=== PATIENT | male | born 1940 | race Asian ===

== ENCOUNTER 2016-12-05 06:34 | Emergency (ER) | payer OTHER ==
[~2016-12-05] VITALS: Ht 160 cm; Wt 71.0 kg
[~2016-12-05 06:34] MED LIST: ACET-1600 PO; ASPI-515 PO; ATOR40TA PO; ATOR80TA75 PO; GABA100C8 PO; GLYB5TAB3 PO; LEVO500T33 PO; LOSA50TA6 PO; TELM1TAB2 PO
[2016-12-05] MEDS ORDERED: SODIUM CHLORIDE 0.9% 1,000 ML IV ONE (06:55)
[2016-12-05] MEDS ORDERED: DIPH,PERTUSS(ACELL),TET VAC/PF 0.5 ML IM-VACC ONE ×2 (07:00→07:22)
[2016-12-05] MEDS ORDERED: AMPICILLIN/SULBACTAM 3 GM in SODIUM CHLORIDE 0.9% 100 ML IVPB ONE (07:00)
[2016-12-05] MEDS ORDERED: MULT-717 PO (07:09)
[2016-12-05] MEDS ORDERED: GLIM4TAB2 PO (07:10)
[2016-12-05 07:25] LABS: HEMOGLOBIN 14.5 g/dL (13.7-18.0)
[2016-12-05 07:30] LABS: BLOOD UREA NITROGEN 32 mg/dL (7-18)
[2016-12-05 08:49] VITALS: BP 151/84
== END 2016-12-05 08:53 | disposition home or self-care (01) ==
LOC: ED 08:47
DX: L03.031 Cellulitis of right toe (principal); L60.0 Ingrowing nail; E11.40 Type 2 diabetes mellitus with diabetic neuropathy, unspecified; I10 Essential (primary) hypertension; E78.00 Pure hypercholesterolemia, unspecified; Z88.8 Allergy status to other drugs, medicaments and biological substances
CPT/HCPCS: 36415; 73630; 80048; 82040; 83605; 84550; 85025; 87040; 90471; 90715; 96365; 99285; J0295; J7030

== ENCOUNTER 2018-06-27 09:14 | Inpatient (IN) | payer OTHER, MEDICARE ==
[~2018-06-27] VITALS: Ht 160 cm; Wt 73.6 kg
[~2018-06-27 09:14] MED LIST changes: +ATOR-2 PO; -ATOR80TA75 PO; +GABA-826 PO; -GABA100C8 PO; +GLIM4TAB2 PO; -LEVO500T33 PO; +LEVO500T47 PO; -LOSA50TA6 PO; +LOSA50TA7 PO; +MULT-717 PO
[2018-06-27] MEDS ORDERED: SODIUM CHLORIDE FLUSH 10ML SYR IVF ONE (10:00)
[2018-06-27 10:21] LABS: BASOPHILS # (AUTO) 0.01 x10^3/uL (0-0.1); BASOPHILS % (AUTO) 0 % (0-1); EOSINOPHILS # (AUTO) 0.09 x10^3/uL (0-0.4); EOSINOPHILS % (AUTO) 1 % (1-7); LYMPHOCYTES % (AUTO) 6 % (22-44); MD NO; MEAN CORPUSCULAR HEMOGLOBIN 31.7 pg (27.5-34.5); MEAN CORPUSCULAR HGB CONC 33.6 g/dL (33.2-36.2); MEAN CORPUSCULAR VOLUME 94.4 fL (81-97); MEAN PLATELET VOLUME 7.1 fL (7.4-10.4); MONOCYTES # (AUTO) 0.42 x10^3/uL (0.2-0.8); MONOCYTES % (AUTO) 5 % (2-9); NEUTROPHILS % (AUTO) 88 % (42-75); PLATELET COUNT 259 x10^3/uL (130-400); RED BLOOD COUNT 4.48 x10^6/uL (4.38-5.82); RED CELL DISTRIBUTION WIDTH 13.1 % (9.4-14.8)
[2018-06-27 10:27] LABS: ALANINE AMINOTRANSFERASE 761 U/L (12-78); ALBUMIN 3.5 g/dL (3.4-5.0); ANION GAP 14 mmol/L (5-15); CALCIUM 8.9 mg/dL (8.5-10.1); CHLORIDE 85 mmol/L (98-107)
[2018-06-27 10:32] LABS: ALKALINE PHOSPHATASE 231 U/L (45-117); BILIRUBIN,TOTAL 5.1 mg/dL (0.2-1.0); CREATININE 1.75 mg/dL (0.7-1.3); TROPONIN I 0.072 ng/mL (0.000-0.045)
[2018-06-27] MEDS ORDERED: SODIUM CHLORIDE 0.9% 1,000 ML IV ONE (10:40)
[2018-06-27] MEDS ORDERED: ASPIRIN 81 MG TABLET CHEW ONE (10:50)
[2018-06-27 10:58] LABS: CULTURE INDICATED? YES; MICROSCOPIC INDICATED
[2018-06-27] MEDS ORDERED: ASPIRIN 81 MG TABLET CHEW PO ONE (11:00)
[2018-06-27 11:32] LABS: CREATINE KINASE, TOTAL 22134 U/L (39-308)
[2018-06-27] MEDS ORDERED: NS + 20MEQ KCL 1,000 ML IV SCH (11:32)
[2018-06-27] MEDS ORDERED: GLUCAGON 1 MG IM PRN (12:00)
[2018-06-27] MEDS ORDERED: ONDANSETRON 2MG/ML, 2ML IVPush PRN (12:00)
[2018-06-27] MEDS ORDERED: DEXTROSE 4 GM TAB.CHEW PO PRN (12:00)
[2018-06-27] MEDS ORDERED: DEXTROSE 50%, 50ML SYRINGE IVPush PRN (12:00)
[2018-06-27] MEDS ORDERED: hydrALAzine 20 MG/ML, 1ML IVPush PRN (12:00)
[2018-06-27] MEDS ORDERED: LABETALOL 5MG/ML, 20ML IVPush PRN (12:00)
[2018-06-27] MEDS ORDERED: OXYcodone IR 5MG TABLET PO PRN (12:00)
[2018-06-27 12:22] LABS: CHOLESTEROL, TOTAL 129 mg/dL (140-239); TRIGLYCERIDES 116 mg/dL (50-200); VLDL CHOLESTEROL 23 mg/dL (0-25)
[2018-06-27 12:25] LABS: CHOL/HDL RATIO 4.8; HDL CHOL % 21 % (26-37); HDL CHOLESTEROL (DIRECT) 27 mg/dL (40-60); LDL CHOLESTEROL,CALCULATED 79 mg/dL (54-169); LDL/HDL RATIO 2.9 (0.5-3.0)
[2018-06-27 12:33] LABS: ACETAMINOPHEN < 2 mcg/mL (10-30)
[2018-06-27] MEDS: SODIUM CHLORIDE 0.9% 1,000 ML IV SCH ×2 (12:35→19:22)
[2018-06-27 12:53] VITALS: BP 111/68
[2018-06-27 13:44] LABS: ANION GAP 14 mmol/L (5-15); CALCIUM 8.7 mg/dL (8.5-10.1); CHLORIDE 89 mmol/L (98-107); CREATININE 1.62 mg/dL (0.7-1.3)
[2018-06-27 14:18] LABS: INTERNATIONAL NORMALIZED RATIO 1.03 (0.93-1.1); PROTHROMBIN TIME 10.6 Seconds (9.6-11.5)
[2018-06-27] MEDS: INSULIN LISPRO 100 UNITS/ML, PEN SQ-INSULIN SCH ×2 (16:00→21:41)
[2018-06-27] MEDS: HEPARIN 5,000 UNITS/ML, 1ML SQ SCH (17:40)
[2018-06-27 19:22] LABS: OSMOLALITY,URINE 416 mOsm/kg (500-850)
[2018-06-27 19:41] LABS: ANION GAP 10 mmol/L (5-15); CALCIUM 8.7 mg/dL (8.5-10.1); CHLORIDE 92 mmol/L (98-107); CREATININE 1.65 mg/dL (0.7-1.3)
[2018-06-27 20:43] VITALS: BP 100/62
[2018-06-27] MEDS: SODIUM CHLORIDE FLUSH 10ML SYR IVF SCH (21:41)
[2018-06-27 22:33] LABS: TROPONIN I 0.054 ng/mL (0.000-0.045)
[2018-06-28 01:28] VITALS: BP 102/66
[2018-06-28] MEDS: HEPARIN 5,000 UNITS/ML, 1ML SQ SCH (02:05)
[2018-06-28] MEDS: SODIUM CHLORIDE 0.9% 1,000 ML IV SCH (02:05)
[2018-06-28 02:30] LABS: ANION GAP 15 mmol/L (5-15); CHLORIDE 94 mmol/L (98-107); CREATININE 1.58 mg/dL (0.7-1.3)
[2018-06-28] MEDS: morphine SULFATE 10 MG/ML, 1ML IVPush PRN ×2 (04:32→04:58)
[2018-06-28 04:45] VITALS: BP 113/72
[2018-06-28 05:52] LABS: BASOPHILS # (AUTO) 0.01 x10^3/uL (0-0.1); BASOPHILS % (AUTO) 0 % (0-1); EOSINOPHILS # (AUTO) 0.01 x10^3/uL (0-0.4); EOSINOPHILS % (AUTO) 0 % (1-7); LYMPHOCYTES # (AUTO) 1.01 x10^3/uL (1-3.4); LYMPHOCYTES % (AUTO) 31 % (22-44); MD NO; MEAN CORPUSCULAR HEMOGLOBIN 31.4 pg (27.5-34.5); MEAN CORPUSCULAR HGB CONC 33.4 g/dL (33.2-36.2); MEAN PLATELET VOLUME 7.3 fL (7.4-10.4); MONOCYTES % (AUTO) 6 % (2-9); NEUTROPHILS # (AUTO) 2.08 x10^3/uL (1.8-6.8); NEUTROPHILS % (AUTO) 63 % (42-75); PLATELET COUNT 209 x10^3/uL (130-400); RED BLOOD COUNT 4.31 x10^6/uL (4.38-5.82); RED CELL DISTRIBUTION WIDTH 13.6 % (9.4-14.8)
[2018-06-28] MEDS ORDERED: SUCCINYLCHOLINE 20 MG/ML, 10ML ONE (05:52)
[2018-06-28] MEDS ORDERED: FENTANYL PF 250 MCG/5ML ONE (05:52)
[2018-06-28] MEDS ORDERED: ROCURONIUM 10MG/ML,5ML ONE (05:52)
[2018-06-28 06:01] LABS: ANION GAP 18 mmol/L (5-15); CALCIUM 8.6 mg/dL (8.5-10.1); CHLORIDE 94 mmol/L (98-107)
[2018-06-28] MEDS ORDERED: CALCIUM CHLORIDE 10%, 10ML SYR ONE (06:12)
[2018-06-28] MEDS ORDERED: SODIUM BICARB 8.4%, 50ML SYRINGE ONE ×2 (06:12)
[2018-06-28] MEDS ORDERED: PHENYLEPHRINE 10 MG/ML ONE (06:12)
[2018-06-28] MEDS ORDERED: PROPOFOL 10 MG/ML, 20ML ONE (06:12)
[2018-06-28] MEDS ORDERED: CEFOTETAN 2 GM ONE (06:12)
[2018-06-28] MEDS ORDERED: KETOROLAC 30 MG/1 ML ONE (06:12)
[2018-06-28] MEDS ORDERED: VASOPRESSIN 20 UNIT/ML, 1ML ONE (06:12)
[2018-06-28 06:28] LABS: ALANINE AMINOTRANSFERASE 500 U/L (12-78); ALKALINE PHOSPHATASE 194 U/L (45-117); CREATINE KINASE, TOTAL 9918 U/L (39-308); CREATININE 1.72 mg/dL (0.7-1.3); TOTAL PROTEIN 8.2 g/dL (6.4-8.2)
[2018-06-28 07:22] LABS: HEMOGLOBIN BY BLOOD GAS ANALYZ 12.1 g/dL (14.0-18.0)
[2018-06-28] MEDS ORDERED: PANTOPRAZOLE 40 MG IV IVPush ONE (07:30)
[2018-06-28] MEDS: ASPIRIN 81 MG TABLET EC PO SCH (09:00)
[2018-06-28] MEDS ORDERED: HYDROmorphone 1 MG/ML, 1ML IV PRN (09:30)
[2018-06-28] MEDS: LABETALOL 5MG/ML, 20ML IVPush SCH ×2 (09:30→16:46)
[2018-06-28] MEDS ORDERED: DO NOT STOP ANTIBIOTICS AFTER 24HRS MC SCH (09:30)
[2018-06-28] MEDS ORDERED: HYDROmorphone 2 MG/ML, 1ML ONE (09:30)
[2018-06-28] MEDS ORDERED: ONDANSETRON 2MG/ML, 2ML IV PRN (09:30)
[2018-06-28] MEDS ORDERED: PROPOFOL 100 ML IV ONE (09:36)
[2018-06-28] MEDS ORDERED: NOREPINEPHRINE 4 MG in SODIUM CHLORIDE 0.9% 246 ML IV PRN (10:30)
[2018-06-28] MEDS: POTASSIUM CHLORIDE 20 MEQ in SODIUM CHLORIDE 0.9% 1,000 ML IV SCH ×3 (10:30→22:42)
[2018-06-28] MEDS: INSULIN LISPRO 100 UNITS/ML, PEN SQ-INSULIN SCH ×4 (10:30→20:44)
[2018-06-28] MEDS: CEFOTETAN PMX 2GM/50ML 50 ML IVPB SCH ×2 (10:31→22:42)
[2018-06-28] MEDS: PANTOPRAZOLE 40 MG IV IVPush SCH ×2 (10:37→22:42)
[2018-06-28] MEDS: SODIUM CHLORIDE FLUSH 10ML SYR IVF SCH ×2 (10:37→20:42)
[2018-06-28] MEDS ORDERED: PROPOFOL 100 ML IV PRN (11:33)
[2018-06-28] MEDS ORDERED: PHARMACY MAY ADJ FOR RENAL FX MC SCH (12:00)
[2018-06-28] MEDS ORDERED: LIDOCAINE-MPF 1%, 2ML ENDO PRN (12:00)
[2018-06-28] MEDS: SUCRALFATE 1 GM/10 ML UDC PO SCH ×3 (12:09→23:15)
[2018-06-28] MEDS: NOREPINEPHRINE 8 MG in SODIUM CHLORIDE 0.9% 242 ML IV PRN ×3 (13:24→22:43)
[2018-06-28 13:25] LABS: MD YES; MEAN CORPUSCULAR HEMOGLOBIN 31.8 pg (27.5-34.5); MEAN CORPUSCULAR HGB CONC 34.2 g/dL (33.2-36.2); MEAN CORPUSCULAR VOLUME 93.2 fL (81-97); MEAN PLATELET VOLUME 7.2 fL (7.4-10.4); PLATELET COUNT 258 x10^3/uL (130-400); RED BLOOD COUNT 3.43 x10^6/uL (4.38-5.82); RED CELL DISTRIBUTION WIDTH 13.1 % (9.4-14.8)
[2018-06-28 13:30] LABS: INTERNATIONAL NORMALIZED RATIO 0.97 (0.93-1.1)
[2018-06-28 13:34] LABS: ANION GAP 15 mmol/L (5-15); CALCIUM 7.6 mg/dL (8.5-10.1); CHLORIDE 101 mmol/L (98-107); CREATININE 2.53 mg/dL (0.7-1.3)
[2018-06-28 13:48] LABS: CREATINE KINASE, TOTAL 3981 U/L (39-308)
[2018-06-28 14:01] LABS: BAND#(MANUAL) 0.89 x10^3/uL; BANDS%(MANUAL) 24 % (0-7); LYMPH#(MANUAL) 0.67 x10^3/uL (1-3.4); LYMPHS% (MANUAL) 18 % (22-44); METAMYELOCYTES# (MANUAL) 0.11 x10^3/uL (0-0); METAMYELOCYTES% (MANUAL) 3 % (0-1); MONOS#(MANUAL) 0.19 x10^3/uL (0.3-2.7); MONOS% (MANUAL) 5 % (2-9); SEG#(MANUAL) 1.85 x10^3/uL (1.8-6.8); SEGS% (MANUAL) 50 % (42-75)
[2018-06-28 14:02] LABS: <PLATELET ESTIMATE> ADEQUATE; <PLT MORPHOLOGY> NORMAL PLT MORPH; <RBC MORPHOLOGY> NORMAL; SMUDGE CELLS 1+; TOXIC GRAN 1+
[2018-06-28] MEDS: VASOPRESSIN 100 UNIT in SODIUM CHLORIDE 0.9% 495 ML IV PRN (14:16)
[2018-06-28] MEDS: PROPOFOL 100 ML IV PRN ×2 (16:28→22:43)
[2018-06-28 23:46] LABS: ANION GAP 16 mmol/L (5-15); CALCIUM 7.4 mg/dL (8.5-10.1); CHLORIDE 105 mmol/L (98-107); CREATININE 2.45 mg/dL (0.7-1.3)
[2018-06-28 23:55] LABS: MEAN CORPUSCULAR HEMOGLOBIN 32.3 pg (27.5-34.5); MEAN CORPUSCULAR HGB CONC 34.1 g/dL (33.2-36.2); MEAN CORPUSCULAR VOLUME 94.5 fL (81-97); MEAN PLATELET VOLUME 7.8 fL (7.4-10.4); PLATELET COUNT 258 x10^3/uL (130-400); RED BLOOD COUNT 3.16 x10^6/uL (4.38-5.82); RED CELL DISTRIBUTION WIDTH 13.5 % (9.4-14.8)
[2018-06-29] MEDS: LABETALOL 5MG/ML, 20ML IVPush SCH ×3 (00:12→17:30)
[2018-06-29 00:22] LABS: BASOPHILS # (AUTO) 0.01 x10^3/uL (0-0.1); BASOPHILS % (AUTO) 0 % (0-1); EOSINOPHILS # (AUTO) 0.01 x10^3/uL (0-0.4); EOSINOPHILS % (AUTO) 0 % (1-7); LYMPHOCYTES # (AUTO) 0.63 x10^3/uL (1-3.4); LYMPHOCYTES % (AUTO) 8 % (22-44); MD SCAN; MONOCYTES # (AUTO) 0.44 x10^3/uL (0.2-0.8); MONOCYTES % (AUTO) 6 % (2-9); NEUTROPHILS # (AUTO) 6.55 x10^3/uL (1.8-6.8); NEUTROPHILS % (AUTO) 86 % (42-75)
[2018-06-29] MEDS: NOREPINEPHRINE 8 MG in SODIUM CHLORIDE 0.9% 242 ML IV PRN ×4 (05:10→19:57)
[2018-06-29] MEDS: SUCRALFATE 1 GM/10 ML UDC PO SCH ×4 (05:13→23:38)
[2018-06-29 05:17] LABS: BASOPHILS % (AUTO) 0 % (0-1); EOSINOPHILS # (AUTO) 0.03 x10^3/uL (0-0.4); EOSINOPHILS % (AUTO) 0 % (1-7); LYMPHOCYTES # (AUTO) 0.74 x10^3/uL (1-3.4); LYMPHOCYTES % (AUTO) 9 % (22-44); MD NO; MEAN CORPUSCULAR HEMOGLOBIN 32.6 pg (27.5-34.5); MEAN CORPUSCULAR HGB CONC 34.2 g/dL (33.2-36.2); MEAN CORPUSCULAR VOLUME 95.4 fL (81-97); MEAN PLATELET VOLUME 7.5 fL (7.4-10.4); MONOCYTES # (AUTO) 0.37 x10^3/uL (0.2-0.8); MONOCYTES % (AUTO) 5 % (2-9); NEUTROPHILS # (AUTO) 6.95 x10^3/uL (1.8-6.8); NEUTROPHILS % (AUTO) 86 % (42-75); PLATELET COUNT 251 x10^3/uL (130-400); RED BLOOD COUNT 2.96 x10^6/uL (4.38-5.82); RED CELL DISTRIBUTION WIDTH 13.5 % (9.4-14.8)
[2018-06-29 05:33] LABS: CHLORIDE 108 mmol/L (98-107)
[2018-06-29 05:42] LABS: ALANINE AMINOTRANSFERASE 214 U/L (12-78); ALBUMIN 1.6 g/dL (3.4-5.0); ALKALINE PHOSPHATASE 109 U/L (45-117); ANION GAP 15 mmol/L (5-15); CALCIUM 7.3 mg/dL (8.5-10.1); CREATININE 2.59 mg/dL (0.7-1.3); TOTAL PROTEIN 5.7 g/dL (6.4-8.2)
[2018-06-29] MEDS ORDERED: ENOXAPARIN 40 MG/0.4 ML SQ SCH (06:00)
[2018-06-29] MEDS: INSULIN LISPRO 100 UNITS/ML, PEN SQ-INSULIN SCH ×4 (06:47→17:47)
[2018-06-29] MEDS: PROPOFOL 100 ML IV PRN ×2 (06:49→16:36)
[2018-06-29] MEDS ORDERED: SODIUM BICARBONATE 8.4% 150 MEQ in DEXTROSE 5% 1,000 ML IV SCH (08:00)
[2018-06-29] MEDS: ASPIRIN 81 MG TABLET EC PO SCH (11:34)
[2018-06-29] MEDS: PANTOPRAZOLE 40 MG IV IVPush SCH ×2 (11:34→20:12)
[2018-06-29] MEDS: PIPERACILLIN/TAZO/PMX 3.375GM 50 ML IV SCH ×3 (11:35→20:12)
[2018-06-29] MEDS: MICAFUNGIN 100 MG in SODIUM CHLORIDE 0.9% 100 ML IV SCH (11:35)
[2018-06-29] MEDS: SODIUM CHLORIDE FLUSH 10ML SYR IVF SCH ×2 (11:37→20:12)
[2018-06-29 14:15] LABS: BASOPHILS % (AUTO) 0 % (0-1); EOSINOPHILS # (AUTO) 0.08 x10^3/uL (0-0.4); EOSINOPHILS % (AUTO) 1 % (1-7); LYMPHOCYTES # (AUTO) 0.82 x10^3/uL (1-3.4); LYMPHOCYTES % (AUTO) 10 % (22-44); MD NO; MEAN CORPUSCULAR HEMOGLOBIN 32.9 pg (27.5-34.5); MEAN CORPUSCULAR HGB CONC 34.4 g/dL (33.2-36.2); MEAN CORPUSCULAR VOLUME 95.4 fL (81-97); MEAN PLATELET VOLUME 7.1 fL (7.4-10.4); MONOCYTES # (AUTO) 0.37 x10^3/uL (0.2-0.8); MONOCYTES % (AUTO) 5 % (2-9); NEUTROPHILS # (AUTO) 7.09 x10^3/uL (1.8-6.8); NEUTROPHILS % (AUTO) 85 % (42-75); PLATELET COUNT 253 x10^3/uL (130-400); RED BLOOD COUNT 2.81 x10^6/uL (4.38-5.82); RED CELL DISTRIBUTION WIDTH 13.7 % (9.4-14.8)
[2018-06-29 14:23] LABS: ANION GAP 14 mmol/L (5-15); CALCIUM 7.4 mg/dL (8.5-10.1); CHLORIDE 108 mmol/L (98-107); CREATININE 2.45 mg/dL (0.7-1.3)
[2018-06-29 14:38] LABS: CREATINE KINASE, TOTAL 1348 U/L (39-308)
[2018-06-29] MEDS ORDERED: FUROSEMIDE 100 MG/10 ML IV ONE (15:30)
[2018-06-29] MEDS ORDERED: FUROSEMIDE 20 MG/2 ML ONE (15:52)
[2018-06-29] MEDS ORDERED: FUROSEMIDE 40 MG/4 ML ONE (15:52)
[2018-06-29 18:23] LABS: CREATININE,URINE RANDOM 45.3 mg/dL
[2018-06-29] MEDS: AMIODARONE 200 MG TABLET PO SCH (20:12)
[2018-06-29 22:24] LABS: ANION GAP 12 mmol/L (5-15); CALCIUM 7.4 mg/dL (8.5-10.1); CHLORIDE 103 mmol/L (98-107); CREATININE 2.37 mg/dL (0.7-1.3)
[2018-06-29] MEDS ORDERED: MAGNESIUM SULFATE PMX 2GM/50ML 50 ML IV ONE (23:00)
[2018-06-30] MEDS: PROPOFOL 100 ML IV PRN ×4 (00:08→23:29)
[2018-06-30] MEDS: LABETALOL 5MG/ML, 20ML IVPush SCH ×3 (01:30→16:04)
[2018-06-30] MEDS: NOREPINEPHRINE 8 MG in SODIUM CHLORIDE 0.9% 242 ML IV PRN ×3 (01:52→16:47)
[2018-06-30] MEDS: PIPERACILLIN/TAZO/PMX 3.375GM 50 ML IV SCH ×4 (01:52→20:15)
[2018-06-30 04:26] LABS: BASOPHILS % (AUTO) 0 % (0-1); EOSINOPHILS # (AUTO) 0.12 x10^3/uL (0-0.4); EOSINOPHILS % (AUTO) 2 % (1-7); LYMPHOCYTES # (AUTO) 0.59 x10^3/uL (1-3.4); LYMPHOCYTES % (AUTO) 7 % (22-44); MD NO; MEAN CORPUSCULAR HEMOGLOBIN 32.6 pg (27.5-34.5); MEAN CORPUSCULAR HGB CONC 34.1 g/dL (33.2-36.2); MEAN CORPUSCULAR VOLUME 95.7 fL (81-97); MONOCYTES # (AUTO) 0.46 x10^3/uL (0.2-0.8); MONOCYTES % (AUTO) 6 % (2-9); NEUTROPHILS % (AUTO) 86 % (42-75); PLATELET COUNT 261 x10^3/uL (130-400); RED BLOOD COUNT 2.51 x10^6/uL (4.38-5.82); RED CELL DISTRIBUTION WIDTH 13.9 % (9.4-14.8)
[2018-06-30 04:45] LABS: ANION GAP 12 mmol/L (5-15); CALCIUM 7.8 mg/dL (8.5-10.1); CHLORIDE 102 mmol/L (98-107); CREATININE 2.21 mg/dL (0.7-1.3)
[2018-06-30] MEDS: SUCRALFATE 1 GM/10 ML UDC PO SCH ×4 (04:52→23:21)
[2018-06-30] MEDS ORDERED: POTASSIUM CHLORIDE 10 MEQ in SODIUM CHLORIDE 0.9% 1,000 ML IV SCH (07:00)
[2018-06-30] MEDS ORDERED: SODIUM BICARBONATE 8.4% 150 MEQ in DEXTROSE 5% 1,000 ML IV SCH ×3 (08:00)
[2018-06-30] MEDS: ASPIRIN 81 MG TABLET EC PO SCH (08:33)
[2018-06-30] MEDS: AMIODARONE 200 MG TABLET PO SCH ×2 (08:33→20:28)
[2018-06-30] MEDS: SODIUM CHLORIDE FLUSH 10ML SYR IVF SCH ×2 (08:34→20:27)
[2018-06-30] MEDS: ENOXAPARIN 30 MG/0.3 ML SQ SCH (08:35)
[2018-06-30] MEDS: MICAFUNGIN 100 MG in SODIUM CHLORIDE 0.9% 100 ML IV SCH (08:45)
[2018-06-30] MEDS: FENTANYL PF 100 MCG/2ML IVPush PRN ×3 (08:45→23:53)
[2018-06-30] MEDS: INSULIN LISPRO 100 UNITS/ML, PEN SQ-INSULIN SCH ×3 (09:17→20:58)
[2018-06-30] MEDS: PANTOPRAZOLE 40 MG IV IVPush SCH ×2 (09:17→22:23)
[2018-06-30 10:50] LABS: BASOPHILS % (AUTO) 0 % (0-1); EOSINOPHILS # (AUTO) 0.25 x10^3/uL (0-0.4); EOSINOPHILS % (AUTO) 3 % (1-7); LYMPHOCYTES # (AUTO) 0.65 x10^3/uL (1-3.4); LYMPHOCYTES % (AUTO) 8 % (22-44); MD NO; MEAN CORPUSCULAR HEMOGLOBIN 32.8 pg (27.5-34.5); MEAN CORPUSCULAR HGB CONC 34.9 g/dL (33.2-36.2); MEAN CORPUSCULAR VOLUME 93.9 fL (81-97); MEAN PLATELET VOLUME 7.1 fL (7.4-10.4); MONOCYTES # (AUTO) 0.08 x10^3/uL (0.2-0.8); MONOCYTES % (AUTO) 1 % (2-9); NEUTROPHILS # (AUTO) 6.92 x10^3/uL (1.8-6.8); NEUTROPHILS % (AUTO) 88 % (42-75); PLATELET COUNT 243 x10^3/uL (130-400); RED CELL DISTRIBUTION WIDTH 13.3 % (9.4-14.8)
[2018-06-30 11:02] LABS: ANION GAP 10 mmol/L (5-15); CALCIUM 7.9 mg/dL (8.5-10.1); CHLORIDE 99 mmol/L (98-107)
[2018-06-30 11:03] LABS: CREATININE 2.07 mg/dL (0.7-1.3)
[2018-06-30] MEDS: NS + 20MEQ KCL 1,000 ML IV SCH (13:04)
[2018-06-30 16:34] LABS: ANION GAP 12 mmol/L (5-15); CALCIUM 7.6 mg/dL (8.5-10.1); CHLORIDE 101 mmol/L (98-107); CREATININE 1.99 mg/dL (0.7-1.3)
[2018-06-30 16:36] LABS: MEAN CORPUSCULAR HEMOGLOBIN 32.5 pg (27.5-34.5); MEAN CORPUSCULAR HGB CONC 34.5 g/dL (33.2-36.2); MEAN CORPUSCULAR VOLUME 94.1 fL (81-97); MEAN PLATELET VOLUME 6.6 fL (7.4-10.4); PLATELET COUNT 240 x10^3/uL (130-400); RED BLOOD COUNT 2.39 x10^6/uL (4.38-5.82); RED CELL DISTRIBUTION WIDTH 13.9 % (9.4-14.8)
[2018-06-30 16:58] LABS: BASOPHILS # (AUTO) 0.01 x10^3/uL (0-0.1); BASOPHILS % (AUTO) 0 % (0-1); EOSINOPHILS # (AUTO) 0.29 x10^3/uL (0-0.4); EOSINOPHILS % (AUTO) 4 % (1-7); LYMPHOCYTES % (AUTO) 12 % (22-44); MD SCAN; MONOCYTES # (AUTO) 0.49 x10^3/uL (0.2-0.8); MONOCYTES % (AUTO) 6 % (2-9); NEUTROPHILS # (AUTO) 6.14 x10^3/uL (1.8-6.8); NEUTROPHILS % (AUTO) 79 % (42-75)
[2018-06-30] MEDS ORDERED: POTASSIUM CHLORIDE 20 MEQ in SODIUM CHLORIDE 0.9% 250 ML IV ONE (22:00)
[2018-07-01] MEDS: LABETALOL 5MG/ML, 20ML IVPush SCH ×3 (01:30→17:30)
[2018-07-01] MEDS: PIPERACILLIN/TAZO/PMX 3.375GM 50 ML IV SCH ×4 (01:52→21:33)
[2018-07-01] MEDS: INSULIN LISPRO 100 UNITS/ML, PEN SQ-INSULIN SCH ×4 (03:25→21:35)
[2018-07-01 04:49] LABS: ANION GAP 12 mmol/L (5-15); CALCIUM 7.3 mg/dL (8.5-10.1); CHLORIDE 103 mmol/L (98-107); CREATININE 1.76 mg/dL (0.7-1.3); MEAN CORPUSCULAR HEMOGLOBIN 31.9 pg (27.5-34.5); MEAN CORPUSCULAR HGB CONC 33.9 g/dL (33.2-36.2); MEAN CORPUSCULAR VOLUME 94.3 fL (81-97); MEAN PLATELET VOLUME 7.1 fL (7.4-10.4); PLATELET COUNT 231 x10^3/uL (130-400); RED CELL DISTRIBUTION WIDTH 13.4 % (9.4-14.8); TRIGLYCERIDES 305 mg/dL (50-200)
[2018-07-01 05:15] LABS: BASOPHILS % (AUTO) 0 % (0-1); EOSINOPHILS # (AUTO) 0.22 x10^3/uL (0-0.4); EOSINOPHILS % (AUTO) 3 % (1-7); LYMPHOCYTES # (AUTO) 0.76 x10^3/uL (1-3.4); LYMPHOCYTES % (AUTO) 11 % (22-44); MD SCAN; MONOCYTES # (AUTO) 0.38 x10^3/uL (0.2-0.8); MONOCYTES % (AUTO) 6 % (2-9); NEUTROPHILS # (AUTO) 5.32 x10^3/uL (1.8-6.8); NEUTROPHILS % (AUTO) 80 % (42-75)
[2018-07-01] MEDS: SUCRALFATE 1 GM/10 ML UDC PO SCH ×4 (05:25→23:55)
[2018-07-01] MEDS: NS + 20MEQ KCL 1,000 ML IV SCH (06:11)
[2018-07-01] MEDS: FENTANYL PF 100 MCG/2ML IVPush PRN ×2 (06:12→08:19)
[2018-07-01] MEDS: ENOXAPARIN 30 MG/0.3 ML SQ SCH (08:16)
[2018-07-01] MEDS: AMIODARONE 200 MG TABLET PO SCH ×2 (08:16→21:34)
[2018-07-01] MEDS: SODIUM CHLORIDE FLUSH 10ML SYR IVF SCH ×2 (08:17→21:33)
[2018-07-01] MEDS: ASPIRIN 81 MG TABLET EC PO SCH (08:17)
[2018-07-01] MEDS ORDERED: POTASSIUM CHLORIDE 40 MEQ in SODIUM CHLORIDE 0.9% 100 ML IV ONE (09:00)
[2018-07-01] MEDS: MICAFUNGIN 100 MG in SODIUM CHLORIDE 0.9% 100 ML IV SCH (09:19)
[2018-07-01] MEDS: PANTOPRAZOLE 40 MG IV IVPush SCH ×2 (09:25→21:35)
[2018-07-01] MEDS: NS + 40MEQ KCL 1,000 ML IV SCH (10:40)
[2018-07-01] MEDS: PROPOFOL 100 ML IV PRN (14:04)
[2018-07-01] MEDS: NOREPINEPHRINE 8 MG in SODIUM CHLORIDE 0.9% 242 ML IV PRN (21:37)
[2018-07-01 22:57] LABS: ANION GAP 11 mmol/L (5-15); CALCIUM 7.4 mg/dL (8.5-10.1); CHLORIDE 108 mmol/L (98-107); CREATININE 1.71 mg/dL (0.7-1.3)
[2018-07-02] MEDS: LABETALOL 5MG/ML, 20ML IVPush SCH ×3 (02:49→15:04)
[2018-07-02] MEDS: PIPERACILLIN/TAZO/PMX 3.375GM 50 ML IV SCH ×4 (02:49→19:47)
[2018-07-02] MEDS: INSULIN LISPRO 100 UNITS/ML, PEN SQ-INSULIN SCH ×4 (04:20→20:58)
[2018-07-02] MEDS: NS + 40MEQ KCL 1,000 ML IV SCH (05:14)
[2018-07-02] MEDS: PROPOFOL 100 ML IV PRN ×2 (05:16→17:17)
[2018-07-02] MEDS: SUCRALFATE 1 GM/10 ML UDC PO SCH ×4 (05:16→22:39)
[2018-07-02 06:19] LABS: MEAN CORPUSCULAR HEMOGLOBIN 32.6 pg (27.5-34.5); MEAN CORPUSCULAR HGB CONC 34.6 g/dL (33.2-36.2); MEAN CORPUSCULAR VOLUME 94.1 fL (81-97); MEAN PLATELET VOLUME 7.5 fL (7.4-10.4); PLATELET COUNT 245 x10^3/uL (130-400); RED BLOOD COUNT 2.13 x10^6/uL (4.38-5.82); RED CELL DISTRIBUTION WIDTH 14.3 % (9.4-14.8)
[2018-07-02 06:38] LABS: ALANINE AMINOTRANSFERASE 94 U/L (12-78); ALBUMIN 1.7 g/dL (3.4-5.0); ANION GAP 10 mmol/L (5-15); CALCIUM 7.6 mg/dL (8.5-10.1); CHLORIDE 108 mmol/L (98-107); CREATININE 1.61 mg/dL (0.7-1.3)
[2018-07-02 06:40] LABS: ALKALINE PHOSPHATASE 163 U/L (45-117); BILIRUBIN,TOTAL 1.6 mg/dL (0.2-1.0); TOTAL PROTEIN 6.4 g/dL (6.4-8.2)
[2018-07-02 06:43] LABS: BASOPHILS # (AUTO) 0.01 x10^3/uL (0-0.1); BASOPHILS % (AUTO) 0 % (0-1); EOSINOPHILS # (AUTO) 0.24 x10^3/uL (0-0.4); EOSINOPHILS % (AUTO) 3 % (1-7); LYMPHOCYTES # (AUTO) 1.03 x10^3/uL (1-3.4); LYMPHOCYTES % (AUTO) 15 % (22-44); MD SCAN; MONOCYTES # (AUTO) 0.48 x10^3/uL (0.2-0.8); MONOCYTES % (AUTO) 7 % (2-9); NEUTROPHILS # (AUTO) 5.34 x10^3/uL (1.8-6.8); NEUTROPHILS % (AUTO) 75 % (42-75)
[2018-07-02] MEDS: MICAFUNGIN 100 MG in SODIUM CHLORIDE 0.9% 100 ML IV SCH (09:47)
[2018-07-02] MEDS: ENOXAPARIN 40 MG/0.4 ML SQ SCH (09:48)
[2018-07-02] MEDS: SODIUM CHLORIDE FLUSH 10ML SYR IVF SCH ×2 (09:48→20:46)
[2018-07-02] MEDS: AMIODARONE 200 MG TABLET PO SCH ×2 (09:48→20:46)
[2018-07-02] MEDS: PANTOPRAZOLE 40 MG IV IVPush SCH ×2 (09:49→22:39)
[2018-07-02] MEDS: ASPIRIN 81 MG TABLET EC PO SCH (09:49)
[2018-07-02 10:15] VITALS: BP 101/36
[2018-07-02 10:30] VITALS: BP 98/41
[2018-07-02 10:45] VITALS: BP 104/44
[2018-07-02 11:59] VITALS: BP 114/51
[2018-07-02 12:15] VITALS: BP 114/55
[2018-07-02] MEDS: VASOPRESSIN 100 UNIT in SODIUM CHLORIDE 0.9% 495 ML IV PRN (12:27)
[2018-07-02] MEDS: NOREPINEPHRINE 8 MG in SODIUM CHLORIDE 0.9% 242 ML IV PRN (12:28)
[2018-07-02 12:30] VITALS: BP 111/39
[2018-07-02 16:06] LABS: BASOPHILS # (AUTO) 0.01 x10^3/uL (0-0.1); BASOPHILS % (AUTO) 0 % (0-1); EOSINOPHILS # (AUTO) 0.23 x10^3/uL (0-0.4); EOSINOPHILS % (AUTO) 4 % (1-7); LYMPHOCYTES # (AUTO) 0.89 x10^3/uL (1-3.4); LYMPHOCYTES % (AUTO) 15 % (22-44); MD NO; MEAN CORPUSCULAR HEMOGLOBIN 30.7 pg (27.5-34.5); MEAN CORPUSCULAR HGB CONC 33.5 g/dL (33.2-36.2); MEAN CORPUSCULAR VOLUME 91.5 fL (81-97); MEAN PLATELET VOLUME 7.4 fL (7.4-10.4); MONOCYTES # (AUTO) 0.38 x10^3/uL (0.2-0.8); MONOCYTES % (AUTO) 6 % (2-9); NEUTROPHILS # (AUTO) 4.59 x10^3/uL (1.8-6.8); NEUTROPHILS % (AUTO) 75 % (42-75); PLATELET COUNT 225 x10^3/uL (130-400); RED BLOOD COUNT 2.98 x10^6/uL (4.38-5.82); RED CELL DISTRIBUTION WIDTH 15.1 % (9.4-14.8)
[2018-07-03] MEDS: LABETALOL 5MG/ML, 20ML IVPush SCH ×3 (01:30→18:16)
[2018-07-03] MEDS: PIPERACILLIN/TAZO/PMX 3.375GM 50 ML IV SCH ×4 (01:56→20:29)
[2018-07-03] MEDS: INSULIN LISPRO 100 UNITS/ML, PEN SQ-INSULIN SCH ×4 (03:39→20:41)
[2018-07-03 04:17] LABS: BASOPHILS # (AUTO) 0.01 x10^3/uL (0-0.1); BASOPHILS % (AUTO) 0 % (0-1); EOSINOPHILS # (AUTO) 0.34 x10^3/uL (0-0.4); EOSINOPHILS % (AUTO) 6 % (1-7); LYMPHOCYTES # (AUTO) 0.92 x10^3/uL (1-3.4); LYMPHOCYTES % (AUTO) 15 % (22-44); MD NO; MEAN CORPUSCULAR HEMOGLOBIN 31.8 pg (27.5-34.5); MEAN CORPUSCULAR HGB CONC 34.5 g/dL (33.2-36.2); MEAN CORPUSCULAR VOLUME 92.4 fL (81-97); MEAN PLATELET VOLUME 7.2 fL (7.4-10.4); MONOCYTES # (AUTO) 0.27 x10^3/uL (0.2-0.8); MONOCYTES % (AUTO) 5 % (2-9); NEUTROPHILS # (AUTO) 4.48 x10^3/uL (1.8-6.8); NEUTROPHILS % (AUTO) 74 % (42-75); PLATELET COUNT 227 x10^3/uL (130-400); RED BLOOD COUNT 2.85 x10^6/uL (4.38-5.82); RED CELL DISTRIBUTION WIDTH 15.1 % (9.4-14.8)
[2018-07-03 04:27] LABS: ANION GAP 10 mmol/L (5-15); CALCIUM 7.4 mg/dL (8.5-10.1); CHLORIDE 110 mmol/L (98-107); CREATININE 1.72 mg/dL (0.7-1.3)
[2018-07-03] MEDS: SUCRALFATE 1 GM/10 ML UDC PO SCH ×4 (06:10→22:07)
[2018-07-03] MEDS: ENOXAPARIN 40 MG/0.4 ML SQ SCH (08:00)
[2018-07-03] MEDS: MICAFUNGIN 100 MG in SODIUM CHLORIDE 0.9% 100 ML IV SCH (08:46)
[2018-07-03] MEDS: SODIUM CHLORIDE FLUSH 10ML SYR IVF SCH ×2 (09:08→20:29)
[2018-07-03] MEDS: ASPIRIN 81 MG TABLET CHEW PO SCH (09:08)
[2018-07-03] MEDS: AMIODARONE 200 MG TABLET PO SCH ×2 (09:09→20:29)
[2018-07-03] MEDS ORDERED: ENOXAPARIN 30 MG/0.3 ML SQ SCH (10:00)
[2018-07-03] MEDS: PANTOPRAZOLE 40 MG IV IVPush SCH ×2 (10:22→22:07)
[2018-07-03 19:05] LABS: CLOSTRIDIUM DIFFICILE ANTIGEN NEGATIVE; CLOSTRIDIUM DIFFICILE TOXIN NEGATIVE (Negative)
[2018-07-03] MEDS ORDERED: LACTATED RINGERS 1,000 ML IV SCH ×2 (21:30)
[2018-07-03] MEDS ORDERED: METOCLOPRAMIDE 5 MG/ML, 2ML IVPush PRN (22:00)
[2018-07-04] MEDS: LABETALOL 5MG/ML, 20ML IVPush SCH ×3 (01:14→17:56)
[2018-07-04] MEDS: PIPERACILLIN/TAZO/PMX 3.375GM 50 ML IV SCH ×4 (02:19→21:11)
[2018-07-04] MEDS: INSULIN LISPRO 100 UNITS/ML, PEN SQ-INSULIN SCH ×4 (03:00→21:00)
[2018-07-04] MEDS ORDERED: hydrALAzine 20 MG/ML, 1ML IV ONE (03:30)
[2018-07-04] MEDS ORDERED: ALBUTEROL/IPRATROPIUM 2.5MG/0.5MG, 3 ML ONE (03:33)
[2018-07-04 04:08] LABS: BASOPHILS # (AUTO) 0.05 x10^3/uL (0-0.1); BASOPHILS % (AUTO) 1 % (0-1); EOSINOPHILS # (AUTO) 0.43 x10^3/uL (0-0.4); EOSINOPHILS % (AUTO) 4 % (1-7); LYMPHOCYTES # (AUTO) 1.22 x10^3/uL (1-3.4); LYMPHOCYTES % (AUTO) 12 % (22-44); MD NO; MEAN CORPUSCULAR HEMOGLOBIN 32.1 pg (27.5-34.5); MEAN CORPUSCULAR HGB CONC 34.9 g/dL (33.2-36.2); MEAN CORPUSCULAR VOLUME 91.9 fL (81-97); MEAN PLATELET VOLUME 7.3 fL (7.4-10.4); MONOCYTES # (AUTO) 0.44 x10^3/uL (0.2-0.8); MONOCYTES % (AUTO) 4 % (2-9); NEUTROPHILS # (AUTO) 8.02 x10^3/uL (1.8-6.8); NEUTROPHILS % (AUTO) 79 % (42-75); PLATELET COUNT 303 x10^3/uL (130-400); RED BLOOD COUNT 3.58 x10^6/uL (4.38-5.82); RED CELL DISTRIBUTION WIDTH 14.9 % (9.4-14.8)
[2018-07-04 04:18] LABS: ALANINE AMINOTRANSFERASE 77 U/L (12-78); ALBUMIN 1.7 g/dL (3.4-5.0); ANION GAP 11 mmol/L (5-15); CALCIUM 7.9 mg/dL (8.5-10.1); CHLORIDE 112 mmol/L (98-107); CREATININE 1.43 mg/dL (0.7-1.3)
[2018-07-04 04:20] LABS: ALKALINE PHOSPHATASE 209 U/L (45-117); BILIRUBIN,TOTAL 1.4 mg/dL (0.2-1.0); TOTAL PROTEIN 7.1 g/dL (6.4-8.2)
[2018-07-04] MEDS ORDERED: FUROSEMIDE 40 MG/4 ML ONE (04:27)
[2018-07-04] MEDS ORDERED: FUROSEMIDE 40 MG/4 ML IV ONE (04:30)
[2018-07-04] MEDS: SUCRALFATE 1 GM/10 ML UDC PO SCH ×4 (06:46→21:11)
[2018-07-04] MEDS: MICAFUNGIN 100 MG in SODIUM CHLORIDE 0.9% 100 ML IV SCH (07:54)
[2018-07-04] MEDS: PANTOPRAZOLE 40 MG IV IVPush SCH ×2 (08:50→21:10)
[2018-07-04] MEDS: ENOXAPARIN 40 MG/0.4 ML SQ SCH (08:50)
[2018-07-04] MEDS: ASPIRIN 81 MG TABLET CHEW PO SCH (08:50)
[2018-07-04] MEDS: AMIODARONE 200 MG TABLET PO SCH ×2 (08:51→21:00)
[2018-07-04] MEDS: SODIUM CHLORIDE FLUSH 10ML SYR IVF SCH ×2 (08:51→21:11)
[2018-07-04] MEDS ORDERED: LACTATED RINGERS 1,000 ML IV SCH (09:00)
[2018-07-04] MEDS ORDERED: ENOXAPARIN 40 MG/0.4 ML SQ SCH (09:00)
[2018-07-04 14:05] VITALS: BP 149/67
[2018-07-04] MEDS: NS + 20MEQ KCL 1,000 ML IV SCH ×2 (14:38→22:38)
[2018-07-04 17:55] VITALS: BP 162/70
[2018-07-04 19:09] VITALS: BP 127/67
[2018-07-05 01:43] VITALS: BP 157/65
[2018-07-05] MEDS: LABETALOL 5MG/ML, 20ML IVPush SCH ×3 (01:46→17:44)
[2018-07-05 02:24] VITALS: BP 149/66
[2018-07-05] MEDS: PIPERACILLIN/TAZO/PMX 3.375GM 50 ML IV SCH ×4 (02:59→21:15)
[2018-07-05] MEDS: INSULIN LISPRO 100 UNITS/ML, PEN SQ-INSULIN SCH ×4 (03:00→21:00)
[2018-07-05] MEDS: SUCRALFATE 1 GM/10 ML UDC PO SCH ×4 (05:22→23:45)
[2018-07-05] MEDS: NS + 20MEQ KCL 1,000 ML IV SCH ×2 (05:34→15:57)
[2018-07-05] MEDS: FUROSEMIDE 20 MG/2 ML IV SCH (05:34)
[2018-07-05 06:09] LABS: BASOPHILS # (AUTO) 0.02 x10^3/uL (0-0.1); BASOPHILS % (AUTO) 0 % (0-1); EOSINOPHILS # (AUTO) 0.36 x10^3/uL (0-0.4); EOSINOPHILS % (AUTO) 6 % (1-7); LYMPHOCYTES # (AUTO) 0.73 x10^3/uL (1-3.4); LYMPHOCYTES % (AUTO) 12 % (22-44); MD NO; MEAN CORPUSCULAR HEMOGLOBIN 31.2 pg (27.5-34.5); MEAN CORPUSCULAR VOLUME 91.9 fL (81-97); MEAN PLATELET VOLUME 7.3 fL (7.4-10.4); MONOCYTES # (AUTO) 0.44 x10^3/uL (0.2-0.8); MONOCYTES % (AUTO) 7 % (2-9); NEUTROPHILS # (AUTO) 4.82 x10^3/uL (1.8-6.8); NEUTROPHILS % (AUTO) 76 % (42-75); PLATELET COUNT 309 x10^3/uL (130-400); RED BLOOD COUNT 3.31 x10^6/uL (4.38-5.82); RED CELL DISTRIBUTION WIDTH 15.3 % (9.4-14.8)
[2018-07-05 07:03] VITALS: BP 163/74
[2018-07-05 07:19] LABS: ALANINE AMINOTRANSFERASE 68 U/L (12-78); ALBUMIN 1.7 g/dL (3.4-5.0); ANION GAP 13 mmol/L (5-15); CALCIUM 7.8 mg/dL (8.5-10.1); CHLORIDE 116 mmol/L (98-107); CREATININE 1.46 mg/dL (0.7-1.3)
[2018-07-05 07:22] LABS: ALKALINE PHOSPHATASE 157 U/L (45-117); BILIRUBIN,TOTAL 1.2 mg/dL (0.2-1.0); TOTAL PROTEIN 6.7 g/dL (6.4-8.2)
[2018-07-05] MEDS ORDERED: FUROSEMIDE 40 MG/4 ML IV ONE (09:30)
[2018-07-05] MEDS: MICAFUNGIN 100 MG in SODIUM CHLORIDE 0.9% 100 ML IV SCH (09:49)
[2018-07-05] MEDS: SODIUM CHLORIDE FLUSH 10ML SYR IVF SCH ×2 (09:49→21:15)
[2018-07-05] MEDS: PANTOPRAZOLE 40 MG IV IVPush SCH ×2 (09:50→21:15)
[2018-07-05] MEDS: ASPIRIN 81 MG TABLET CHEW PO SCH (09:50)
[2018-07-05] MEDS: AMIODARONE 200 MG TABLET PO SCH ×2 (09:51→21:00)
[2018-07-05] MEDS: ENOXAPARIN 40 MG/0.4 ML SQ SCH (09:51)
[2018-07-05 12:20] VITALS: BP 158/76
[2018-07-05 17:44] VITALS: BP 131/74
[2018-07-05 18:50] VITALS: BP 137/72
[2018-07-06 01:15] VITALS: BP 131/58
[2018-07-06] MEDS: LABETALOL 5MG/ML, 20ML IVPush SCH ×3 (02:27→17:20)
[2018-07-06] MEDS: PIPERACILLIN/TAZO/PMX 3.375GM 50 ML IV SCH ×4 (02:27→21:36)
[2018-07-06] MEDS: INSULIN LISPRO 100 UNITS/ML, PEN SQ-INSULIN SCH ×4 (02:36→21:59)
[2018-07-06] MEDS: SUCRALFATE 1 GM/10 ML UDC PO SCH ×4 (05:18→23:43)
[2018-07-06] MEDS: FUROSEMIDE 20 MG/2 ML IV SCH (05:19)
[2018-07-06] MEDS: NS + 20MEQ KCL 1,000 ML IV SCH ×2 (05:19→17:19)
[2018-07-06 06:48] LABS: ANION GAP 9 mmol/L (5-15); CALCIUM 8.7 mg/dL (8.5-10.1); CHLORIDE 112 mmol/L (98-107); CREATININE 1.53 mg/dL (0.7-1.3)
[2018-07-06 06:50] VITALS: BP 146/65
[2018-07-06] MEDS: MICAFUNGIN 100 MG in SODIUM CHLORIDE 0.9% 100 ML IV SCH (07:58)
[2018-07-06] MEDS ORDERED: POTASSIUM CHLORIDE 20 MEQ in SODIUM CHLORIDE 0.9% 250 ML IV ONE (08:30)
[2018-07-06] MEDS: ASPIRIN 81 MG TABLET CHEW PO SCH (09:25)
[2018-07-06] MEDS: PANTOPRAZOLE 40 MG IV IVPush SCH ×2 (09:25→21:37)
[2018-07-06] MEDS: AMIODARONE 200 MG TABLET PO SCH ×2 (09:25→21:41)
[2018-07-06] MEDS: SODIUM CHLORIDE FLUSH 10ML SYR IVF SCH ×2 (09:25→21:37)
[2018-07-06] MEDS: ENOXAPARIN 40 MG/0.4 ML SQ SCH (09:29)
[2018-07-06 12:45] VITALS: BP 133/65
[2018-07-06] MEDS: POTASSIUM CHLORIDE 20 MEQ PACKET PO SCH (17:19)
[2018-07-06 19:11] VITALS: BP 131/65
[2018-07-06] MEDS: INSULIN GLARGINE 100 UNITS/ML, PEN SQ-INSULIN SCH (21:58)
[2018-07-07 02:03] VITALS: BP 142/68
[2018-07-07] MEDS: INSULIN LISPRO 100 UNITS/ML, PEN SQ-INSULIN SCH ×5 (03:00→21:49)
[2018-07-07] MEDS: PIPERACILLIN/TAZO/PMX 3.375GM 50 ML IV SCH (03:11)
[2018-07-07 04:55] LABS: ANION GAP 10 mmol/L (5-15); CALCIUM 7.9 mg/dL (8.5-10.1); CHLORIDE 113 mmol/L (98-107); CREATININE 1.45 mg/dL (0.7-1.3)
[2018-07-07] MEDS: FUROSEMIDE 20 MG/2 ML IV SCH (05:11)
[2018-07-07] MEDS: LABETALOL 100 MG TABLET PO SCH ×2 (05:11→18:04)
[2018-07-07] MEDS: SUCRALFATE 1 GM/10 ML UDC PO SCH ×3 (05:11→18:04)
[2018-07-07] MEDS ORDERED: MAGNESIUM SULFATE PMX 2GM/50ML 50 ML IV ONE (06:00)
[2018-07-07 06:55] VITALS: BP 149/70
[2018-07-07] MEDS ORDERED: POTASSIUM CHLORIDE 20 MEQ PACKET PO SCH (08:00)
[2018-07-07] MEDS: ASPIRIN 81 MG TABLET CHEW PO SCH (08:34)
[2018-07-07] MEDS: AMIODARONE 200 MG TABLET PO SCH ×2 (08:34→21:51)
[2018-07-07] MEDS: PANTOPRAZOLE 40 MG IV IVPush SCH ×2 (08:34→21:51)
[2018-07-07] MEDS: POTASSIUM CHLORIDE 20 MEQ PACKET PO SCH ×2 (08:35→18:04)
[2018-07-07] MEDS: SODIUM CHLORIDE FLUSH 10ML SYR IVF SCH ×2 (08:35→21:53)
[2018-07-07] MEDS: ENOXAPARIN 40 MG/0.4 ML SQ SCH (11:11)
[2018-07-07 13:17] VITALS: BP 127/70
[2018-07-07] MEDS ORDERED: INSULIN LISPRO 100 UNITS/ML, PEN SQ-INSULIN SCH (16:00)
[2018-07-07 18:47] VITALS: BP 102/59
[2018-07-07] MEDS: INSULIN GLARGINE 100 UNITS/ML, PEN SQ-INSULIN SCH (21:50)
[2018-07-08] MEDS: SUCRALFATE 1 GM/10 ML UDC PO SCH ×5 (00:01→23:50)
[2018-07-08 00:06] VITALS: BP 157/75
[2018-07-08] MEDS: FUROSEMIDE 20 MG/2 ML IV SCH (05:18)
[2018-07-08] MEDS: LABETALOL 100 MG TABLET PO SCH (05:19)
[2018-07-08 07:15] VITALS: BP 117/66
[2018-07-08 08:41] LABS: ANION GAP 9 mmol/L (5-15); CALCIUM 9.4 mg/dL (8.5-10.1); CHLORIDE 107 mmol/L (98-107); CREATININE 1.45 mg/dL (0.7-1.3)
[2018-07-08] MEDS: PANTOPRAZOLE 40 MG IV IVPush SCH ×2 (09:00→21:31)
[2018-07-08] MEDS: AMIODARONE 200 MG TABLET PO SCH ×2 (09:09→21:32)
[2018-07-08] MEDS: INSULIN LISPRO 100 UNITS/ML, PEN SQ-INSULIN SCH ×4 (09:10→21:32)
[2018-07-08] MEDS: POTASSIUM CHLORIDE 20 MEQ PACKET PO SCH ×2 (09:10→17:38)
[2018-07-08] MEDS: ENOXAPARIN 40 MG/0.4 ML SQ SCH (09:10)
[2018-07-08] MEDS: ASPIRIN 81 MG TABLET CHEW PO SCH (09:10)
[2018-07-08] MEDS: SODIUM CHLORIDE FLUSH 10ML SYR IVF SCH ×2 (09:10→21:33)
[2018-07-08 13:26] VITALS: BP 125/70
[2018-07-08] MEDS: FUROSEMIDE 20 MG TABLET PO SCH (17:38)
[2018-07-08] MEDS: CARVEDILOL 3.125 MG TABLET PO SCH (17:38)
[2018-07-08 17:39] VITALS: BP 147/75
[2018-07-08 20:26] VITALS: BP 120/69
[2018-07-08] MEDS: APIXABAN 5 MG TABLET PO SCH (21:32)
[2018-07-08] MEDS: INSULIN GLARGINE 100 UNITS/ML, PEN SQ-INSULIN SCH (21:33)
[2018-07-09 02:00] VITALS: BP 131/68
[2018-07-09 06:11] VITALS: BP 107/62
[2018-07-09] MEDS: CARVEDILOL 3.125 MG TABLET PO SCH ×2 (06:14→16:53)
[2018-07-09] MEDS: SUCRALFATE 1 GM/10 ML UDC PO SCH ×4 (06:14→23:00)
[2018-07-09 06:58] LABS: ANION GAP 9 mmol/L (5-15); CALCIUM 8.5 mg/dL (8.5-10.1); CHLORIDE 107 mmol/L (98-107); CREATININE 1.68 mg/dL (0.7-1.3)
[2018-07-09] MEDS: INSULIN LISPRO 100 UNITS/ML, PEN SQ-INSULIN SCH ×4 (07:00→21:38)
[2018-07-09] MEDS: SODIUM CHLORIDE FLUSH 10ML SYR IVF SCH ×2 (09:00→21:00)
[2018-07-09] MEDS: ASPIRIN 81 MG TABLET CHEW PO SCH (09:37)
[2018-07-09] MEDS: AMIODARONE 200 MG TABLET PO SCH ×2 (09:37→21:37)
[2018-07-09] MEDS: LOSARTAN 50MG TABLET PO SCH (09:38)
[2018-07-09] MEDS: POTASSIUM CHLORIDE 20 MEQ PACKET PO SCH ×2 (09:38→16:54)
[2018-07-09] MEDS: APIXABAN 5 MG TABLET PO SCH ×2 (09:38→21:37)
[2018-07-09 14:00] VITALS: BP 134/64
[2018-07-09] MEDS: FUROSEMIDE 20 MG TABLET PO SCH (16:54)
[2018-07-09 18:56] VITALS: BP 103/60
[2018-07-09 21:35] VITALS: BP 127/61
[2018-07-09] MEDS: FAMOTIDINE 20 MG TABLET PO SCH (21:37)
[2018-07-09] MEDS: INSULIN GLARGINE 100 UNITS/ML, PEN SQ-INSULIN SCH (21:39)
[2018-07-10 01:08] VITALS: BP 120/58
[2018-07-10 05:57] VITALS: BP 131/68
[2018-07-10] MEDS: SUCRALFATE 1 GM/10 ML UDC PO SCH ×3 (06:00→16:53)
[2018-07-10] MEDS: CARVEDILOL 3.125 MG TABLET PO SCH ×2 (06:00→16:53)
[2018-07-10 06:36] LABS: ANION GAP 11 mmol/L (5-15); CHLORIDE 106 mmol/L (98-107); CREATININE 1.61 mg/dL (0.7-1.3)
[2018-07-10] MEDS: INSULIN LISPRO 100 UNITS/ML, PEN SQ-INSULIN SCH ×4 (07:00→21:00)
[2018-07-10 07:20] VITALS: BP 120/67
[2018-07-10] MEDS: LOSARTAN 50MG TABLET PO SCH (08:33)
[2018-07-10] MEDS: ASPIRIN 81 MG TABLET CHEW PO SCH (08:33)
[2018-07-10] MEDS: POTASSIUM CHLORIDE 20 MEQ PACKET PO SCH ×2 (08:33→16:53)
[2018-07-10] MEDS: APIXABAN 5 MG TABLET PO SCH ×2 (08:33→21:05)
[2018-07-10] MEDS: AMIODARONE 200 MG TABLET PO SCH ×2 (08:33→21:05)
[2018-07-10] MEDS: SODIUM CHLORIDE FLUSH 10ML SYR IVF SCH ×2 (09:00→21:05)
[2018-07-10 14:00] VITALS: BP 100/63
[2018-07-10] MEDS: FUROSEMIDE 20 MG TABLET PO SCH (16:53)
[2018-07-10 21:03] VITALS: BP 102/63
[2018-07-10] MEDS: INSULIN GLARGINE 100 UNITS/ML, PEN SQ-INSULIN SCH (21:04)
[2018-07-10] MEDS: FAMOTIDINE 20 MG TABLET PO SCH (21:05)
[2018-07-11] MEDS: SUCRALFATE 1 GM/10 ML UDC PO SCH ×4 (00:32→17:38)
[2018-07-11 02:17] VITALS: BP 118/66
[2018-07-11 05:51] VITALS: BP 109/61
[2018-07-11] MEDS: CARVEDILOL 3.125 MG TABLET PO SCH ×2 (05:52→17:38)
[2018-07-11] MEDS: INSULIN LISPRO 100 UNITS/ML, PEN SQ-INSULIN SCH ×4 (07:00→21:40)
[2018-07-11 07:10] VITALS: BP 107/61
[2018-07-11] MEDS: SODIUM CHLORIDE FLUSH 10ML SYR IVF SCH ×2 (08:58→21:34)
[2018-07-11] MEDS: LOSARTAN 50MG TABLET PO SCH (08:58)
[2018-07-11] MEDS: AMIODARONE 200 MG TABLET PO SCH ×2 (08:58→21:32)
[2018-07-11] MEDS: APIXABAN 5 MG TABLET PO SCH ×2 (08:58→21:32)
[2018-07-11] MEDS: POTASSIUM CHLORIDE 20 MEQ PACKET PO SCH ×2 (08:58→17:37)
[2018-07-11] MEDS: ASPIRIN 81 MG TABLET CHEW PO SCH (08:58)
[2018-07-11] MEDS: FUROSEMIDE 20 MG TABLET PO SCH (17:37)
[2018-07-11 19:20] VITALS: BP 122/64
[2018-07-11] MEDS: FAMOTIDINE 20 MG TABLET PO SCH (21:32)
[2018-07-11] MEDS: INSULIN GLARGINE 100 UNITS/ML, PEN SQ-INSULIN SCH (21:41)
[2018-07-12] MEDS: SUCRALFATE 1 GM/10 ML UDC PO SCH ×5 (00:07→23:32)
[2018-07-12 01:47] VITALS: BP 112/65
[2018-07-12] MEDS: CARVEDILOL 3.125 MG TABLET PO SCH ×2 (05:39→17:18)
[2018-07-12 07:18] VITALS: BP 132/76
[2018-07-12] MEDS: INSULIN LISPRO 100 UNITS/ML, PEN SQ-INSULIN SCH ×4 (08:39→20:20)
[2018-07-12] MEDS: ASPIRIN 81 MG TABLET CHEW PO SCH (09:15)
[2018-07-12] MEDS: AMIODARONE 200 MG TABLET PO SCH ×2 (09:15→21:05)
[2018-07-12] MEDS: LOSARTAN 50MG TABLET PO SCH (09:16)
[2018-07-12] MEDS: POTASSIUM CHLORIDE 20 MEQ PACKET PO SCH ×2 (09:16→17:18)
[2018-07-12] MEDS: SODIUM CHLORIDE FLUSH 10ML SYR IVF SCH ×2 (09:16→21:06)
[2018-07-12] MEDS: APIXABAN 5 MG TABLET PO SCH ×2 (09:16→21:05)
[2018-07-12 12:32] VITALS: BP 118/68
[2018-07-12] MEDS: FUROSEMIDE 20 MG TABLET PO SCH (17:18)
[2018-07-12 21:04] VITALS: BP 105/61
[2018-07-12] MEDS: FAMOTIDINE 20 MG TABLET PO SCH (21:05)
[2018-07-12] MEDS: INSULIN GLARGINE 100 UNITS/ML, PEN SQ-INSULIN SCH (21:06)
[2018-07-13 01:41] VITALS: BP 101/57
[2018-07-13 05:43] VITALS: BP 116/65
[2018-07-13] MEDS: SUCRALFATE 1 GM/10 ML UDC PO SCH ×3 (05:44→17:27)
[2018-07-13] MEDS: CARVEDILOL 3.125 MG TABLET PO SCH ×2 (05:45→17:28)
[2018-07-13 07:34] VITALS: BP 117/67
[2018-07-13] MEDS: LOSARTAN 50MG TABLET PO SCH (08:09)
[2018-07-13] MEDS: POTASSIUM CHLORIDE 20 MEQ PACKET PO SCH ×2 (08:09→17:28)
[2018-07-13] MEDS: AMIODARONE 200 MG TABLET PO SCH ×2 (08:09→21:15)
[2018-07-13] MEDS: APIXABAN 5 MG TABLET PO SCH ×2 (08:09→21:15)
[2018-07-13] MEDS: ASPIRIN 81 MG TABLET CHEW PO SCH (08:09)
[2018-07-13] MEDS: SODIUM CHLORIDE FLUSH 10ML SYR IVF SCH ×2 (08:10→21:14)
[2018-07-13] MEDS: INSULIN LISPRO 100 UNITS/ML, PEN SQ-INSULIN SCH ×4 (08:10→21:00)
[2018-07-13 13:36] VITALS: BP 126/69
[2018-07-13] MEDS: FUROSEMIDE 20 MG TABLET PO SCH (17:27)
[2018-07-13 19:24] VITALS: BP 122/64
[2018-07-13] MEDS: INSULIN GLARGINE 100 UNITS/ML, PEN SQ-INSULIN SCH (21:15)
[2018-07-13] MEDS: FAMOTIDINE 20 MG TABLET PO SCH (21:15)
[2018-07-14] MEDS: SUCRALFATE 1 GM/10 ML UDC PO SCH ×4 (00:56→16:50)
[2018-07-14 01:19] VITALS: BP 130/71
[2018-07-14] MEDS: CARVEDILOL 3.125 MG TABLET PO SCH ×2 (06:30→16:50)
[2018-07-14 06:31] VITALS: BP 126/60
[2018-07-14] MEDS: INSULIN LISPRO 100 UNITS/ML, PEN SQ-INSULIN SCH ×4 (07:00→21:59)
[2018-07-14] MEDS: LOSARTAN 50MG TABLET PO SCH (08:48)
[2018-07-14] MEDS: POTASSIUM CHLORIDE 20 MEQ PACKET PO SCH ×2 (08:48→16:49)
[2018-07-14] MEDS: ASPIRIN 81 MG TABLET CHEW PO SCH (08:48)
[2018-07-14] MEDS: AMIODARONE 200 MG TABLET PO SCH ×2 (08:48→21:59)
[2018-07-14] MEDS: MULTIVITAMINS WITH IRON TABLET PO SCH (08:48)
[2018-07-14] MEDS: APIXABAN 5 MG TABLET PO SCH ×2 (08:49→22:00)
[2018-07-14] MEDS: SODIUM CHLORIDE FLUSH 10ML SYR IVF SCH ×2 (08:49→22:01)
[2018-07-14] MEDS: FUROSEMIDE 20 MG TABLET PO SCH (16:50)
[2018-07-14 16:51] VITALS: BP 136/72
[2018-07-14 20:00] VITALS: BP 101/57
[2018-07-14] MEDS: INSULIN GLARGINE 100 UNITS/ML, PEN SQ-INSULIN SCH (21:58)
[2018-07-14] MEDS: FAMOTIDINE 20 MG TABLET PO SCH (22:00)
[2018-07-15] MEDS: SUCRALFATE 1 GM/10 ML UDC PO SCH ×3 (00:20→12:01)
[2018-07-15 02:00] VITALS: BP 112/62
[2018-07-15] MEDS: CARVEDILOL 3.125 MG TABLET PO SCH (05:59)
[2018-07-15 07:55] VITALS: BP 103/59
[2018-07-15] MEDS: APIXABAN 5 MG TABLET PO SCH (09:31)
[2018-07-15] MEDS: AMIODARONE 200 MG TABLET PO SCH (09:31)
[2018-07-15] MEDS: POTASSIUM CHLORIDE 20 MEQ PACKET PO SCH (09:31)
[2018-07-15] MEDS: ASPIRIN 81 MG TABLET CHEW PO SCH (09:31)
[2018-07-15] MEDS: INSULIN LISPRO 100 UNITS/ML, PEN SQ-INSULIN SCH ×3 (09:32→16:00)
[2018-07-15] MEDS: MULTIVITAMINS WITH IRON TABLET PO SCH (09:32)
[2018-07-15] MEDS: LOSARTAN 50MG TABLET PO SCH (09:32)
[2018-07-15] MEDS: SODIUM CHLORIDE FLUSH 10ML SYR IVF SCH (09:33)
[2018-07-15] MEDS ORDERED: FAMO20TA7 PO (11:40)
[2018-07-15] MEDS ORDERED: SUCR1ORA5 PO (11:40)
[2018-07-15] MEDS ORDERED: INSU100I13 SQ-INSULIN (11:40)
[2018-07-15] MEDS ORDERED: FURO20TA3 PO (11:40)
[2018-07-15] MEDS ORDERED: POTA20PA25 PO (11:40)
[2018-07-15] MEDS ORDERED: AMIO200T42 PO (11:40)
[2018-07-15] MEDS ORDERED: APIX5TAB PO (11:40)
[2018-07-15] MEDS ORDERED: CARV3.1212 PO (11:40)
[2018-07-15 12:29] VITALS: BP 139/73
== END 2018-07-15 17:25 | DRG 853 ==
LOC: ED 11:40 → EDIP 11:41 → 5SO 12:18 → CCU 06-28 08:28 → 4WST 07-04 13:57 → 3NE 07-14 09:27
PROVIDERS: ADMIT Family Medicine; ATTEND Family Medicine
PROC: 0T9B70Z Drainage of Bladder with Drainage Device, Via Natural or Artificial Opening (ICD-10-PCS; 2018-06-27)
PROC: 04L30ZZ Occlusion of Hepatic Artery, Open Approach (ICD-10-PCS; 2018-06-28)
PROC: 0W9G0ZZ Drainage of Peritoneal Cavity, Open Approach (ICD-10-PCS; 2018-06-28)
PROC: 5A1955Z Respiratory Ventilation, Greater than 96 Consecutive Hours (ICD-10-PCS; 2018-06-28)
PROC: 0BH17EZ Insertion of Endotracheal Airway into Trachea, Via Natural or Artificial Opening (ICD-10-PCS; 2018-06-28)
PROC: 02HV33Z Insertion of Infusion Device into Superior Vena Cava, Percutaneous Approach (ICD-10-PCS; 2018-06-28)
PROC: 0DQ90ZZ Repair Duodenum, Open Approach (ICD-10-PCS; principal; 2018-06-28 05:15)
PROC: 30233N1 Transfusion of Nonautologous Red Blood Cells into Peripheral Vein, Percutaneous Approach (ICD-10-PCS; 2018-07-02)
DX: A41.9 Sepsis, unspecified organism (principal); J96.00 Acute respiratory failure, unspecified whether with hypoxia or hypercapnia; K26.5 Chronic or unspecified duodenal ulcer with perforation; K72.00 Acute and subacute hepatic failure without coma; R65.21 Severe sepsis with septic shock; E43 Unspecified severe protein-calorie malnutrition; K25.5 Chronic or unspecified gastric ulcer with perforation; K85.90 Acute pancreatitis without necrosis or infection, unspecified; N17.0 Acute kidney failure with tubular necrosis; M62.82 Rhabdomyolysis; I50.20 Unspecified systolic (congestive) heart failure; D62 Acute posthemorrhagic anemia; E87.1 Hypo-osmolality and hyponatremia; R18.8 Other ascites; E11.9 Type 2 diabetes mellitus without complications; E78.00 Pure hypercholesterolemia, unspecified; E83.42 Hypomagnesemia; E83.51 Hypocalcemia; E87.6 Hypokalemia; I11.0 Hypertensive heart disease with heart failure; I35.8 Other nonrheumatic aortic valve disorders; I48.0 Paroxysmal atrial fibrillation; K21.9 Gastro-esophageal reflux disease without esophagitis; K66.8 Other specified disorders of peritoneum; S40.012A Contusion of left shoulder, initial encounter; W18.30XA Fall on same level, unspecified, initial encounter; Z51.5 Encounter for palliative care; Z79.01 Long term (current) use of anticoagulants; Z79.4 Long term (current) use of insulin; Z79.82 Long term (current) use of aspirin; Z82.49 Family history of ischemic heart disease and other diseases of the circulatory system; Z87.11 Personal history of peptic ulcer disease; Z87.891 Personal history of nicotine dependence; M19.90 Unspecified osteoarthritis, unspecified site; Y92.009 Unspecified place in unspecified non-institutional (private) residence as the place of occurrence of the external cause; Z68.28 Body mass index [BMI] 28.0-28.9, adult
CPT/HCPCS: 36415; 36600; 73060; 73070; 74018; 87338; 99291; S0074; 70450; 70551; 71045; 74176; 76700; 80048; 80053; 80061; 80074; 80307; 81001; 82533; 82550; 82570; 82803; 82962; 83605; 83690; 83735; 83880; 83930; 83935; 84156; 84478; 84484; 85014; 85018; 85025; 85610; 86850; 86900; 86923; 87040; 87070; 87081; 87086; 87205; 87324; 93005; 93306; 94002; 94003; 94150; 94640; C1729; G0378; J1170; J1644; J1650; J1885; J1940; J2248; J2543; J2704; J3010; J3480; J3490; J7070; C9113; J0330; J0360; J1815; J2270; J2370; J3475; J7030; J7040; J7050; J7120; P9016

== ENCOUNTER 2018-07-20 06:22 | Inpatient (IN) | payer OTHER, MEDICARE ==
[~2018-07-20] VITALS: Ht 160 cm; Wt 74.0 kg
[~2018-07-20 06:22] MED LIST changes: +AMIO200T42 PO; +APIX5TAB PO; +CARV3.1212 PO; +FAMO20TA7 PO; +FURO20TA3 PO; +INSU100I13 SQ-INSULIN; +POTA20PA25 PO; +SUCR1ORA5 PO
[2018-07-20] MEDS ORDERED: SODIUM CHLORIDE FLUSH 10ML SYR IVF ONE (07:00)
[2018-07-20 07:09] LABS: BASOPHILS # (AUTO) 0.02 x10^3/uL (0-0.1); BASOPHILS % (AUTO) 0 % (0-1); EOSINOPHILS # (AUTO) 0.08 x10^3/uL (0-0.4); EOSINOPHILS % (AUTO) 1 % (1-7); LYMPHOCYTES # (AUTO) 0.83 x10^3/uL (1-3.4); LYMPHOCYTES % (AUTO) 9 % (22-44); MD NO; MEAN CORPUSCULAR HEMOGLOBIN 30.6 pg (27.5-34.5); MEAN CORPUSCULAR VOLUME 92.7 fL (81-97); MEAN PLATELET VOLUME 7.8 fL (7.4-10.4); MONOCYTES # (AUTO) 0.54 x10^3/uL (0.2-0.8); MONOCYTES % (AUTO) 6 % (2-9); NEUTROPHILS # (AUTO) 7.47 x10^3/uL (1.8-6.8); NEUTROPHILS % (AUTO) 84 % (42-75); PLATELET COUNT 350 x10^3/uL (130-400); RED BLOOD COUNT 3.86 x10^6/uL (4.38-5.82); RED CELL DISTRIBUTION WIDTH 14.3 % (9.4-14.8)
[2018-07-20 07:18] LABS: ALANINE AMINOTRANSFERASE 54 U/L (12-78); ALBUMIN 2.6 g/dL (3.4-5.0); ANION GAP 9 mmol/L (5-15); CALCIUM 8.6 mg/dL (8.5-10.1); CHLORIDE 97 mmol/L (98-107)
[2018-07-20 07:23] LABS: ALKALINE PHOSPHATASE 116 U/L (45-117); BILIRUBIN,TOTAL 0.5 mg/dL (0.2-1.0); CREATININE 7.21 mg/dL (0.7-1.3); INTERNATIONAL NORMALIZED RATIO 1.05 (0.93-1.1); PROTHROMBIN TIME 11.1 Seconds (9.6-11.5); TOTAL PROTEIN 8.8 g/dL (6.4-8.2); TROPONIN I < 0.015 ng/mL (0.000-0.045)
[2018-07-20 07:46] LABS: CREATINE KINASE, TOTAL 2171 U/L (39-308)
[2018-07-20] MEDS ORDERED: SODIUM CHLORIDE 0.9% 1,000 ML IV ONE ×2 (08:00→08:06)
[2018-07-20] MEDS ORDERED: SODIUM CHLORIDE 0.9% 1,000ML IVBOLUS ONE (08:00)
[2018-07-20] MEDS ORDERED: LEVO500T8 PO (08:17)
[2018-07-20] MEDS ORDERED: ASPI-496 PO (08:19)
[2018-07-20] MEDS ORDERED: SODIUM CHLORIDE FLUSH 10ML SYR IVF PRN (08:30)
[2018-07-20 09:30] VITALS: BP 102/44
[2018-07-20] MEDS ORDERED: ENALAPRILAT 1.25 MG/ML, 2ML IVPush PRN (10:00)
[2018-07-20] MEDS ORDERED: ONDANSETRON ODT 4 MG PO PRN (10:00)
[2018-07-20] MEDS ORDERED: hydrALAzine 20 MG/ML, 1ML IVPush PRN (10:00)
[2018-07-20] MEDS: INSULIN LISPRO 100 UNITS/ML, PEN SQ-INSULIN SCH ×4 (11:00→20:17)
[2018-07-20] MEDS ORDERED: DEXTROSE 50%, 50ML SYRINGE ONE (12:09)
[2018-07-20] MEDS ORDERED: DEXTROSE 50%, 50ML SYRINGE IVPush ONE ×2 (12:30→17:00)
[2018-07-20 12:31] LABS: HEMOGLOBIN A1C 7.3 % (4.2-6.3)
[2018-07-20 12:57] VITALS: BP 115/63
[2018-07-20] MEDS ORDERED: SODIUM CHLORIDE 0.9% 1,000 ML IV SCH (14:00)
[2018-07-20 15:05] LABS: CALCIUM 8.2 mg/dL (8.5-10.1)
[2018-07-20] MEDS: D5%-0.9% NACL 1,000 ML IV SCH ×2 (16:43→23:57)
[2018-07-20] MEDS ORDERED: DEXTROSE 4 GM TAB.CHEW PO PRN (17:00)
[2018-07-20] MEDS ORDERED: DEXTROSE 50%, 50ML SYRINGE IVPush PRN (17:00)
[2018-07-20] MEDS ORDERED: GLUCAGON 1 MG IM PRN (17:00)
[2018-07-20] MEDS: SODIUM CHLORIDE FLUSH 10ML SYR IVF SCH (20:16)
[2018-07-20] MEDS: ATORVASTATIN 80 MG TABLET PO SCH (20:16)
[2018-07-20] MEDS: GABAPENTIN 100 MG CAPSULE PO SCH (20:16)
[2018-07-20] MEDS: APIXABAN 5 MG TABLET PO SCH (20:16)
[2018-07-20] MEDS: FAMOTIDINE 20 MG TABLET PO SCH (20:16)
[2018-07-20 20:28] VITALS: BP 111/63
[2018-07-21 00:05] VITALS: BP 124/63
[2018-07-21 06:06] LABS: BASOPHILS # (AUTO) 0.03 x10^3/uL (0-0.1); BASOPHILS % (AUTO) 1 % (0-1); EOSINOPHILS # (AUTO) 0.31 x10^3/uL (0-0.4); EOSINOPHILS % (AUTO) 5 % (1-7); LYMPHOCYTES # (AUTO) 0.96 x10^3/uL (1-3.4); LYMPHOCYTES % (AUTO) 16 % (22-44); MD NO; MEAN CORPUSCULAR HEMOGLOBIN 31.5 pg (27.5-34.5); MEAN CORPUSCULAR VOLUME 92.6 fL (81-97); MONOCYTES # (AUTO) 0.48 x10^3/uL (0.2-0.8); MONOCYTES % (AUTO) 8 % (2-9); NEUTROPHILS # (AUTO) 4.22 x10^3/uL (1.8-6.8); NEUTROPHILS % (AUTO) 70 % (42-75); PLATELET COUNT 294 x10^3/uL (130-400); RED BLOOD COUNT 3.26 x10^6/uL (4.38-5.82); RED CELL DISTRIBUTION WIDTH 14.7 % (9.4-14.8)
[2018-07-21 06:16] LABS: CHLORIDE 108 mmol/L (98-107)
[2018-07-21] MEDS: D5%-0.9% NACL 1,000 ML IV SCH ×3 (06:27→20:35)
[2018-07-21 06:39] LABS: ALANINE AMINOTRANSFERASE 43 U/L (12-78); ALKALINE PHOSPHATASE 91 U/L (45-117); ANION GAP 10 mmol/L (5-15); BILIRUBIN,TOTAL 0.4 mg/dL (0.2-1.0); CREATINE KINASE, TOTAL 2015 U/L (39-308); TOTAL PROTEIN 7.3 g/dL (6.4-8.2)
[2018-07-21 06:44] VITALS: BP 126/67
[2018-07-21] MEDS: INSULIN LISPRO 100 UNITS/ML, PEN SQ-INSULIN SCH ×4 (07:00→20:37)
[2018-07-21] MEDS: POTASSIUM CHLORIDE 20 MEQ TAB.ER.PRT PO SCH ×2 (07:36→16:37)
[2018-07-21] MEDS: APIXABAN 5 MG TABLET PO SCH ×2 (07:36→20:29)
[2018-07-21] MEDS: GABAPENTIN 100 MG CAPSULE PO SCH ×3 (07:36→20:29)
[2018-07-21] MEDS: SODIUM CHLORIDE FLUSH 10ML SYR IVF SCH ×2 (07:37→20:30)
[2018-07-21 08:44] LABS: MICROSCOPIC AUTO
[2018-07-21] MEDS ORDERED: ASPIRIN 81 MG TABLET EC PO SCH (09:00)
[2018-07-21] MEDS ORDERED: LEVOFLOXACIN 500 MG TABLET PO SCH (09:00)
[2018-07-21] MEDS: ASPIRIN 81 MG TABLET CHEW PO SCH (09:08)
[2018-07-21] MEDS ORDERED: ERGOCALCIFEROL 50,000 UNIT CAPSULE PO SCH (13:00)
[2018-07-21] MEDS ORDERED: CALCITRIOL 0.25 MCG CAPSULE PO SCH (13:00)
[2018-07-21 13:37] VITALS: BP 129/73
[2018-07-21] MEDS: IRON SUCROSE COMPLEX 100MG/5ML IV SCH (14:02)
[2018-07-21] MEDS ORDERED: CALCITRIOL 1 MCG/ML SOL PO SCH (14:24)
[2018-07-21] MEDS ORDERED: ERGOCALCIFEROL 8,000UNIT/ML PO SCH (14:30)
[2018-07-21 19:22] VITALS: BP 123/60
[2018-07-21] MEDS: ATORVASTATIN 80 MG TABLET PO SCH (20:29)
[2018-07-21] MEDS: FAMOTIDINE 20 MG TABLET PO SCH (20:29)
[2018-07-22] MEDS: D5%-0.9% NACL 1,000 ML IV SCH ×3 (00:53→14:00)
[2018-07-22 01:35] VITALS: BP 146/63
[2018-07-22 06:15] LABS: BASOPHILS # (AUTO) 0.02 x10^3/uL (0-0.1); BASOPHILS % (AUTO) 0 % (0-1); EOSINOPHILS # (AUTO) 0.46 x10^3/uL (0-0.4); EOSINOPHILS % (AUTO) 8 % (1-7); LYMPHOCYTES % (AUTO) 13 % (22-44); MD NO; MEAN CORPUSCULAR HEMOGLOBIN 30.6 pg (27.5-34.5); MEAN CORPUSCULAR HGB CONC 33.3 g/dL (33.2-36.2); MEAN CORPUSCULAR VOLUME 91.9 fL (81-97); MEAN PLATELET VOLUME 7.7 fL (7.4-10.4); MONOCYTES # (AUTO) 0.68 x10^3/uL (0.2-0.8); MONOCYTES % (AUTO) 11 % (2-9); NEUTROPHILS # (AUTO) 4.16 x10^3/uL (1.8-6.8); NEUTROPHILS % (AUTO) 68 % (42-75); PLATELET COUNT 275 x10^3/uL (130-400); RED BLOOD COUNT 3.31 x10^6/uL (4.38-5.82)
[2018-07-22 06:31] LABS: ALANINE AMINOTRANSFERASE 37 U/L (12-78); ALBUMIN 1.8 g/dL (3.4-5.0); ANION GAP 8 mmol/L (5-15); CALCIUM 7.7 mg/dL (8.5-10.1); CHLORIDE 116 mmol/L (98-107)
[2018-07-22 06:54] VITALS: BP 140/68
[2018-07-22] MEDS: INSULIN LISPRO 100 UNITS/ML, PEN SQ-INSULIN SCH ×4 (07:00→20:02)
[2018-07-22 07:02] LABS: ALKALINE PHOSPHATASE 98 U/L (45-117); BILIRUBIN,TOTAL 0.3 mg/dL (0.2-1.0); CREATINE KINASE, TOTAL 858 U/L (39-308); CREATININE 3.65 mg/dL (0.7-1.3); TOTAL PROTEIN 6.6 g/dL (6.4-8.2)
[2018-07-22] MEDS: CARVEDILOL 3.125 MG TABLET PO SCH ×2 (08:13→17:33)
[2018-07-22] MEDS: POTASSIUM CHLORIDE 20 MEQ TAB.ER.PRT PO SCH ×2 (08:13→16:58)
[2018-07-22] MEDS: GABAPENTIN 100 MG CAPSULE PO SCH ×3 (08:13→20:01)
[2018-07-22] MEDS: ASPIRIN 81 MG TABLET CHEW PO SCH (08:13)
[2018-07-22] MEDS: APIXABAN 5 MG TABLET PO SCH ×2 (08:13→20:01)
[2018-07-22] MEDS: SODIUM CHLORIDE FLUSH 10ML SYR IVF SCH ×2 (08:14→20:01)
[2018-07-22] MEDS: SODIUM BICARBONATE 650 MG TABLET PO SCH ×2 (11:10→20:01)
[2018-07-22 13:27] VITALS: BP 138/73
[2018-07-22] MEDS: IRON SUCROSE COMPLEX 100MG/5ML IV SCH (13:44)
[2018-07-22 18:31] VITALS: BP 128/66
[2018-07-22] MEDS: ATORVASTATIN 80 MG TABLET PO SCH (20:01)
[2018-07-22] MEDS: FAMOTIDINE 20 MG TABLET PO SCH (20:01)
[2018-07-22 23:35] LABS: CLOSTRIDIUM DIFFICILE ANTIGEN POSITIVE; CLOSTRIDIUM DIFFICILE TOXIN POSITIVE (Negative)
[2018-07-23] MEDS ORDERED: metroNIDAZOLE 500 MG TABLET PO SCH
[2018-07-23] MEDS: D5%-0.9% NACL 1,000 ML IV SCH ×2 (00:25→09:43)
[2018-07-23 00:47] VITALS: BP 119/57
[2018-07-23 05:12] VITALS: BP 120/64
[2018-07-23] MEDS: CARVEDILOL 3.125 MG TABLET PO SCH ×2 (05:14→20:22)
[2018-07-23] MEDS ORDERED: VANCOMYCIN PER PHARMACY MC PRN (08:00)
[2018-07-23 08:10] VITALS: BP 126/65
[2018-07-23 08:27] LABS: BASOPHILS # (AUTO) 0.03 x10^3/uL (0-0.1); BASOPHILS % (AUTO) 0 % (0-1); EOSINOPHILS # (AUTO) 0.36 x10^3/uL (0-0.4); EOSINOPHILS % (AUTO) 5 % (1-7); LYMPHOCYTES # (AUTO) 0.97 x10^3/uL (1-3.4); LYMPHOCYTES % (AUTO) 14 % (22-44); MD NO; MEAN CORPUSCULAR HEMOGLOBIN 30.6 pg (27.5-34.5); MEAN CORPUSCULAR HGB CONC 33.1 g/dL (33.2-36.2); MEAN CORPUSCULAR VOLUME 92.5 fL (81-97); MEAN PLATELET VOLUME 7.6 fL (7.4-10.4); MONOCYTES # (AUTO) 0.71 x10^3/uL (0.2-0.8); MONOCYTES % (AUTO) 10 % (2-9); NEUTROPHILS % (AUTO) 71 % (42-75); PLATELET COUNT 233 x10^3/uL (130-400); RED BLOOD COUNT 3.18 x10^6/uL (4.38-5.82)
[2018-07-23 08:39] LABS: ALANINE AMINOTRANSFERASE 26 U/L (12-78); ALBUMIN 1.5 g/dL (3.4-5.0); ANION GAP 8 mmol/L (5-15); CALCIUM 7.3 mg/dL (8.5-10.1); CHLORIDE 117 mmol/L (98-107); CREATININE 2.54 mg/dL (0.7-1.3)
[2018-07-23 08:41] LABS: ALKALINE PHOSPHATASE 87 U/L (45-117); BILIRUBIN,TOTAL 0.3 mg/dL (0.2-1.0); TOTAL PROTEIN 5.7 g/dL (6.4-8.2)
[2018-07-23] MEDS ORDERED: LEVOFLOXACIN 500 MG TABLET PO SCH (09:00)
[2018-07-23] MEDS: INSULIN LISPRO 100 UNITS/ML, PEN SQ-INSULIN SCH ×4 (09:41→20:22)
[2018-07-23] MEDS: SODIUM BICARBONATE 650 MG TABLET PO SCH (09:41)
[2018-07-23] MEDS: TAMSULOSIN 0.4 MG CAP.ER.24H PO SCH (09:42)
[2018-07-23] MEDS: APIXABAN 5 MG TABLET PO SCH ×2 (09:42→20:22)
[2018-07-23] MEDS: GABAPENTIN 100 MG CAPSULE PO SCH ×3 (09:42→20:22)
[2018-07-23] MEDS: POTASSIUM CHLORIDE 20 MEQ TAB.ER.PRT PO SCH ×2 (09:42→16:58)
[2018-07-23] MEDS: ASPIRIN 81 MG TABLET CHEW PO SCH (09:42)
[2018-07-23] MEDS: CALCITRIOL 0.25 MCG CAPSULE PO SCH (09:43)
[2018-07-23] MEDS: SODIUM CHLORIDE FLUSH 10ML SYR IVF SCH ×2 (09:43→20:22)
[2018-07-23] MEDS: VANCOMYCIN 50 MG/ML ORAL SUSP PO SCH ×3 (10:26→22:26)
[2018-07-23 12:15] VITALS: BP 114/68
[2018-07-23] MEDS: IRON SUCROSE COMPLEX 100MG/5ML IV SCH (16:35)
[2018-07-23] MEDS: SODIUM BICARB 8.4%,50ML SYR. 75 MEQ in SODIUM CHLORIDE 0.45% 1,000 ML IV SCH (16:59)
[2018-07-23 20:06] VITALS: BP 127/73
[2018-07-23] MEDS: FAMOTIDINE 20 MG TABLET PO SCH (20:22)
[2018-07-23] MEDS: ATORVASTATIN 80 MG TABLET PO SCH (20:22)
[2018-07-24 01:26] VITALS: BP 100/69
[2018-07-24] MEDS: VANCOMYCIN 50 MG/ML ORAL SUSP PO SCH ×4 (04:59→23:02)
[2018-07-24] MEDS: SODIUM BICARB 8.4%,50ML SYR. 75 MEQ in SODIUM CHLORIDE 0.45% 1,000 ML IV SCH ×2 (04:59→16:15)
[2018-07-24] MEDS: CARVEDILOL 3.125 MG TABLET PO SCH ×2 (04:59→17:05)
[2018-07-24 05:29] LABS: ALBUMIN 1.6 g/dL (3.4-5.0); ANION GAP 9 mmol/L (5-15); CALCIUM 7.6 mg/dL (8.5-10.1); CHLORIDE 113 mmol/L (98-107)
[2018-07-24 05:32] LABS: ALANINE AMINOTRANSFERASE 27 U/L (12-78); ALKALINE PHOSPHATASE 89 U/L (45-117); BILIRUBIN,TOTAL 0.4 mg/dL (0.2-1.0); TOTAL PROTEIN 5.9 g/dL (6.4-8.2)
[2018-07-24 05:35] LABS: BASOPHILS # (AUTO) 0.04 x10^3/uL (0-0.1); BASOPHILS % (AUTO) 1 % (0-1); EOSINOPHILS # (AUTO) 0.64 x10^3/uL (0-0.4); EOSINOPHILS % (AUTO) 8 % (1-7); LYMPHOCYTES % (AUTO) 11 % (22-44); MD NO; MEAN CORPUSCULAR HEMOGLOBIN 30.3 pg (27.5-34.5); MEAN CORPUSCULAR HGB CONC 33.3 g/dL (33.2-36.2); MEAN PLATELET VOLUME 7.5 fL (7.4-10.4); MONOCYTES # (AUTO) 0.73 x10^3/uL (0.2-0.8); MONOCYTES % (AUTO) 9 % (2-9); NEUTROPHILS # (AUTO) 6.14 x10^3/uL (1.8-6.8); NEUTROPHILS % (AUTO) 73 % (42-75); PLATELET COUNT 209 x10^3/uL (130-400); RED BLOOD COUNT 3.13 x10^6/uL (4.38-5.82)
[2018-07-24 07:10] VITALS: BP 101/64
[2018-07-24] MEDS: APIXABAN 5 MG TABLET PO SCH ×2 (10:04→20:56)
[2018-07-24] MEDS: POTASSIUM CHLORIDE 20 MEQ TAB.ER.PRT PO SCH ×2 (10:05→17:05)
[2018-07-24] MEDS: ASPIRIN 81 MG TABLET CHEW PO SCH (10:05)
[2018-07-24] MEDS: CALCITRIOL 0.25 MCG CAPSULE PO SCH (10:05)
[2018-07-24] MEDS: TAMSULOSIN 0.4 MG CAP.ER.24H PO SCH (10:05)
[2018-07-24] MEDS: GABAPENTIN 100 MG CAPSULE PO SCH ×3 (10:05→20:55)
[2018-07-24] MEDS: SODIUM CHLORIDE FLUSH 10ML SYR IVF SCH ×2 (10:06→20:56)
[2018-07-24] MEDS: INSULIN LISPRO 100 UNITS/ML, PEN SQ-INSULIN SCH ×4 (10:09→20:57)
[2018-07-24 12:06] VITALS: BP 121/70
[2018-07-24] MEDS ORDERED: MAGNESIUM SULFATE PMX 2 GM/50 ML IV ONE (12:30)
[2018-07-24] MEDS: IRON SUCROSE COMPLEX 100MG/5ML IV SCH (14:19)
[2018-07-24 19:11] VITALS: BP 107/54
[2018-07-24] MEDS: FAMOTIDINE 20 MG TABLET PO SCH (20:55)
[2018-07-24] MEDS: ATORVASTATIN 80 MG TABLET PO SCH (20:55)
[2018-07-25 01:08] VITALS: BP 113/62
[2018-07-25] MEDS: SODIUM BICARB 8.4%,50ML SYR. 75 MEQ in SODIUM CHLORIDE 0.45% 1,000 ML IV SCH (03:10)
[2018-07-25] MEDS: VANCOMYCIN 50 MG/ML ORAL SUSP PO SCH ×4 (04:33→22:16)
[2018-07-25 05:19] LABS: BASOPHILS # (AUTO) 0.03 x10^3/uL (0-0.1); BASOPHILS % (AUTO) 0 % (0-1); EOSINOPHILS # (AUTO) 0.91 x10^3/uL (0-0.4); EOSINOPHILS % (AUTO) 10 % (1-7); LYMPHOCYTES # (AUTO) 1.14 x10^3/uL (1-3.4); LYMPHOCYTES % (AUTO) 13 % (22-44); MD NO; MEAN CORPUSCULAR HEMOGLOBIN 31.2 pg (27.5-34.5); MEAN CORPUSCULAR VOLUME 91.6 fL (81-97); MEAN PLATELET VOLUME 7.4 fL (7.4-10.4); MONOCYTES # (AUTO) 0.74 x10^3/uL (0.2-0.8); MONOCYTES % (AUTO) 8 % (2-9); NEUTROPHILS # (AUTO) 5.97 x10^3/uL (1.8-6.8); NEUTROPHILS % (AUTO) 68 % (42-75); PLATELET COUNT 221 x10^3/uL (130-400); RED CELL DISTRIBUTION WIDTH 14.5 % (9.4-14.8)
[2018-07-25 05:26] LABS: ALBUMIN 1.9 g/dL (3.4-5.0); CALCIUM 8.1 mg/dL (8.5-10.1); CHLORIDE 107 mmol/L (98-107)
[2018-07-25 05:32] LABS: ALANINE AMINOTRANSFERASE 29 U/L (12-78); ALKALINE PHOSPHATASE 107 U/L (45-117); ANION GAP 4 mmol/L (5-15); BILIRUBIN,TOTAL 0.6 mg/dL (0.2-1.0); CREATININE 1.75 mg/dL (0.7-1.3); TOTAL PROTEIN 6.3 g/dL (6.4-8.2)
[2018-07-25 05:53] VITALS: BP 166/70
[2018-07-25] MEDS: CARVEDILOL 3.125 MG TABLET PO SCH ×2 (05:54→17:44)
[2018-07-25 06:57] VITALS: BP 144/71
[2018-07-25] MEDS: POTASSIUM CHLORIDE 20 MEQ TAB.ER.PRT PO SCH ×2 (08:37→17:44)
[2018-07-25] MEDS: SODIUM CHLORIDE FLUSH 10ML SYR IVF SCH ×2 (08:37→22:17)
[2018-07-25] MEDS: APIXABAN 5 MG TABLET PO SCH ×2 (08:37→22:16)
[2018-07-25] MEDS: TAMSULOSIN 0.4 MG CAP.ER.24H PO SCH (08:37)
[2018-07-25] MEDS: GABAPENTIN 100 MG CAPSULE PO SCH ×3 (08:37→22:16)
[2018-07-25] MEDS: CALCITRIOL 0.25 MCG CAPSULE PO SCH (08:37)
[2018-07-25] MEDS: ASPIRIN 81 MG TABLET CHEW PO SCH (08:37)
[2018-07-25] MEDS: INSULIN LISPRO 100 UNITS/ML, PEN SQ-INSULIN SCH ×4 (08:38→22:17)
[2018-07-25 12:23] VITALS: BP 146/71
[2018-07-25] MEDS: IRON SUCROSE COMPLEX 100MG/5ML IV SCH (13:40)
[2018-07-25 20:25] VITALS: BP 131/72
[2018-07-25] MEDS: FAMOTIDINE 20 MG TABLET PO SCH (22:16)
[2018-07-25] MEDS: ATORVASTATIN 80 MG TABLET PO SCH (22:16)
[2018-07-26 01:04] VITALS: BP 122/70
[2018-07-26] MEDS: VANCOMYCIN 50 MG/ML ORAL SUSP PO SCH ×4 (04:57→21:47)
[2018-07-26] MEDS: CARVEDILOL 3.125 MG TABLET PO SCH ×2 (05:00→16:42)
[2018-07-26 05:25] LABS: BASOPHILS # (AUTO) 0.02 x10^3/uL (0-0.1); BASOPHILS % (AUTO) 0 % (0-1); EOSINOPHILS % (AUTO) 11 % (1-7); LYMPHOCYTES # (AUTO) 1.16 x10^3/uL (1-3.4); LYMPHOCYTES % (AUTO) 18 % (22-44); MD NO; MEAN CORPUSCULAR HEMOGLOBIN 31.3 pg (27.5-34.5); MEAN CORPUSCULAR HGB CONC 34.4 g/dL (33.2-36.2); MEAN CORPUSCULAR VOLUME 90.9 fL (81-97); MEAN PLATELET VOLUME 7.8 fL (7.4-10.4); MONOCYTES # (AUTO) 0.77 x10^3/uL (0.2-0.8); MONOCYTES % (AUTO) 12 % (2-9); NEUTROPHILS # (AUTO) 3.92 x10^3/uL (1.8-6.8); NEUTROPHILS % (AUTO) 60 % (42-75); PLATELET COUNT 179 x10^3/uL (130-400); RED BLOOD COUNT 3.04 x10^6/uL (4.38-5.82); RED CELL DISTRIBUTION WIDTH 14.6 % (9.4-14.8)
[2018-07-26 05:28] LABS: CHLORIDE 106 mmol/L (98-107)
[2018-07-26 05:38] LABS: ALANINE AMINOTRANSFERASE 26 U/L (12-78); ALBUMIN 1.8 g/dL (3.4-5.0); ALKALINE PHOSPHATASE 95 U/L (45-117); ANION GAP 7 mmol/L (5-15); BILIRUBIN,TOTAL 0.6 mg/dL (0.2-1.0); CALCIUM 7.2 mg/dL (8.5-10.1); CREATININE 1.56 mg/dL (0.7-1.3); TOTAL PROTEIN 5.9 g/dL (6.4-8.2)
[2018-07-26 06:43] VITALS: BP 149/74
[2018-07-26] MEDS: INSULIN LISPRO 100 UNITS/ML, PEN SQ-INSULIN SCH ×4 (07:00→21:35)
[2018-07-26] MEDS: SODIUM CHLORIDE FLUSH 10ML SYR IVF SCH ×2 (08:22→21:36)
[2018-07-26] MEDS: GABAPENTIN 100 MG CAPSULE PO SCH ×3 (08:22→21:35)
[2018-07-26] MEDS: CALCITRIOL 0.25 MCG CAPSULE PO SCH (08:22)
[2018-07-26] MEDS: TAMSULOSIN 0.4 MG CAP.ER.24H PO SCH (08:22)
[2018-07-26] MEDS: POTASSIUM CHLORIDE 20 MEQ TAB.ER.PRT PO SCH ×2 (08:22→16:42)
[2018-07-26] MEDS: ASPIRIN 81 MG TABLET CHEW PO SCH (08:22)
[2018-07-26] MEDS: APIXABAN 5 MG TABLET PO SCH ×2 (08:22→21:35)
[2018-07-26 12:23] VITALS: BP 148/77
[2018-07-26] MEDS ORDERED: MAGNESIUM SULFATE PMX 4GM/100M 100 ML IV ONE (12:30)
[2018-07-26 19:34] VITALS: BP 118/63
[2018-07-26] MEDS: ATORVASTATIN 80 MG TABLET PO SCH (21:35)
[2018-07-26] MEDS: FAMOTIDINE 20 MG TABLET PO SCH (21:35)
[2018-07-27 02:04] VITALS: BP 122/72
[2018-07-27] MEDS: VANCOMYCIN 50 MG/ML ORAL SUSP PO SCH ×4 (03:54→22:55)
[2018-07-27] MEDS: CARVEDILOL 3.125 MG TABLET PO SCH ×2 (05:47→16:59)
[2018-07-27 06:16] LABS: BASOPHILS # (AUTO) 0.04 x10^3/uL (0-0.1); BASOPHILS % (AUTO) 1 % (0-1); EOSINOPHILS # (AUTO) 0.62 x10^3/uL (0-0.4); EOSINOPHILS % (AUTO) 9 % (1-7); LYMPHOCYTES # (AUTO) 1.07 x10^3/uL (1-3.4); LYMPHOCYTES % (AUTO) 15 % (22-44); MD NO; MEAN CORPUSCULAR HEMOGLOBIN 31.4 pg (27.5-34.5); MEAN CORPUSCULAR HGB CONC 34.1 g/dL (33.2-36.2); MEAN CORPUSCULAR VOLUME 91.9 fL (81-97); MEAN PLATELET VOLUME 7.4 fL (7.4-10.4); MONOCYTES # (AUTO) 0.78 x10^3/uL (0.2-0.8); MONOCYTES % (AUTO) 11 % (2-9); NEUTROPHILS % (AUTO) 65 % (42-75); PLATELET COUNT 202 x10^3/uL (130-400); RED BLOOD COUNT 2.96 x10^6/uL (4.38-5.82); RED CELL DISTRIBUTION WIDTH 14.4 % (9.4-14.8)
[2018-07-27 06:27] LABS: ALBUMIN 1.8 g/dL (3.4-5.0); ANION GAP 10 mmol/L (5-15); CALCIUM 7.8 mg/dL (8.5-10.1); CHLORIDE 102 mmol/L (98-107)
[2018-07-27 06:31] LABS: ALANINE AMINOTRANSFERASE 27 U/L (12-78); ALKALINE PHOSPHATASE 104 U/L (45-117); BILIRUBIN,TOTAL 0.5 mg/dL (0.2-1.0); CREATININE 1.49 mg/dL (0.7-1.3); TOTAL PROTEIN 6.2 g/dL (6.4-8.2)
[2018-07-27 06:50] VITALS: BP 139/74
[2018-07-27] MEDS: INSULIN LISPRO 100 UNITS/ML, PEN SQ-INSULIN SCH ×4 (07:00→20:22)
[2018-07-27] MEDS: POTASSIUM CHLORIDE 20 MEQ TAB.ER.PRT PO SCH ×2 (08:00→16:59)
[2018-07-27] MEDS: CALCITRIOL 0.25 MCG CAPSULE PO SCH (09:00)
[2018-07-27] MEDS: APIXABAN 5 MG TABLET PO SCH ×2 (09:00→20:21)
[2018-07-27] MEDS: TAMSULOSIN 0.4 MG CAP.ER.24H PO SCH (09:00)
[2018-07-27] MEDS: ASPIRIN 81 MG TABLET CHEW PO SCH (09:00)
[2018-07-27] MEDS: SODIUM CHLORIDE FLUSH 10ML SYR IVF SCH ×2 (09:00→20:22)
[2018-07-27] MEDS: GABAPENTIN 100 MG CAPSULE PO SCH ×3 (09:00→20:21)
[2018-07-27 09:56] LABS: OCCULT BLOOD POSITIVE (NEGATIVE)
[2018-07-27 12:38] VITALS: BP 147/72
[2018-07-27] MEDS: ATORVASTATIN 80 MG TABLET PO SCH (20:21)
[2018-07-27] MEDS: FAMOTIDINE 20 MG TABLET PO SCH (20:21)
[2018-07-27 20:35] VITALS: BP 121/67
[2018-07-28 00:12] VITALS: BP 130/73
[2018-07-28 05:59] LABS: BASOPHILS # (AUTO) 0.04 x10^3/uL (0-0.1); BASOPHILS % (AUTO) 1 % (0-1); EOSINOPHILS # (AUTO) 0.72 x10^3/uL (0-0.4); EOSINOPHILS % (AUTO) 11 % (1-7); LYMPHOCYTES # (AUTO) 1.26 x10^3/uL (1-3.4); LYMPHOCYTES % (AUTO) 19 % (22-44); MD NO; MEAN CORPUSCULAR HEMOGLOBIN 30.2 pg (27.5-34.5); MEAN CORPUSCULAR HGB CONC 32.8 g/dL (33.2-36.2); MEAN CORPUSCULAR VOLUME 92.1 fL (81-97); MEAN PLATELET VOLUME 7.1 fL (7.4-10.4); MONOCYTES # (AUTO) 0.71 x10^3/uL (0.2-0.8); MONOCYTES % (AUTO) 10 % (2-9); NEUTROPHILS # (AUTO) 4.09 x10^3/uL (1.8-6.8); NEUTROPHILS % (AUTO) 60 % (42-75); PLATELET COUNT 211 x10^3/uL (130-400); RED BLOOD COUNT 2.95 x10^6/uL (4.38-5.82); RED CELL DISTRIBUTION WIDTH 14.8 % (9.4-14.8)
[2018-07-28] MEDS: VANCOMYCIN 50 MG/ML ORAL SUSP PO SCH ×4 (06:03→21:59)
[2018-07-28] MEDS: CARVEDILOL 3.125 MG TABLET PO SCH ×2 (06:05→18:39)
[2018-07-28 06:18] LABS: ALBUMIN 1.9 g/dL (3.4-5.0); ANION GAP 9 mmol/L (5-15); CALCIUM 7.9 mg/dL (8.5-10.1); CHLORIDE 103 mmol/L (98-107)
[2018-07-28 06:19] LABS: CREATININE 1.47 mg/dL (0.7-1.3)
[2018-07-28 07:16] VITALS: BP 138/64
[2018-07-28] MEDS: INSULIN LISPRO 100 UNITS/ML, PEN SQ-INSULIN SCH ×4 (07:27→21:59)
[2018-07-28] MEDS: SODIUM CHLORIDE FLUSH 10ML SYR IVF SCH ×2 (09:00→21:59)
[2018-07-28] MEDS: GABAPENTIN 100 MG CAPSULE PO SCH ×3 (09:17→21:59)
[2018-07-28] MEDS: CALCITRIOL 0.25 MCG CAPSULE PO SCH (09:18)
[2018-07-28] MEDS: POTASSIUM CHLORIDE 20 MEQ TAB.ER.PRT PO SCH ×2 (09:18→18:39)
[2018-07-28] MEDS: TAMSULOSIN 0.4 MG CAP.ER.24H PO SCH (09:18)
[2018-07-28] MEDS: ERGOCALCIFEROL 50,000 UNIT CAPSULE PO SCH (09:18)
[2018-07-28] MEDS: PANTOPROZOLE 40MG TABLET PO SCH (09:25)
[2018-07-28 14:50] VITALS: BP 119/60
[2018-07-28 18:55] VITALS: BP 149/67
[2018-07-28] MEDS: ATORVASTATIN 80 MG TABLET PO SCH (21:59)
[2018-07-29 02:00] VITALS: BP 111/61
[2018-07-29] MEDS: CARVEDILOL 3.125 MG TABLET PO SCH ×2 (05:27→17:10)
[2018-07-29] MEDS: VANCOMYCIN 50 MG/ML ORAL SUSP PO SCH ×3 (05:27→17:09)
[2018-07-29 05:50] LABS: BASOPHILS # (AUTO) 0.07 x10^3/uL (0-0.1); BASOPHILS % (AUTO) 1 % (0-1); EOSINOPHILS # (AUTO) 0.81 x10^3/uL (0-0.4); EOSINOPHILS % (AUTO) 12 % (1-7); LYMPHOCYTES # (AUTO) 1.15 x10^3/uL (1-3.4); LYMPHOCYTES % (AUTO) 17 % (22-44); MD NO; MEAN CORPUSCULAR HEMOGLOBIN 31.1 pg (27.5-34.5); MEAN CORPUSCULAR VOLUME 91.5 fL (81-97); MEAN PLATELET VOLUME 7.2 fL (7.4-10.4); MONOCYTES # (AUTO) 0.54 x10^3/uL (0.2-0.8); MONOCYTES % (AUTO) 8 % (2-9); NEUTROPHILS # (AUTO) 4.41 x10^3/uL (1.8-6.8); NEUTROPHILS % (AUTO) 63 % (42-75); PLATELET COUNT 230 x10^3/uL (130-400); RED BLOOD COUNT 2.99 x10^6/uL (4.38-5.82)
[2018-07-29 06:01] LABS: ALBUMIN 2.1 g/dL (3.4-5.0); ANION GAP 8 mmol/L (5-15); CALCIUM 7.8 mg/dL (8.5-10.1); CHLORIDE 104 mmol/L (98-107)
[2018-07-29 06:06] LABS: ALANINE AMINOTRANSFERASE 37 U/L (12-78); ALKALINE PHOSPHATASE 88 U/L (45-117); BILIRUBIN,TOTAL 0.5 mg/dL (0.2-1.0); CREATININE 1.53 mg/dL (0.7-1.3); TOTAL PROTEIN 6.4 g/dL (6.4-8.2)
[2018-07-29] MEDS: INSULIN LISPRO 100 UNITS/ML, PEN SQ-INSULIN SCH ×4 (07:00→21:39)
[2018-07-29] MEDS: PANTOPROZOLE 40MG TABLET PO SCH ×2 (07:30→17:09)
[2018-07-29 07:38] VITALS: BP 113/62
[2018-07-29] MEDS: SODIUM CHLORIDE FLUSH 10ML SYR IVF SCH ×2 (09:00→21:39)
[2018-07-29] MEDS ORDERED: MIDAZOLAM 1 MG/ML, 5ML ONE (09:05)
[2018-07-29] MEDS ORDERED: FENTANYL PF 100 MCG/2ML ONE (09:05)
[2018-07-29] MEDS ORDERED: D5%-0.45% NACL 1,000 ML IV SCH (10:19)
[2018-07-29] MEDS: TAMSULOSIN 0.4 MG CAP.ER.24H PO SCH (11:56)
[2018-07-29] MEDS: SUCRALFATE 1 GM TABLET PO SCH ×3 (11:57→21:39)
[2018-07-29] MEDS: GABAPENTIN 100 MG CAPSULE PO SCH ×3 (11:57→21:39)
[2018-07-29] MEDS: CALCITRIOL 0.25 MCG CAPSULE PO SCH (11:57)
[2018-07-29 12:36] VITALS: BP 132/71
[2018-07-29 20:00] VITALS: BP 119/60
[2018-07-29] MEDS: ATORVASTATIN 80 MG TABLET PO SCH (21:39)
[2018-07-30] MEDS: VANCOMYCIN 50 MG/ML ORAL SUSP PO SCH ×4 (00:15→18:12)
[2018-07-30 01:04] VITALS: BP 104/59
[2018-07-30 06:07] LABS: BASOPHILS # (AUTO) 0.03 x10^3/uL (0-0.1); BASOPHILS % (AUTO) 0 % (0-1); EOSINOPHILS # (AUTO) 0.87 x10^3/uL (0-0.4); EOSINOPHILS % (AUTO) 12 % (1-7); LYMPHOCYTES # (AUTO) 1.16 x10^3/uL (1-3.4); LYMPHOCYTES % (AUTO) 16 % (22-44); MD NO; MEAN CORPUSCULAR HEMOGLOBIN 30.4 pg (27.5-34.5); MEAN CORPUSCULAR HGB CONC 32.9 g/dL (33.2-36.2); MEAN CORPUSCULAR VOLUME 92.4 fL (81-97); MEAN PLATELET VOLUME 7.2 fL (7.4-10.4); MONOCYTES # (AUTO) 0.54 x10^3/uL (0.2-0.8); MONOCYTES % (AUTO) 7 % (2-9); NEUTROPHILS # (AUTO) 4.77 x10^3/uL (1.8-6.8); NEUTROPHILS % (AUTO) 65 % (42-75); PLATELET COUNT 245 x10^3/uL (130-400); RED BLOOD COUNT 2.56 x10^6/uL (4.38-5.82); RED CELL DISTRIBUTION WIDTH 15.3 % (9.4-14.8)
[2018-07-30] MEDS: CARVEDILOL 3.125 MG TABLET PO SCH ×2 (06:12→18:12)
[2018-07-30 06:19] LABS: ANION GAP 7 mmol/L (5-15); CALCIUM 7.8 mg/dL (8.5-10.1); CHLORIDE 104 mmol/L (98-107); CREATININE 1.64 mg/dL (0.7-1.3)
[2018-07-30] MEDS: INSULIN LISPRO 100 UNITS/ML, PEN SQ-INSULIN SCH ×4 (08:39→21:18)
[2018-07-30] MEDS: GABAPENTIN 100 MG CAPSULE PO SCH ×3 (08:39→21:18)
[2018-07-30] MEDS: CALCITRIOL 0.25 MCG CAPSULE PO SCH (08:39)
[2018-07-30] MEDS: SUCRALFATE 1 GM TABLET PO SCH ×4 (08:39→21:18)
[2018-07-30] MEDS: TAMSULOSIN 0.4 MG CAP.ER.24H PO SCH (08:39)
[2018-07-30] MEDS: SODIUM CHLORIDE FLUSH 10ML SYR IVF SCH ×2 (08:40→21:18)
[2018-07-30] MEDS: PANTOPROZOLE 40MG TABLET PO SCH ×2 (08:40→18:12)
[2018-07-30 08:59] VITALS: BP 119/63
[2018-07-30 14:36] VITALS: BP 142/66
[2018-07-30 19:08] VITALS: BP 107/55
[2018-07-30] MEDS: ATORVASTATIN 80 MG TABLET PO SCH (21:18)
[2018-07-31] MEDS: VANCOMYCIN 50 MG/ML ORAL SUSP PO SCH ×4 (00:15→18:28)
[2018-07-31 00:17] VITALS: BP 151/61
[2018-07-31 05:02] LABS: BASOPHILS # (AUTO) 0.04 x10^3/uL (0-0.1); BASOPHILS % (AUTO) 1 % (0-1); EOSINOPHILS % (AUTO) 13 % (1-7); LYMPHOCYTES # (AUTO) 1.21 x10^3/uL (1-3.4); LYMPHOCYTES % (AUTO) 17 % (22-44); MD NO; MEAN CORPUSCULAR HEMOGLOBIN 31.2 pg (27.5-34.5); MEAN CORPUSCULAR HGB CONC 33.7 g/dL (33.2-36.2); MEAN CORPUSCULAR VOLUME 92.4 fL (81-97); MEAN PLATELET VOLUME 7.1 fL (7.4-10.4); MONOCYTES # (AUTO) 0.48 x10^3/uL (0.2-0.8); MONOCYTES % (AUTO) 7 % (2-9); NEUTROPHILS # (AUTO) 4.33 x10^3/uL (1.8-6.8); NEUTROPHILS % (AUTO) 62 % (42-75); PLATELET COUNT 250 x10^3/uL (130-400); RED BLOOD COUNT 2.81 x10^6/uL (4.38-5.82); RED CELL DISTRIBUTION WIDTH 15.2 % (9.4-14.8)
[2018-07-31 05:11] LABS: ALBUMIN 2.2 g/dL (3.4-5.0); ANION GAP 6 mmol/L (5-15); CALCIUM 7.7 mg/dL (8.5-10.1); CHLORIDE 104 mmol/L (98-107); CREATININE 1.51 mg/dL (0.7-1.3)
[2018-07-31] MEDS: CARVEDILOL 3.125 MG TABLET PO SCH ×2 (05:30→18:28)
[2018-07-31 07:00] VITALS: BP 110/68
[2018-07-31] MEDS: INSULIN LISPRO 100 UNITS/ML, PEN SQ-INSULIN SCH ×4 (09:50→21:10)
[2018-07-31] MEDS: PANTOPROZOLE 40MG TABLET PO SCH ×2 (09:50→16:33)
[2018-07-31] MEDS: TAMSULOSIN 0.4 MG CAP.ER.24H PO SCH (09:51)
[2018-07-31] MEDS: GABAPENTIN 100 MG CAPSULE PO SCH ×3 (09:51→21:10)
[2018-07-31] MEDS: SUCRALFATE 1 GM TABLET PO SCH ×4 (09:51→21:09)
[2018-07-31] MEDS: CALCITRIOL 0.25 MCG CAPSULE PO SCH (09:51)
[2018-07-31] MEDS: SODIUM CHLORIDE FLUSH 10ML SYR IVF SCH ×2 (09:52→21:10)
[2018-07-31 12:27] VITALS: BP 128/72
[2018-07-31 19:55] VITALS: BP 101/59
[2018-07-31] MEDS: ATORVASTATIN 80 MG TABLET PO SCH (21:10)
[2018-08-01] MEDS: VANCOMYCIN 50 MG/ML ORAL SUSP PO SCH ×4 (00:12→18:12)
[2018-08-01 03:01] VITALS: BP 107/57
[2018-08-01 05:47] LABS: BASOPHILS # (AUTO) 0.03 x10^3/uL (0-0.1); BASOPHILS % (AUTO) 1 % (0-1); EOSINOPHILS % (AUTO) 14 % (1-7); LYMPHOCYTES # (AUTO) 1.05 x10^3/uL (1-3.4); LYMPHOCYTES % (AUTO) 18 % (22-44); MD NO; MEAN CORPUSCULAR HEMOGLOBIN 30.2 pg (27.5-34.5); MEAN CORPUSCULAR HGB CONC 32.7 g/dL (33.2-36.2); MEAN CORPUSCULAR VOLUME 92.5 fL (81-97); MEAN PLATELET VOLUME 7.3 fL (7.4-10.4); MONOCYTES % (AUTO) 7 % (2-9); NEUTROPHILS % (AUTO) 61 % (42-75); PLATELET COUNT 262 x10^3/uL (130-400); RED CELL DISTRIBUTION WIDTH 15.9 % (9.4-14.8)
[2018-08-01 05:50] LABS: CHLORIDE 103 mmol/L (98-107)
[2018-08-01 05:55] LABS: ANION GAP 9 mmol/L (5-15); CALCIUM 7.8 mg/dL (8.5-10.1); CREATININE 1.38 mg/dL (0.7-1.3)
[2018-08-01] MEDS: CARVEDILOL 3.125 MG TABLET PO SCH ×2 (06:16→18:11)
[2018-08-01] MEDS: INSULIN LISPRO 100 UNITS/ML, PEN SQ-INSULIN SCH ×4 (07:00→20:29)
[2018-08-01] MEDS ORDERED: MAGNESIUM SULFATE PMX 2GM/50ML 50 ML IV ONE (07:30)
[2018-08-01 07:46] VITALS: BP 118/70
[2018-08-01] MEDS: TAMSULOSIN 0.4 MG CAP.ER.24H PO SCH (08:31)
[2018-08-01] MEDS: GABAPENTIN 100 MG CAPSULE PO SCH ×3 (08:31→20:28)
[2018-08-01] MEDS: SUCRALFATE 1 GM TABLET PO SCH ×4 (08:31→20:28)
[2018-08-01] MEDS: CALCITRIOL 0.25 MCG CAPSULE PO SCH (08:32)
[2018-08-01] MEDS: SODIUM CHLORIDE FLUSH 10ML SYR IVF SCH ×2 (08:32→20:29)
[2018-08-01] MEDS ORDERED: MAGNESIUM OXIDE 400 MG TABLET PO SCH (09:00)
[2018-08-01] MEDS: PANTOPROZOLE 40MG TABLET PO SCH ×2 (09:19→16:55)
[2018-08-01 14:00] VITALS: BP 119/63
[2018-08-01 20:02] VITALS: BP 116/51
[2018-08-01] MEDS: ATORVASTATIN 80 MG TABLET PO SCH (20:28)
[2018-08-02] MEDS: VANCOMYCIN 50 MG/ML ORAL SUSP PO SCH ×4 (00:30→17:10)
[2018-08-02 00:58] VITALS: BP 106/60
[2018-08-02] MEDS: CARVEDILOL 3.125 MG TABLET PO SCH ×2 (06:23→17:10)
[2018-08-02 06:41] VITALS: BP 120/64
[2018-08-02 07:33] LABS: BASOPHILS # (AUTO) 0.03 x10^3/uL (0-0.1); BASOPHILS % (AUTO) 1 % (0-1); EOSINOPHILS # (AUTO) 0.83 x10^3/uL (0-0.4); EOSINOPHILS % (AUTO) 17 % (1-7); LYMPHOCYTES # (AUTO) 0.98 x10^3/uL (1-3.4); LYMPHOCYTES % (AUTO) 20 % (22-44); MD NO; MEAN CORPUSCULAR HGB CONC 33.6 g/dL (33.2-36.2); MEAN CORPUSCULAR VOLUME 92.4 fL (81-97); MONOCYTES # (AUTO) 0.37 x10^3/uL (0.2-0.8); MONOCYTES % (AUTO) 7 % (2-9); NEUTROPHILS % (AUTO) 56 % (42-75); PLATELET COUNT 298 x10^3/uL (130-400); RED BLOOD COUNT 2.63 x10^6/uL (4.38-5.82); RED CELL DISTRIBUTION WIDTH 15.7 % (9.4-14.8)
[2018-08-02 07:40] LABS: ANION GAP 9 mmol/L (5-15); CALCIUM 7.8 mg/dL (8.5-10.1); CHLORIDE 104 mmol/L (98-107); CREATININE 1.55 mg/dL (0.7-1.3)
[2018-08-02] MEDS ORDERED: MAGNESIUM SULFATE PMX 2GM/50ML 50 ML IV ONE (08:00)
[2018-08-02] MEDS: PANTOPROZOLE 40MG TABLET PO SCH ×2 (08:47→17:10)
[2018-08-02] MEDS: TAMSULOSIN 0.4 MG CAP.ER.24H PO SCH (08:48)
[2018-08-02] MEDS: SUCRALFATE 1 GM TABLET PO SCH ×4 (08:48→21:34)
[2018-08-02] MEDS: CALCITRIOL 0.25 MCG CAPSULE PO SCH (08:48)
[2018-08-02] MEDS: GABAPENTIN 100 MG CAPSULE PO SCH ×3 (08:48→21:34)
[2018-08-02] MEDS: MAGNESIUM OXIDE 400 MG TABLET PO SCH (08:49)
[2018-08-02] MEDS: INSULIN LISPRO 100 UNITS/ML, PEN SQ-INSULIN SCH ×4 (08:50→22:20)
[2018-08-02] MEDS: SODIUM CHLORIDE FLUSH 10ML SYR IVF SCH ×2 (08:51→21:35)
[2018-08-02 14:01] VITALS: BP 122/66
[2018-08-02 20:10] VITALS: BP 105/62
[2018-08-02] MEDS: ATORVASTATIN 80 MG TABLET PO SCH (21:34)
[2018-08-03] MEDS: VANCOMYCIN 50 MG/ML ORAL SUSP PO SCH ×2 (00:04→05:39)
[2018-08-03 03:24] VITALS: BP 110/64
[2018-08-03] MEDS: CARVEDILOL 3.125 MG TABLET PO SCH ×2 (05:39→17:14)
[2018-08-03] MEDS: INSULIN LISPRO 100 UNITS/ML, PEN SQ-INSULIN SCH ×4 (07:00→23:09)
[2018-08-03] MEDS ORDERED: LOPERAMIDE 1 MG/5 ML, 10ML UDC PO PRN (07:30)
[2018-08-03 07:38] VITALS: BP 113/62
[2018-08-03 08:47] LABS: ANION GAP 10 mmol/L (5-15); CALCIUM 7.7 mg/dL (8.5-10.1); CHLORIDE 102 mmol/L (98-107); CREATININE 1.39 mg/dL (0.7-1.3)
[2018-08-03] MEDS: SODIUM CHLORIDE FLUSH 10ML SYR IVF SCH ×2 (09:00→20:21)
[2018-08-03] MEDS: CALCITRIOL 0.25 MCG CAPSULE PO SCH (10:19)
[2018-08-03] MEDS: SUCRALFATE 1 GM TABLET PO SCH ×4 (10:19→20:20)
[2018-08-03] MEDS: PANTOPROZOLE 40MG TABLET PO SCH ×2 (10:19→17:16)
[2018-08-03] MEDS: GABAPENTIN 100 MG CAPSULE PO SCH ×3 (10:19→20:20)
[2018-08-03] MEDS: LOPERAMIDE 1 MG/5 ML, 10ML UDC PO SCH (10:20)
[2018-08-03] MEDS: TAMSULOSIN 0.4 MG CAP.ER.24H PO SCH (10:20)
[2018-08-03] MEDS: MAGNESIUM OXIDE 400 MG TABLET PO SCH (10:20)
[2018-08-03 12:19] LABS: CRYPTOSPORIDIUM ANTIGEN Negative (Negative)
[2018-08-03 13:03] VITALS: BP 119/70
[2018-08-03 17:10] VITALS: BP 115/67
[2018-08-03 20:08] VITALS: BP 96/56
[2018-08-03] MEDS: ATORVASTATIN 80 MG TABLET PO SCH (20:20)
[2018-08-03] MEDS ORDERED: INSULIN GLARGINE 100 UNITS/ML, PEN SQ-INSULIN SCH (21:00)
[2018-08-04 01:10] VITALS: BP 95/58
[2018-08-04 05:55] VITALS: BP 121/58
[2018-08-04] MEDS: CARVEDILOL 3.125 MG TABLET PO SCH ×2 (05:55→17:16)
[2018-08-04 06:42] LABS: ANION GAP 8 mmol/L (5-15); CALCIUM 8.1 mg/dL (8.5-10.1); CHLORIDE 102 mmol/L (98-107)
[2018-08-04 06:43] LABS: BASOPHILS # (AUTO) 0.02 x10^3/uL (0-0.1); BASOPHILS % (AUTO) 1 % (0-1); CREATININE 1.44 mg/dL (0.7-1.3); EOSINOPHILS # (AUTO) 0.69 x10^3/uL (0-0.4); EOSINOPHILS % (AUTO) 13 % (1-7); LYMPHOCYTES # (AUTO) 1.16 x10^3/uL (1-3.4); LYMPHOCYTES % (AUTO) 22 % (22-44); MD NO; MEAN CORPUSCULAR HEMOGLOBIN 32.2 pg (27.5-34.5); MEAN CORPUSCULAR HGB CONC 34.8 g/dL (33.2-36.2); MEAN CORPUSCULAR VOLUME 92.6 fL (81-97); MEAN PLATELET VOLUME 7.2 fL (7.4-10.4); MONOCYTES # (AUTO) 0.37 x10^3/uL (0.2-0.8); MONOCYTES % (AUTO) 7 % (2-9); NEUTROPHILS # (AUTO) 3.11 x10^3/uL (1.8-6.8); NEUTROPHILS % (AUTO) 58 % (42-75); PLATELET COUNT 329 x10^3/uL (130-400); RED BLOOD COUNT 2.74 x10^6/uL (4.38-5.82); RED CELL DISTRIBUTION WIDTH 16.5 % (9.4-14.8)
[2018-08-04 07:25] VITALS: BP 137/73
[2018-08-04] MEDS: PANTOPROZOLE 40MG TABLET PO SCH ×2 (08:56→17:16)
[2018-08-04] MEDS: SUCRALFATE 1 GM TABLET PO SCH ×3 (08:57→17:16)
[2018-08-04] MEDS: GABAPENTIN 100 MG CAPSULE PO SCH ×2 (08:57→17:16)
[2018-08-04] MEDS: ERGOCALCIFEROL 50,000 UNIT CAPSULE PO SCH (08:57)
[2018-08-04] MEDS: CALCITRIOL 0.25 MCG CAPSULE PO SCH (08:57)
[2018-08-04] MEDS: TAMSULOSIN 0.4 MG CAP.ER.24H PO SCH (08:57)
[2018-08-04] MEDS: MAGNESIUM OXIDE 400 MG TABLET PO SCH (08:57)
[2018-08-04] MEDS: LOPERAMIDE 1 MG/5 ML, 10ML UDC PO SCH (08:57)
[2018-08-04] MEDS: SODIUM CHLORIDE FLUSH 10ML SYR IVF SCH (08:58)
[2018-08-04] MEDS: INSULIN LISPRO 100 UNITS/ML, PEN SQ-INSULIN SCH ×3 (08:58→17:17)
[2018-08-04 12:45] VITALS: BP 132/73
[2018-08-04] MEDS ORDERED: TAMS-11 PO (13:27)
[2018-08-04] MEDS ORDERED: CALC0.25 PO (13:27)
[2018-08-04] MEDS ORDERED: LOPE1LIQ31 PO (13:27)
[2018-08-04] MEDS ORDERED: SUCR1TAB33 PO (13:27)
[2018-08-04] MEDS ORDERED: PANT40TA5 PO (13:27)
== END 2018-08-04 17:56 | DRG 377 ==
LOC: ED 07:49 → EDIP 08:06 → 4EST 09:12
PROVIDERS: ADMIT Family Medicine; ATTEND Family Medicine
PROC: 0DB68ZX Excision of Stomach, Via Natural or Artificial Opening Endoscopic, Diagnostic (ICD-10-PCS; principal; 2018-07-29 09:30)
DX: K25.4 Chronic or unspecified gastric ulcer with hemorrhage (principal); E43 Unspecified severe protein-calorie malnutrition; J96.90 Respiratory failure, unspecified, unspecified whether with hypoxia or hypercapnia; K85.90 Acute pancreatitis without necrosis or infection, unspecified; N17.9 Acute kidney failure, unspecified; E87.1 Hypo-osmolality and hyponatremia; I13.0 Hypertensive heart and chronic kidney disease with heart failure and stage 1 through stage 4 chronic kidney disease, or unspecified chronic kidney disease; A04.72 Enterocolitis due to Clostridium difficile, not specified as recurrent; E87.2 Acidosis; T79.6XXA Traumatic ischemia of muscle, initial encounter; K26.5 Chronic or unspecified duodenal ulcer with perforation; E11.649 Type 2 diabetes mellitus with hypoglycemia without coma; N18.9 Chronic kidney disease, unspecified; E11.22 Type 2 diabetes mellitus with diabetic chronic kidney disease; I48.0 Paroxysmal atrial fibrillation; D50.9 Iron deficiency anemia, unspecified; E11.40 Type 2 diabetes mellitus with diabetic neuropathy, unspecified; Z68.28 Body mass index [BMI] 28.0-28.9, adult; E78.00 Pure hypercholesterolemia, unspecified; E78.5 Hyperlipidemia, unspecified; E83.39 Other disorders of phosphorus metabolism; E83.42 Hypomagnesemia; I50.9 Heart failure, unspecified; K21.9 Gastro-esophageal reflux disease without esophagitis; K44.9 Diaphragmatic hernia without obstruction or gangrene; L89.159 Pressure ulcer of sacral region, unspecified stage; N25.0 Renal osteodystrophy; N40.1 Benign prostatic hyperplasia with lower urinary tract symptoms; R33.8 Other retention of urine; W01.0XXA Fall on same level from slipping, tripping and stumbling without subsequent striking against object, initial encounter; Z23 Encounter for immunization; Z82.49 Family history of ischemic heart disease and other diseases of the circulatory system; Z87.11 Personal history of peptic ulcer disease; Y93.89 Activity, other specified; Y92.89 Other specified places as the place of occurrence of the external cause; I25.2 Old myocardial infarction; Z87.891 Personal history of nicotine dependence; Z88.8 Allergy status to other drugs, medicaments and biological substances; Z79.899 Other long term (current) drug therapy
CPT/HCPCS: 36415; 87046; 99291; J3370; J7042; 70450; 71045; 76770; 80048; 80053; 80069; 81001; 82272; 82306; 82310; 82330; 82436; 82550; 82570; 82728; 82947; 82962; 83036; 83540; 83550; 83605; 83690; 83735; 83880; 83935; 83970; 84100; 84133; 84156; 84300; 84484; 84550; 85025; 85610; 85730; 86063; 87040; 87205; 87324; 87328; 87329; 88305; 90656; 93005; G0378; J1756; J2250; J3010; Q0162; J1815; J3475; J7030

== ENCOUNTER 2018-08-15 11:25 | Inpatient (IN) | payer OTHER, MEDICARE ==
[~2018-08-15] VITALS: Ht 170.2 cm; Wt 67.1 kg
[~2018-08-15 11:25] MED LIST changes: +ASPI-496 PO; +CALC0.25 PO; +LEVO500T8 PO; +LOPE1LIQ31 PO; +PANT40TA5 PO; +SUCR1TAB33 PO; +TAMS-11 PO
[2018-08-15] MEDS ORDERED: SODIUM CHLORIDE FLUSH 10ML SYR IVF ONE (11:30)
[2018-08-15 11:52] LABS: BASOPHILS # (AUTO) 0.03 x10^3/uL (0-0.1); BASOPHILS % (AUTO) 0 % (0-1); EOSINOPHILS # (AUTO) 0.12 x10^3/uL (0-0.4); EOSINOPHILS % (AUTO) 1 % (1-7); LYMPHOCYTES # (AUTO) 1.02 x10^3/uL (1-3.4); LYMPHOCYTES % (AUTO) 8 % (22-44); MD NO; MEAN CORPUSCULAR HEMOGLOBIN 30.9 pg (27.5-34.5); MEAN CORPUSCULAR HGB CONC 33.2 g/dL (33.2-36.2); MEAN CORPUSCULAR VOLUME 93.1 fL (81-97); MEAN PLATELET VOLUME 6.8 fL (7.4-10.4); MONOCYTES # (AUTO) 0.49 x10^3/uL (0.2-0.8); MONOCYTES % (AUTO) 4 % (2-9); NEUTROPHILS # (AUTO) 11.13 x10^3/uL (1.8-6.8); NEUTROPHILS % (AUTO) 87 % (42-75); PLATELET COUNT 509 x10^3/uL (130-400); RED BLOOD COUNT 3.45 x10^6/uL (4.38-5.82); RED CELL DISTRIBUTION WIDTH 16.6 % (9.4-14.8)
[2018-08-15] MEDS ORDERED: PLEASE ENTER HEIGHT AND WEIGHT MC SCH (12:00)
[2018-08-15 12:01] LABS: PROTHROMBIN TIME 10.6 Seconds (9.6-11.5)
[2018-08-15 12:04] LABS: ALANINE AMINOTRANSFERASE 38 U/L (12-78); ALBUMIN 2.5 g/dL (3.4-5.0); ANION GAP 11 mmol/L (5-15); CALCIUM 8.8 mg/dL (8.5-10.1); CHLORIDE 95 mmol/L (98-107); CREATININE 1.39 mg/dL (0.7-1.3)
[2018-08-15 12:05] LABS: ALKALINE PHOSPHATASE 130 U/L (45-117); BILIRUBIN,TOTAL 0.6 mg/dL (0.2-1.0); TOTAL PROTEIN 8.5 g/dL (6.4-8.2)
--- NOTE | 2018-08-15 12:05 | NUR ---
NOMAN RN: PT TAKEN TO CT TOLERATED WELL. VSS. FAMILY AT BEDSIDE. RAD COMPLETED
--- NOTE | 2018-08-15 12:25 | NUR ---
PT IS APHASIC WITH GENERALIZED WEAKNESS TO ALL EXTREMITIES. PT SEEMS TO BE ATTENTIVE WITH PRACTICIONER ON L SIDE OF BED ONLY. DID FOLLOW COMMAND TO CLOSE MOUTH FOR TEMP, BUT DOES NOT OBEY OTHER COMMANDS. PER STAFF AT [facility] AT 0730. PER FAMILY AT NOW, PT NORMALLY INTERACTIVE, AND WAS YESTERDAY PER . VSS. PT IS AWAKE AND LOOKS AROUND, WITHDRAWS MINIMALLY TO PAINFUL STIMULI, APHASIC
--- NOTE | 2018-08-15 12:36 | NUR ---
DR TAN TO BS
[2018-08-15] MEDS ORDERED: OMEP40CA6 PO (12:43)
--- NOTE | 2018-08-15 13:00 | NUR ---
DR GUERIN TO BS. VSS. REPORT TO MANUELA VARGAS
--- NOTE | 2018-08-15 13:12 | NUR ---
RECIEVED BEDSIDE REPORT FROM ALICIA MORENO. ALL QUESTIONS ANSWERED. PT TRANSFERED FROM TRAUMA ROOM 4 TO ED ROOM 14. ASSUMING CARE OF THIS PT. FAMILY AND SPOUSE AT BEDSIDE. PT IS RESTING ON GURNEY. PILLOWS USED FOR POSITIONING AND PROPING OF RIGHT ARM AND UNDER RIGHT HIP. PT CONNECTED TO ALL MONITORS. PT TURNS HEAD TO THE LEFT. AND NODS NO TO "PAIN" WHEN QUESTIONED. PT NEGLECTS RIGHT SIDE OF FACE AND BODY. PT HAS RIGHT SIDED WEAKNESS OF RIGHT ARM AND RIGHT LEG. PT IS 99% SPO2% ON ROOM AIR, RR IS 19. NADN. SUCTION SET UP NEAR BEDSIDE. ALL SAFETY MEASURES ARE IN PLACE.
--- NOTE | 2018-08-15 13:49 | NUR ---
PROVIDED REPORT TO ALICIA ZELAYA. ALL QUESTIONS ANSWERED. PT READY TO TRANSFER TO FLOOR FROM ED.
[2018-08-15] MEDS ORDERED: DEXTROSE 4 GM TAB.CHEW PO PRN (14:30)
[2018-08-15] MEDS ORDERED: GLUCAGON 1 MG IM PRN (14:30)
[2018-08-15] MEDS ORDERED: DEXTROSE 50%, 50ML SYRINGE IVPush PRN (14:30)
[2018-08-15] MEDS ORDERED: ONDANSETRON 2MG/ML, 2ML IVPush PRN (14:30)
[2018-08-15] MEDS ORDERED: BISACODYL 10 MG SUPP PR PRN (14:30)
[2018-08-15] MEDS ORDERED: POLYETHYLENE GLYCOL 17 GM PACKET PO PRN (14:30)
[2018-08-15] MEDS ORDERED: DOCUSATE 100 MG CAPSULE PO PRN (14:30)
[2018-08-15] MEDS ORDERED: ACETAMINOPHEN 325 MG TABLET PO PRN (14:30)
[2018-08-15] MEDS ORDERED: ONDANSETRON 4 MG TABLET PO PRN (14:30)
[2018-08-15 15:33] LABS: MICROSCOPIC AUTO
[2018-08-15 15:36] LABS: CULTURE INDICATED? YES
[2018-08-15] MEDS ORDERED: LABETALOL 5MG/ML, 20ML IVPush PRN (16:00)
[2018-08-15] MEDS: INSULIN LISPRO 100 UNITS/ML, PEN SQ-INSULIN SCH ×2 (16:00→21:21)
[2018-08-15] MEDS: GABAPENTIN 100 MG CAPSULE PO SCH ×2 (16:00→21:21)
[2018-08-15] MEDS ORDERED: hydrALAzine 20 MG/ML, 1ML IVPush PRN (16:00)
[2018-08-15] MEDS ORDERED: LOPERAMIDE 2 MG CAPSULE PO ONE (16:00)
[2018-08-15] MEDS: FERROUS SULFATE 325 MG TABLET PO SCH (16:08)
[2018-08-15] MEDS: CARVEDILOL 3.125 MG TABLET PO SCH (17:47)
[2018-08-15 20:15] VITALS: BP 132/76
[2018-08-15] MEDS ORDERED: OMEPRAZOLE 20 MG CAPSULE.DR PO SCH (21:00)
[2018-08-15] MEDS: SODIUM CHLORIDE FLUSH 10ML SYR IVF SCH (21:21)
[2018-08-15] MEDS: AMIODARONE 200 MG TABLET PO SCH (21:21)
[2018-08-15] MEDS: ATORVASTATIN 80 MG TABLET PO SCH (21:21)
[2018-08-16 00:28] VITALS: BP 137/70
[2018-08-16 02:23] LABS: CLOSTRIDIUM DIFFICILE TOXIN POSITIVE (Negative)
[2018-08-16 02:25] LABS: CLOSTRIDIUM DIFFICILE ANTIGEN POSITIVE
[2018-08-16] MEDS: CARVEDILOL 3.125 MG TABLET PO SCH ×2 (04:32→18:00)
[2018-08-16 06:05] LABS: BASOPHILS # (AUTO) 0.03 x10^3/uL (0-0.1); BASOPHILS % (AUTO) 0 % (0-1); EOSINOPHILS # (AUTO) 0.01 x10^3/uL (0-0.4); EOSINOPHILS % (AUTO) 0 % (1-7); LYMPHOCYTES % (AUTO) 7 % (22-44); MD NO; MEAN CORPUSCULAR HEMOGLOBIN 30.4 pg (27.5-34.5); MEAN CORPUSCULAR HGB CONC 33.1 g/dL (33.2-36.2); MEAN CORPUSCULAR VOLUME 91.6 fL (81-97); MEAN PLATELET VOLUME 6.8 fL (7.4-10.4); MONOCYTES # (AUTO) 0.94 x10^3/uL (0.2-0.8); MONOCYTES % (AUTO) 7 % (2-9); NEUTROPHILS # (AUTO) 12.51 x10^3/uL (1.8-6.8); NEUTROPHILS % (AUTO) 86 % (42-75); PLATELET COUNT 528 x10^3/uL (130-400); RED BLOOD COUNT 3.29 x10^6/uL (4.38-5.82); RED CELL DISTRIBUTION WIDTH 16.7 % (9.4-14.8)
[2018-08-16 06:17] LABS: CHLORIDE 99 mmol/L (98-107)
[2018-08-16 06:25] LABS: ALANINE AMINOTRANSFERASE 30 U/L (12-78); ALBUMIN 2.2 g/dL (3.4-5.0); ALKALINE PHOSPHATASE 118 U/L (45-117); ANION GAP 13 mmol/L (5-15); BILIRUBIN,TOTAL 0.6 mg/dL (0.2-1.0); CHOL/HDL RATIO 3.3; CHOLESTEROL, TOTAL 113 mg/dL (140-239); CREATININE 1.48 mg/dL (0.7-1.3); HDL CHOL % 30 % (26-37); HDL CHOLESTEROL (DIRECT) 34 mg/dL (40-60); LDL CHOLESTEROL,CALCULATED 60 mg/dL (54-169); LDL/HDL RATIO 1.8 (0.5-3.0); TOTAL PROTEIN 7.6 g/dL (6.4-8.2); TRIGLYCERIDES 93 mg/dL (50-200); VLDL CHOLESTEROL 19 mg/dL (0-25)
[2018-08-16] MEDS: INSULIN LISPRO 100 UNITS/ML, PEN SQ-INSULIN SCH ×4 (07:00→21:07)
[2018-08-16 07:22] VITALS: BP 130/65
[2018-08-16] MEDS ORDERED: TAMSULOSIN 0.4 MG CAP.ER.24H PO SCH (09:00)
[2018-08-16] MEDS ORDERED: ASPIRIN 81 MG TABLET CHEW PO/NG SCH (09:00)
[2018-08-16] MEDS ORDERED: D5%-0.45% NACL 1,000 ML IV SCH (09:00)
[2018-08-16] MEDS ORDERED: VANCOMYCIN 50 MG/ML ORAL SUSP PO SCH (09:00)
[2018-08-16] MEDS: SODIUM CHLORIDE FLUSH 10ML SYR IVF SCH ×2 (09:00→21:08)
[2018-08-16] MEDS: CALCITRIOL 0.25 MCG CAPSULE PO SCH (09:00)
[2018-08-16] MEDS: GABAPENTIN 100 MG CAPSULE PO SCH ×3 (11:15→21:07)
[2018-08-16] MEDS: FERROUS SULFATE 325 MG TABLET PO SCH ×3 (11:15→18:38)
[2018-08-16] MEDS: OMEPRAZOLE 20 MG CAPSULE.DR PO SCH (11:15)
[2018-08-16] MEDS: AMIODARONE 200 MG TABLET PO SCH ×2 (11:16→21:08)
[2018-08-16] MEDS ORDERED: PROPOFOL 10 MG/ML, 100ML IV ONE (11:33)
[2018-08-16] MEDS ORDERED: MIDAZOLAM 1 MG/ML, 5ML ONE (11:33)
[2018-08-16] MEDS ORDERED: PROPOFOL 10 MG/ML, 20ML ONE (11:33)
[2018-08-16] MEDS ORDERED: ETOMIDATE 40 MG/20 ML ONE (11:33)
[2018-08-16 12:43] VITALS: BP 126/64
[2018-08-16] MEDS: ASPIRIN 325 MG TABLET NG SCH (12:47)
[2018-08-16] MEDS: D5%-0.9% NACL 1,000 ML IV SCH ×2 (13:00→23:00)
[2018-08-16] MEDS ORDERED: LABETALOL 5MG/ML, 20ML IVPush PRN (14:00)
[2018-08-16] MEDS ORDERED: hydrALAzine 20 MG/ML, 1ML IVPush PRN (16:00)
[2018-08-16] MEDS ORDERED: PROPOFOL 10 MG/ML, 20ML IVPush ONE (16:30)
[2018-08-16] MEDS ORDERED: ETOMIDATE 20 MG/10 ML IVPush ONE (16:30)
[2018-08-16] MEDS ORDERED: MIDAZOLAM 1 MG/ML, 5ML IVPush ONE (16:30)
[2018-08-16] MEDS ORDERED: PHARMACY MAY ADJ FOR RENAL FX MC SCH (17:00)
[2018-08-16] MEDS ORDERED: MAGNESIUM SULFATE PMX 2GM/50ML 50 ML IV ONE (17:00)
[2018-08-16] MEDS ORDERED: NOREPINEPHRINE 1 MG/ML, 4ML ONE (17:07)
[2018-08-16] MEDS: VANCOMYCIN 50 MG/ML ORAL SUSP PO/NG SCH (18:25)
[2018-08-16] MEDS: SODIUM CHLORIDE 0.9% 1,000 ML IV SCH (18:25)
[2018-08-16] MEDS: PROPOFOL 100 ML IV PRN ×2 (18:29→18:36)
[2018-08-16] MEDS: PIPERACILLIN/TAZO/PMX 4.5GM 100 ML IV SCH ×2 (18:30→18:38)
[2018-08-16] MEDS: ATORVASTATIN 80 MG TABLET PO SCH (21:07)
[2018-08-17] MEDS: VANCOMYCIN 50 MG/ML ORAL SUSP PO/NG SCH ×5 (00:31→21:01)
[2018-08-17 04:00] VITALS: BP 108/38
[2018-08-17 04:56] LABS: MEAN CORPUSCULAR HEMOGLOBIN 30.7 pg (27.5-34.5); MEAN CORPUSCULAR HGB CONC 33.2 g/dL (33.2-36.2); MEAN CORPUSCULAR VOLUME 92.4 fL (81-97); MEAN PLATELET VOLUME 6.6 fL (7.4-10.4); PLATELET COUNT 496 x10^3/uL (130-400); RED BLOOD COUNT 2.81 x10^6/uL (4.38-5.82); RED CELL DISTRIBUTION WIDTH 17.5 % (9.4-14.8)
[2018-08-17 04:59] LABS: ALBUMIN 1.7 g/dL (3.4-5.0); ANION GAP 14 mmol/L (5-15); CALCIUM 7.1 mg/dL (8.5-10.1); CHLORIDE 103 mmol/L (98-107)
[2018-08-17 05:05] LABS: ALANINE AMINOTRANSFERASE 21 U/L (12-78); ALKALINE PHOSPHATASE 99 U/L (45-117); BILIRUBIN,TOTAL 0.6 mg/dL (0.2-1.0); CREATININE 1.56 mg/dL (0.7-1.3); TOTAL PROTEIN 6.6 g/dL (6.4-8.2)
[2018-08-17 05:37] LABS: BASOPHILS # (AUTO) 0.08 x10^3/uL (0-0.1); BASOPHILS % (AUTO) 1 % (0-1); EOSINOPHILS # (AUTO) 0.29 x10^3/uL (0-0.4); EOSINOPHILS % (AUTO) 2 % (1-7); LYMPHOCYTES # (AUTO) 1.25 x10^3/uL (1-3.4); LYMPHOCYTES % (AUTO) 8 % (22-44); MD SCAN; MONOCYTES # (AUTO) 1.23 x10^3/uL (0.2-0.8); MONOCYTES % (AUTO) 8 % (2-9); NEUTROPHILS # (AUTO) 12.51 x10^3/uL (1.8-6.8); NEUTROPHILS % (AUTO) 82 % (42-75)
[2018-08-17] MEDS: CARVEDILOL 3.125 MG TABLET PO SCH (06:00)
[2018-08-17] MEDS: PIPERACILLIN/TAZO/PMX 4.5GM 100 ML IV SCH ×2 (06:41→14:41)
[2018-08-17] MEDS: INSULIN LISPRO 100 UNITS/ML, PEN SQ-INSULIN SCH ×4 (07:54→23:15)
[2018-08-17] MEDS: OMEPRAZOLE 20 MG CAPSULE.DR PO SCH (07:58)
[2018-08-17] MEDS: CALCITRIOL 0.25 MCG CAPSULE PO SCH (07:59)
[2018-08-17] MEDS: AMIODARONE 200 MG TABLET PO SCH ×2 (08:00→21:01)
[2018-08-17] MEDS: FERROUS SULFATE 325 MG TABLET PO SCH (08:00)
[2018-08-17] MEDS: GABAPENTIN 100 MG CAPSULE PO SCH (08:00)
[2018-08-17] MEDS: SODIUM CHLORIDE FLUSH 10ML SYR IVF SCH ×2 (08:01→23:15)
[2018-08-17] MEDS: D5%-0.9% NACL 1,000 ML IV SCH (08:01)
[2018-08-17] MEDS: ASPIRIN 325 MG TABLET NG SCH (08:04)
[2018-08-17] MEDS: PANTOPRAZOLE 40 MG IV IVPush SCH (09:16)
[2018-08-17] MEDS: NOREPINEPHRINE 8 MG in SODIUM CHLORIDE 0.9% 242 ML IV PRN ×3 (09:47→17:36)
[2018-08-17] MEDS: SODIUM CHLORIDE 0.9% 1,000 ML IV SCH (14:41)
[2018-08-17] MEDS: LINEZOLID PMX 600MG/300ML 300 ML IV SCH (14:41)
[2018-08-17 18:55] LABS: CULTURE INDICATED? YES; MICROSCOPIC INDICATED
[2018-08-17] MEDS: MEROPENEM 1 GM in SODIUM CHLORIDE 0.9% 100 ML IV SCH (19:47)
[2018-08-18] MEDS: NOREPINEPHRINE 8 MG in SODIUM CHLORIDE 0.9% 242 ML IV PRN ×3 (00:57→12:53)
[2018-08-18] MEDS: LINEZOLID PMX 600MG/300ML 300 ML IV SCH ×2 (02:08→14:42)
[2018-08-18] MEDS: SODIUM CHLORIDE 0.9% 1,000 ML IV SCH ×3 (03:17→18:19)
[2018-08-18] MEDS: VANCOMYCIN 50 MG/ML ORAL SUSP PO/NG SCH ×4 (03:18→21:09)
[2018-08-18] MEDS: MEROPENEM 1 GM in SODIUM CHLORIDE 0.9% 100 ML IV SCH ×3 (03:19→19:33)
[2018-08-18 04:00] VITALS: BP 151/54
[2018-08-18 04:44] LABS: BASOPHILS # (AUTO) 0.04 x10^3/uL (0-0.1); BASOPHILS % (AUTO) 0 % (0-1); EOSINOPHILS # (AUTO) 0.25 x10^3/uL (0-0.4); EOSINOPHILS % (AUTO) 2 % (1-7); LYMPHOCYTES # (AUTO) 0.71 x10^3/uL (1-3.4); LYMPHOCYTES % (AUTO) 5 % (22-44); MD NO; MEAN CORPUSCULAR HEMOGLOBIN 30.7 pg (27.5-34.5); MEAN CORPUSCULAR HGB CONC 33.1 g/dL (33.2-36.2); MEAN CORPUSCULAR VOLUME 92.8 fL (81-97); MEAN PLATELET VOLUME 6.5 fL (7.4-10.4); MONOCYTES # (AUTO) 0.81 x10^3/uL (0.2-0.8); MONOCYTES % (AUTO) 6 % (2-9); NEUTROPHILS # (AUTO) 12.57 x10^3/uL (1.8-6.8); NEUTROPHILS % (AUTO) 87 % (42-75); PLATELET COUNT 485 x10^3/uL (130-400); RED BLOOD COUNT 2.81 x10^6/uL (4.38-5.82); RED CELL DISTRIBUTION WIDTH 17.6 % (9.4-14.8)
[2018-08-18 04:56] LABS: ALBUMIN 1.6 g/dL (3.4-5.0); ANION GAP 13 mmol/L (5-15); CALCIUM 6.8 mg/dL (8.5-10.1); CHLORIDE 105 mmol/L (98-107)
[2018-08-18 04:59] LABS: ALANINE AMINOTRANSFERASE 21 U/L (12-78); ALKALINE PHOSPHATASE 102 U/L (45-117); BILIRUBIN,TOTAL 0.5 mg/dL (0.2-1.0); CREATININE 1.23 mg/dL (0.7-1.3); TOTAL PROTEIN 6.2 g/dL (6.4-8.2)
[2018-08-18] MEDS: INSULIN LISPRO 100 UNITS/ML, PEN SQ-INSULIN SCH ×4 (05:24→23:07)
[2018-08-18] MEDS ORDERED: POTASSIUM CHLORIDE 20 MEQ in SODIUM CHLORIDE 0.9% 250 ML IV ONE (09:00)
[2018-08-18] MEDS: AMIODARONE 200 MG TABLET PO SCH ×2 (09:19→21:09)
[2018-08-18] MEDS: SODIUM CHLORIDE FLUSH 10ML SYR IVF SCH ×2 (09:19→21:08)
[2018-08-18] MEDS: PANTOPRAZOLE 40 MG IV IVPush SCH (09:20)
[2018-08-18] MEDS: ASPIRIN 325 MG TABLET NG SCH (09:25)
[2018-08-19] MEDS: LINEZOLID PMX 600MG/300ML 300 ML IV SCH ×2 (02:01→14:51)
[2018-08-19] MEDS: MEROPENEM 1 GM in SODIUM CHLORIDE 0.9% 100 ML IV SCH ×2 (03:44→12:00)
[2018-08-19] MEDS: VANCOMYCIN 50 MG/ML ORAL SUSP PO/NG SCH ×4 (03:44→21:04)
[2018-08-19 04:07] VITALS: BP 129/45
[2018-08-19] MEDS: INSULIN LISPRO 100 UNITS/ML, PEN SQ-INSULIN SCH ×4 (05:13→22:54)
[2018-08-19 05:46] LABS: BASOPHILS # (AUTO) 0.03 x10^3/uL (0-0.1); BASOPHILS % (AUTO) 0 % (0-1); EOSINOPHILS % (AUTO) 1 % (1-7); LYMPHOCYTES # (AUTO) 0.75 x10^3/uL (1-3.4); LYMPHOCYTES % (AUTO) 7 % (22-44); MD NO; MEAN CORPUSCULAR HEMOGLOBIN 31.1 pg (27.5-34.5); MEAN CORPUSCULAR VOLUME 91.5 fL (81-97); MEAN PLATELET VOLUME 6.6 fL (7.4-10.4); MONOCYTES # (AUTO) 0.55 x10^3/uL (0.2-0.8); MONOCYTES % (AUTO) 5 % (2-9); NEUTROPHILS # (AUTO) 10.09 x10^3/uL (1.8-6.8); NEUTROPHILS % (AUTO) 88 % (42-75); PLATELET COUNT 434 x10^3/uL (130-400); RED BLOOD COUNT 2.59 x10^6/uL (4.38-5.82); RED CELL DISTRIBUTION WIDTH 17.2 % (9.4-14.8)
[2018-08-19 05:53] LABS: CHLORIDE 108 mmol/L (98-107)
[2018-08-19 06:13] LABS: ALANINE AMINOTRANSFERASE 22 U/L (12-78); ALBUMIN 1.5 g/dL (3.4-5.0); ALKALINE PHOSPHATASE 103 U/L (45-117); ANION GAP 13 mmol/L (5-15); BILIRUBIN,TOTAL 0.5 mg/dL (0.2-1.0); CREATININE 0.97 mg/dL (0.7-1.3); TOTAL PROTEIN 5.9 g/dL (6.4-8.2); TRIGLYCERIDES 108 mg/dL (50-200)
[2018-08-19] MEDS ORDERED: POTASSIUM CHLORIDE 40 MEQ in SODIUM CHLORIDE 0.9% 500 ML IV ONE (07:00)
[2018-08-19] MEDS ORDERED: MAGNESIUM SULFATE PMX 2GM/50ML 50 ML IV ONE (08:30)
[2018-08-19] MEDS: NOREPINEPHRINE 8 MG in SODIUM CHLORIDE 0.9% 242 ML IV PRN (08:48)
[2018-08-19] MEDS: SODIUM CHLORIDE FLUSH 10ML SYR IVF SCH ×2 (08:48→21:14)
[2018-08-19] MEDS: POTASSIUM CHLORIDE 10% 40 MEQ/30 ML UDC PO SCH (08:48)
[2018-08-19] MEDS: PANTOPRAZOLE 40 MG IV IVPush SCH (08:49)
[2018-08-19] MEDS: AMIODARONE 200 MG TABLET PO SCH ×2 (08:49→21:05)
[2018-08-19] MEDS: ASPIRIN 325 MG TABLET NG SCH (08:49)
[2018-08-19] MEDS: SODIUM CHLORIDE 0.9% 1,000 ML IV SCH ×2 (08:57→18:09)
[2018-08-19] MEDS: MIDODRINE 5 MG TABLET PO SCH ×3 (08:57→21:06)
[2018-08-19] MEDS: LIDOCAINE-MPF 1%, 2ML ENDO PRN ×3 (10:43→19:47)
[2018-08-19] MEDS: PIPERACILLIN/TAZO/PMX 3.375GM 50 ML IV SCH ×2 (13:21→18:08)
[2018-08-20] MEDS: PIPERACILLIN/TAZO/PMX 3.375GM 50 ML IV SCH ×2 (00:16→06:43)
[2018-08-20] MEDS: LINEZOLID PMX 600MG/300ML 300 ML IV SCH ×2 (01:58→14:13)
[2018-08-20] MEDS: VANCOMYCIN 50 MG/ML ORAL SUSP PO/NG SCH ×4 (03:04→21:29)
[2018-08-20] MEDS: SODIUM CHLORIDE 0.9% 1,000 ML IV SCH (03:04)
[2018-08-20 04:00] VITALS: BP 108/72
[2018-08-20] MEDS: INSULIN LISPRO 100 UNITS/ML, PEN SQ-INSULIN SCH ×4 (05:10→23:41)
[2018-08-20 05:37] LABS: ALBUMIN 1.4 g/dL (3.4-5.0); ANION GAP 10 mmol/L (5-15); CALCIUM 6.9 mg/dL (8.5-10.1); CHLORIDE 108 mmol/L (98-107); CREATININE 1.09 mg/dL (0.7-1.3)
[2018-08-20 05:41] LABS: BASOPHILS # (AUTO) 0.04 x10^3/uL (0-0.1); BASOPHILS % (AUTO) 0 % (0-1); EOSINOPHILS # (AUTO) 0.21 x10^3/uL (0-0.4); EOSINOPHILS % (AUTO) 2 % (1-7); LYMPHOCYTES # (AUTO) 0.79 x10^3/uL (1-3.4); LYMPHOCYTES % (AUTO) 9 % (22-44); MD NO; MEAN CORPUSCULAR HEMOGLOBIN 30.9 pg (27.5-34.5); MEAN CORPUSCULAR VOLUME 90.9 fL (81-97); MEAN PLATELET VOLUME 6.7 fL (7.4-10.4); MONOCYTES # (AUTO) 0.51 x10^3/uL (0.2-0.8); MONOCYTES % (AUTO) 6 % (2-9); NEUTROPHILS # (AUTO) 7.27 x10^3/uL (1.8-6.8); NEUTROPHILS % (AUTO) 83 % (42-75); PLATELET COUNT 420 x10^3/uL (130-400); RED BLOOD COUNT 2.44 x10^6/uL (4.38-5.82); RED CELL DISTRIBUTION WIDTH 17.4 % (9.4-14.8)
[2018-08-20] MEDS: ASPIRIN 325 MG TABLET NG SCH (09:33)
[2018-08-20] MEDS: SODIUM CHLORIDE FLUSH 10ML SYR IVF SCH ×2 (09:33→21:29)
[2018-08-20] MEDS: MIDODRINE 5 MG TABLET PO SCH ×3 (09:34→21:28)
[2018-08-20] MEDS: AMIODARONE 200 MG TABLET PO SCH ×2 (09:34→21:28)
[2018-08-20] MEDS: PANTOPRAZOLE 40 MG IV IVPush SCH (09:34)
[2018-08-20] MEDS: POTASSIUM CHLORIDE 10% 40 MEQ/30 ML UDC PO SCH (09:34)
[2018-08-20] MEDS: NOREPINEPHRINE 8 MG in SODIUM CHLORIDE 0.9% 242 ML IV PRN ×2 (10:21→20:00)
[2018-08-20] MEDS: CEFTAZIDIME PMX 2 GM/50ML 50 ML IV SCH ×2 (10:38→17:23)
[2018-08-20] MEDS ORDERED: AMIODARONE 150 MG in DEXTROSE 5% 100 ML IV ONE (11:00)
[2018-08-20] MEDS ORDERED: FILTER 0.22 MICRON FOR AMIODARONE IV PRN (11:00)
[2018-08-20] MEDS: FENTANYL PF 100 MCG/2ML IVPush PRN ×2 (14:13→19:58)
[2018-08-20] MEDS ORDERED: SODIUM CHLORIDE 0.9% 1,000 ML IV SCH (17:00)
[2018-08-20] MEDS: PROPOFOL 100 ML IV PRN (19:59)
[2018-08-21] MEDS: CEFTAZIDIME PMX 2 GM/50ML 50 ML IV SCH ×3 (01:41→17:20)
[2018-08-21] MEDS ORDERED: CEFTAZIDIME 2,000 MG in DEXTROSE 5% 50 ML IV SCH (02:00)
[2018-08-21] MEDS: LINEZOLID PMX 600MG/300ML 300 ML IV SCH ×2 (02:27→14:23)
[2018-08-21] MEDS: VANCOMYCIN 50 MG/ML ORAL SUSP PO/NG SCH ×4 (03:09→21:24)
[2018-08-21] MEDS: NOREPINEPHRINE 8 MG in SODIUM CHLORIDE 0.9% 242 ML IV PRN ×2 (04:28→16:17)
[2018-08-21] MEDS: FENTANYL PF 100 MCG/2ML IVPush PRN (04:28)
[2018-08-21 05:00] VITALS: BP 110/61
[2018-08-21 05:05] LABS: ALANINE AMINOTRANSFERASE 19 U/L (12-78); ALBUMIN 1.5 g/dL (3.4-5.0); ANION GAP 9 mmol/L (5-15); CALCIUM 6.4 mg/dL (8.5-10.1); CHLORIDE 109 mmol/L (98-107); CREATININE 1.23 mg/dL (0.7-1.3)
[2018-08-21 05:07] LABS: ALKALINE PHOSPHATASE 100 U/L (45-117); BILIRUBIN,TOTAL 0.4 mg/dL (0.2-1.0); TOTAL PROTEIN 5.7 g/dL (6.4-8.2)
[2018-08-21 05:18] LABS: MEAN CORPUSCULAR HGB CONC 33.9 g/dL (33.2-36.2); MEAN CORPUSCULAR VOLUME 91.3 fL (81-97); MEAN PLATELET VOLUME 6.7 fL (7.4-10.4); PLATELET COUNT 389 x10^3/uL (130-400); RED BLOOD COUNT 2.38 x10^6/uL (4.38-5.82); RED CELL DISTRIBUTION WIDTH 17.5 % (9.4-14.8)
[2018-08-21 05:49] LABS: BASOPHILS # (AUTO) 0.07 x10^3/uL (0-0.1); BASOPHILS % (AUTO) 1 % (0-1); EOSINOPHILS % (AUTO) 3 % (1-7); LYMPHOCYTES # (AUTO) 1.13 x10^3/uL (1-3.4); LYMPHOCYTES % (AUTO) 16 % (22-44); MD SCAN; MONOCYTES # (AUTO) 0.55 x10^3/uL (0.2-0.8); MONOCYTES % (AUTO) 8 % (2-9); NEUTROPHILS # (AUTO) 4.91 x10^3/uL (1.8-6.8); NEUTROPHILS % (AUTO) 72 % (42-75)
[2018-08-21] MEDS: INSULIN LISPRO 100 UNITS/ML, PEN SQ-INSULIN SCH ×4 (05:56→23:32)
[2018-08-21] MEDS: POTASSIUM CHLORIDE 10% 40 MEQ/30 ML UDC PO SCH (08:39)
[2018-08-21] MEDS: PANTOPRAZOLE 40 MG IV IVPush SCH (08:39)
[2018-08-21] MEDS: ASPIRIN 325 MG TABLET NG SCH (08:39)
[2018-08-21] MEDS: MIDODRINE 5 MG TABLET PO SCH ×3 (08:40→21:23)
[2018-08-21] MEDS: AMIODARONE 200 MG TABLET PO SCH ×2 (08:40→21:23)
[2018-08-21] MEDS: SODIUM CHLORIDE FLUSH 10ML SYR IVF SCH ×2 (08:41→21:23)
[2018-08-21] MEDS ORDERED: MAGNESIUM SULFATE PMX 2GM/50ML 50 ML IV ONE (11:00)
[2018-08-21] MEDS: PROPOFOL 100 ML IV PRN (17:27)
[2018-08-21] MEDS ORDERED: INSULIN GLARGINE 100 UNITS/ML, PEN SQ-INSULIN SCH (21:00)
[2018-08-22] MEDS: CEFTAZIDIME 2,000 MG in DEXTROSE 5% 50 ML IV SCH ×3 (02:14→17:16)
[2018-08-22] MEDS: PROPOFOL 100 ML IV PRN ×2 (02:52→11:46)
[2018-08-22] MEDS: LINEZOLID PMX 600MG/300ML 300 ML IV SCH ×2 (02:52→13:57)
[2018-08-22 04:00] VITALS: BP 100/49
[2018-08-22 04:17] LABS: BASOPHILS # (AUTO) 0.03 x10^3/uL (0-0.1); BASOPHILS % (AUTO) 0 % (0-1); EOSINOPHILS # (AUTO) 0.46 x10^3/uL (0-0.4); EOSINOPHILS % (AUTO) 6 % (1-7); LYMPHOCYTES % (AUTO) 14 % (22-44); MD NO; MEAN CORPUSCULAR HEMOGLOBIN 30.3 pg (27.5-34.5); MEAN CORPUSCULAR HGB CONC 32.7 g/dL (33.2-36.2); MEAN CORPUSCULAR VOLUME 92.6 fL (81-97); MONOCYTES # (AUTO) 0.56 x10^3/uL (0.2-0.8); MONOCYTES % (AUTO) 8 % (2-9); NEUTROPHILS # (AUTO) 5.16 x10^3/uL (1.8-6.8); NEUTROPHILS % (AUTO) 72 % (42-75); PLATELET COUNT 391 x10^3/uL (130-400); RED BLOOD COUNT 2.51 x10^6/uL (4.38-5.82); RED CELL DISTRIBUTION WIDTH 18.2 % (9.4-14.8)
[2018-08-22] MEDS: VANCOMYCIN 50 MG/ML ORAL SUSP PO/NG SCH ×4 (04:19→21:47)
[2018-08-22 04:28] LABS: ALANINE AMINOTRANSFERASE 19 U/L (12-78); ALBUMIN 1.5 g/dL (3.4-5.0); ANION GAP 8 mmol/L (5-15); CALCIUM 6.9 mg/dL (8.5-10.1); CHLORIDE 106 mmol/L (98-107); TRIGLYCERIDES 220 mg/dL (50-200)
[2018-08-22 04:30] LABS: ALKALINE PHOSPHATASE 104 U/L (45-117); BILIRUBIN,TOTAL 0.2 mg/dL (0.2-1.0)
[2018-08-22] MEDS: INSULIN LISPRO 100 UNITS/ML, PEN SQ-INSULIN SCH ×4 (05:46→21:05)
[2018-08-22 06:41] LABS: FIO2 30 %
[2018-08-22] MEDS: PANTOPRAZOLE 40 MG IV IVPush SCH (08:50)
[2018-08-22] MEDS: SODIUM CHLORIDE FLUSH 10ML SYR IVF SCH ×2 (08:50→21:06)
[2018-08-22] MEDS: ASPIRIN 325 MG TABLET NG SCH (08:51)
[2018-08-22] MEDS: POTASSIUM CHLORIDE 10% 40 MEQ/30 ML UDC PO SCH (08:51)
[2018-08-22] MEDS: AMIODARONE 200 MG TABLET PO SCH ×2 (08:51→21:07)
[2018-08-22] MEDS: MIDODRINE 5 MG TABLET PO SCH ×3 (08:52→21:08)
[2018-08-22] MEDS: INSULIN GLARGINE 100 UNITS/ML, PEN SQ-INSULIN SCH (21:10)
[2018-08-23] MEDS: CEFTAZIDIME 2,000 MG in DEXTROSE 5% 50 ML IV SCH ×4 (01:37→21:20)
[2018-08-23] MEDS: PROPOFOL 100 ML IV PRN ×3 (01:38→23:34)
[2018-08-23] MEDS: NOREPINEPHRINE 8 MG in SODIUM CHLORIDE 0.9% 242 ML IV PRN ×2 (01:38→09:56)
[2018-08-23] MEDS: VANCOMYCIN 50 MG/ML ORAL SUSP PO/NG SCH ×4 (03:30→20:52)
[2018-08-23] MEDS: LINEZOLID PMX 600MG/300ML 300 ML IV SCH ×2 (03:30→13:55)
[2018-08-23 04:00] VITALS: BP 119/52
[2018-08-23 05:13] LABS: ANION GAP 5 mmol/L (5-15); CHLORIDE 105 mmol/L (98-107); CREATININE 1.23 mg/dL (0.7-1.3)
[2018-08-23 05:19] LABS: MEAN CORPUSCULAR HEMOGLOBIN 31.1 pg (27.5-34.5); MEAN CORPUSCULAR HGB CONC 33.8 g/dL (33.2-36.2); MEAN PLATELET VOLUME 6.8 fL (7.4-10.4); PLATELET COUNT 320 x10^3/uL (130-400); RED BLOOD COUNT 2.41 x10^6/uL (4.38-5.82); RED CELL DISTRIBUTION WIDTH 18.2 % (9.4-14.8)
[2018-08-23] MEDS: INSULIN LISPRO 100 UNITS/ML, PEN SQ-INSULIN SCH ×4 (05:57→23:13)
[2018-08-23 06:00] LABS: BASOPHILS # (AUTO) 0.07 x10^3/uL (0-0.1); BASOPHILS % (AUTO) 1 % (0-1); EOSINOPHILS # (AUTO) 0.67 x10^3/uL (0-0.4); EOSINOPHILS % (AUTO) 10 % (1-7); LYMPHOCYTES # (AUTO) 1.02 x10^3/uL (1-3.4); LYMPHOCYTES % (AUTO) 15 % (22-44); MD SCAN; MONOCYTES % (AUTO) 6 % (2-9); NEUTROPHILS # (AUTO) 4.63 x10^3/uL (1.8-6.8); NEUTROPHILS % (AUTO) 68 % (42-75)
[2018-08-23] MEDS ORDERED: FUROSEMIDE 20 MG/2 ML IV ONE (08:30)
[2018-08-23] MEDS: ASPIRIN 325 MG TABLET NG SCH (09:00)
[2018-08-23] MEDS: POTASSIUM CHLORIDE 10% 40 MEQ/30 ML UDC PO SCH (09:00)
[2018-08-23] MEDS: PANTOPRAZOLE 40 MG IV IVPush SCH (09:00)
[2018-08-23] MEDS: MIDODRINE 5 MG TABLET PO SCH ×3 (09:01→20:51)
[2018-08-23] MEDS: AMIODARONE 200 MG TABLET PO SCH ×2 (09:02→20:52)
[2018-08-23] MEDS: SODIUM CHLORIDE FLUSH 10ML SYR IVF SCH ×2 (09:03→21:22)
[2018-08-23] MEDS: SCOPOLAMINE PATCH, 1.5MG PATCH.TD72 TD SCH (15:55)
[2018-08-23] MEDS: INSULIN GLARGINE 100 UNITS/ML, PEN SQ-INSULIN SCH (20:53)
[2018-08-24] MEDS: LINEZOLID PMX 600MG/300ML 300 ML IV SCH ×2 (02:32→11:40)
[2018-08-24] MEDS: VANCOMYCIN 50 MG/ML ORAL SUSP PO/NG SCH ×4 (02:37→20:32)
[2018-08-24 04:00] VITALS: BP 123/43
[2018-08-24] MEDS: INSULIN LISPRO 100 UNITS/ML, PEN SQ-INSULIN SCH ×4 (04:53→23:04)
[2018-08-24] MEDS: CEFTAZIDIME 2,000 MG in DEXTROSE 5% 50 ML IV SCH ×3 (05:04→22:00)
[2018-08-24 06:04] LABS: ALANINE AMINOTRANSFERASE 15 U/L (12-78); ALBUMIN 1.5 g/dL (3.4-5.0); ANION GAP 7 mmol/L (5-15); CALCIUM 7.2 mg/dL (8.5-10.1); CHLORIDE 103 mmol/L (98-107); CREATININE 1.18 mg/dL (0.7-1.3); TRIGLYCERIDES 165 mg/dL (50-200)
[2018-08-24 06:06] LABS: ALKALINE PHOSPHATASE 102 U/L (45-117); BILIRUBIN,TOTAL 0.3 mg/dL (0.2-1.0); TOTAL PROTEIN 6.1 g/dL (6.4-8.2)
[2018-08-24 06:07] LABS: MEAN CORPUSCULAR HEMOGLOBIN 30.6 pg (27.5-34.5); MEAN CORPUSCULAR HGB CONC 33.5 g/dL (33.2-36.2); MEAN CORPUSCULAR VOLUME 91.4 fL (81-97); MEAN PLATELET VOLUME 7.3 fL (7.4-10.4); PLATELET COUNT 300 x10^3/uL (130-400); RED BLOOD COUNT 2.34 x10^6/uL (4.38-5.82); RED CELL DISTRIBUTION WIDTH 17.5 % (9.4-14.8)
[2018-08-24 06:23] LABS: BASOPHILS # (AUTO) 0.06 x10^3/uL (0-0.1); BASOPHILS % (AUTO) 1 % (0-1); EOSINOPHILS # (AUTO) 0.68 x10^3/uL (0-0.4); EOSINOPHILS % (AUTO) 9 % (1-7); LYMPHOCYTES % (AUTO) 11 % (22-44); MD SCAN; MONOCYTES # (AUTO) 0.38 x10^3/uL (0.2-0.8); MONOCYTES % (AUTO) 5 % (2-9); NEUTROPHILS # (AUTO) 5.55 x10^3/uL (1.8-6.8); NEUTROPHILS % (AUTO) 74 % (42-75)
[2018-08-24] MEDS ORDERED: MAGNESIUM SULFATE PMX 2GM/50ML 50 ML IV ONE (08:30)
[2018-08-24] MEDS: MIDODRINE 5 MG TABLET PO SCH ×3 (09:08→20:31)
[2018-08-24] MEDS: POTASSIUM CHLORIDE 10% 40 MEQ/30 ML UDC PO SCH (09:08)
[2018-08-24] MEDS: PANTOPRAZOLE 40 MG IV IVPush SCH (09:08)
[2018-08-24] MEDS: FUROSEMIDE 20 MG/2 ML IV SCH ×2 (09:09→20:30)
[2018-08-24] MEDS: ASPIRIN 325 MG TABLET NG SCH (09:09)
[2018-08-24] MEDS: SODIUM CHLORIDE FLUSH 10ML SYR IVF SCH ×2 (09:09→20:31)
[2018-08-24] MEDS: AMIODARONE 200 MG TABLET PO SCH ×2 (09:09→20:31)
[2018-08-24] MEDS: NOREPINEPHRINE 8 MG in SODIUM CHLORIDE 0.9% 242 ML IV PRN (09:22)
[2018-08-24] MEDS: RISPERIDONE 1 MG/ML ORAL SOLN PO/NG SCH ×2 (09:31→20:32)
[2018-08-24] MEDS: PROPOFOL 100 ML IV PRN (11:41)
[2018-08-24] MEDS: INSULIN GLARGINE 100 UNITS/ML, PEN SQ-INSULIN SCH (20:33)
[2018-08-24] MEDS: FENTANYL PF 100 MCG/2ML IVPush PRN (22:01)
[2018-08-25] MEDS: LINEZOLID PMX 600MG/300ML 300 ML IV SCH ×2 (02:41→14:31)
[2018-08-25] MEDS: NOREPINEPHRINE 8 MG in SODIUM CHLORIDE 0.9% 242 ML IV PRN ×2 (02:43→16:58)
[2018-08-25] MEDS: VANCOMYCIN 50 MG/ML ORAL SUSP PO/NG SCH ×4 (03:11→20:32)
[2018-08-25 04:00] VITALS: BP 118/48
[2018-08-25 05:26] LABS: BASOPHILS # (AUTO) 0.04 x10^3/uL (0-0.1); BASOPHILS % (AUTO) 1 % (0-1); EOSINOPHILS # (AUTO) 0.56 x10^3/uL (0-0.4); EOSINOPHILS % (AUTO) 9 % (1-7); LYMPHOCYTES # (AUTO) 0.86 x10^3/uL (1-3.4); LYMPHOCYTES % (AUTO) 13 % (22-44); MD NO; MEAN CORPUSCULAR HGB CONC 33.6 g/dL (33.2-36.2); MEAN CORPUSCULAR VOLUME 92.2 fL (81-97); MEAN PLATELET VOLUME 7.4 fL (7.4-10.4); MONOCYTES # (AUTO) 0.34 x10^3/uL (0.2-0.8); MONOCYTES % (AUTO) 5 % (2-9); NEUTROPHILS # (AUTO) 4.73 x10^3/uL (1.8-6.8); NEUTROPHILS % (AUTO) 73 % (42-75); PLATELET COUNT 235 x10^3/uL (130-400); RED CELL DISTRIBUTION WIDTH 17.8 % (9.4-14.8)
[2018-08-25 05:29] LABS: ALBUMIN 1.5 g/dL (3.4-5.0); ANION GAP 7 mmol/L (5-15); CALCIUM 7.4 mg/dL (8.5-10.1); CHLORIDE 102 mmol/L (98-107); CREATININE 1.46 mg/dL (0.7-1.3)
[2018-08-25] MEDS: INSULIN LISPRO 100 UNITS/ML, PEN SQ-INSULIN SCH ×4 (05:57→23:00)
[2018-08-25] MEDS: CEFTAZIDIME 2,000 MG in DEXTROSE 5% 50 ML IV SCH ×2 (05:58→16:58)
[2018-08-25 09:13] VITALS: BP 119/50
[2018-08-25 09:28] VITALS: BP 119/50
[2018-08-25 09:45] VITALS: BP 110/45
[2018-08-25] MEDS: ALBUMIN HUMAN 25% 100 ML IV SCH ×2 (09:53→16:03)
[2018-08-25] MEDS: PANTOPRAZOLE 40 MG IV IVPush SCH (09:53)
[2018-08-25] MEDS: FUROSEMIDE 20 MG/2 ML IV SCH ×2 (09:53→20:30)
[2018-08-25] MEDS: MIDODRINE 5 MG TABLET PO SCH ×3 (09:54→20:31)
[2018-08-25] MEDS: SODIUM CHLORIDE FLUSH 10ML SYR IVF SCH ×2 (09:54→23:33)
[2018-08-25] MEDS: POTASSIUM CHLORIDE 10% 40 MEQ/30 ML UDC PO SCH (09:54)
[2018-08-25] MEDS: AMIODARONE 200 MG TABLET PO SCH ×2 (09:55→20:31)
[2018-08-25] MEDS: ASPIRIN 325 MG TABLET NG SCH (09:55)
[2018-08-25] MEDS: RISPERIDONE 1 MG/ML ORAL SOLN PO/NG SCH ×2 (09:56→20:32)
[2018-08-25 10:30] VITALS: BP 127/49
[2018-08-25 11:30] VITALS: BP 114/45
[2018-08-25] MEDS: MIDAZOLAM HCL 25 MG in SODIUM CHLORIDE 0.9% 245 ML IV PRN (18:20)
[2018-08-25] MEDS: INSULIN GLARGINE 100 UNITS/ML, PEN SQ-INSULIN SCH (20:36)
[2018-08-26] MEDS: ALBUMIN HUMAN 25% 100 ML IV SCH ×3 (01:38→16:07)
[2018-08-26] MEDS: CEFTAZIDIME 2,000 MG in DEXTROSE 5% 50 ML IV SCH ×3 (02:26→22:23)
[2018-08-26] MEDS: LINEZOLID PMX 600MG/300ML 300 ML IV SCH ×2 (03:07→14:24)
[2018-08-26] MEDS: VANCOMYCIN 50 MG/ML ORAL SUSP PO/NG SCH ×4 (03:07→21:39)
[2018-08-26 04:33] VITALS: BP 120/50
[2018-08-26] MEDS: INSULIN LISPRO 100 UNITS/ML, PEN SQ-INSULIN SCH ×4 (05:00→23:06)
[2018-08-26 06:06] LABS: BASOPHILS # (AUTO) 0.03 x10^3/uL (0-0.1); BASOPHILS % (AUTO) 0 % (0-1); EOSINOPHILS # (AUTO) 0.52 x10^3/uL (0-0.4); EOSINOPHILS % (AUTO) 8 % (1-7); LYMPHOCYTES # (AUTO) 0.93 x10^3/uL (1-3.4); LYMPHOCYTES % (AUTO) 15 % (22-44); MD NO; MEAN CORPUSCULAR HEMOGLOBIN 30.4 pg (27.5-34.5); MEAN CORPUSCULAR HGB CONC 34.2 g/dL (33.2-36.2); MEAN CORPUSCULAR VOLUME 88.8 fL (81-97); MEAN PLATELET VOLUME 7.4 fL (7.4-10.4); MONOCYTES # (AUTO) 0.31 x10^3/uL (0.2-0.8); MONOCYTES % (AUTO) 5 % (2-9); NEUTROPHILS % (AUTO) 72 % (42-75); PLATELET COUNT 180 x10^3/uL (130-400); RED BLOOD COUNT 2.48 x10^6/uL (4.38-5.82); RED CELL DISTRIBUTION WIDTH 19.6 % (9.4-14.8)
[2018-08-26 06:17] LABS: ALBUMIN 2.8 g/dL (3.4-5.0); ANION GAP 9 mmol/L (5-15); CALCIUM 8.2 mg/dL (8.5-10.1); CHLORIDE 105 mmol/L (98-107); CREATININE 1.65 mg/dL (0.7-1.3)
[2018-08-26] MEDS: AMIODARONE 200 MG TABLET PO SCH ×2 (09:21→21:38)
[2018-08-26] MEDS: ASPIRIN 325 MG TABLET NG SCH (09:21)
[2018-08-26] MEDS: POTASSIUM CHLORIDE 10% 40 MEQ/30 ML UDC PO SCH (09:21)
[2018-08-26] MEDS: FUROSEMIDE 20 MG/2 ML IV SCH ×2 (09:21→21:38)
[2018-08-26] MEDS: PANTOPRAZOLE 40 MG IV IVPush SCH (09:21)
[2018-08-26] MEDS: RISPERIDONE 1 MG/ML ORAL SOLN PO/NG SCH ×2 (09:22→21:39)
[2018-08-26] MEDS: MIDODRINE 5 MG TABLET PO SCH ×3 (09:22→21:38)
[2018-08-26] MEDS: SODIUM CHLORIDE FLUSH 10ML SYR IVF SCH ×2 (09:23→21:37)
[2018-08-26] MEDS: MIDAZOLAM HCL 25 MG in SODIUM CHLORIDE 0.9% 245 ML IV PRN ×2 (09:27→18:07)
[2018-08-26] MEDS: NOREPINEPHRINE 8 MG in SODIUM CHLORIDE 0.9% 242 ML IV PRN (09:40)
[2018-08-26] MEDS: SCOPOLAMINE PATCH, 1.5MG PATCH.TD72 TD SCH (18:40)
[2018-08-26] MEDS: INSULIN GLARGINE 100 UNITS/ML, PEN SQ-INSULIN SCH (21:39)
[2018-08-27] MEDS: ALBUMIN HUMAN 25% 100 ML IV SCH ×3 (01:19→16:26)
[2018-08-27] MEDS: LINEZOLID PMX 600MG/300ML 300 ML IV SCH ×2 (01:57→14:07)
[2018-08-27 04:00] VITALS: BP 122/48
[2018-08-27] MEDS: INSULIN LISPRO 100 UNITS/ML, PEN SQ-INSULIN SCH ×4 (05:00→23:17)
[2018-08-27 06:07] LABS: MEAN CORPUSCULAR HEMOGLOBIN 30.2 pg (27.5-34.5); MEAN CORPUSCULAR HGB CONC 34.1 g/dL (33.2-36.2); MEAN CORPUSCULAR VOLUME 88.5 fL (81-97); MEAN PLATELET VOLUME 7.3 fL (7.4-10.4); PLATELET COUNT 152 x10^3/uL (130-400); RED BLOOD COUNT 2.41 x10^6/uL (4.38-5.82); RED CELL DISTRIBUTION WIDTH 19.1 % (9.4-14.8)
[2018-08-27 06:10] LABS: ALBUMIN 3.4 g/dL (3.4-5.0); ANION GAP 9 mmol/L (5-15); CALCIUM 8.8 mg/dL (8.5-10.1); CHLORIDE 103 mmol/L (98-107); CREATININE 1.64 mg/dL (0.7-1.3)
[2018-08-27] MEDS: NOREPINEPHRINE 8 MG in SODIUM CHLORIDE 0.9% 242 ML IV PRN (06:13)
[2018-08-27 06:39] LABS: BASOPHILS # (AUTO) 0.02 x10^3/uL (0-0.1); BASOPHILS % (AUTO) 0 % (0-1); EOSINOPHILS # (AUTO) 0.38 x10^3/uL (0-0.4); EOSINOPHILS % (AUTO) 7 % (1-7); LYMPHOCYTES # (AUTO) 0.73 x10^3/uL (1-3.4); LYMPHOCYTES % (AUTO) 13 % (22-44); MD SCAN; MONOCYTES % (AUTO) 6 % (2-9); NEUTROPHILS % (AUTO) 74 % (42-75)
[2018-08-27] MEDS: MIDAZOLAM HCL 25 MG in SODIUM CHLORIDE 0.9% 245 ML IV PRN ×2 (07:53→22:00)
[2018-08-27] MEDS: CEFTAZIDIME 2,000 MG in DEXTROSE 5% 50 ML IV SCH ×2 (08:47→21:51)
[2018-08-27] MEDS: FUROSEMIDE 20 MG/2 ML IV SCH ×2 (09:02→21:49)
[2018-08-27] MEDS: PANTOPRAZOLE 40 MG IV IVPush SCH (09:02)
[2018-08-27] MEDS: POTASSIUM CHLORIDE 10% 40 MEQ/30 ML UDC PO SCH (09:02)
[2018-08-27] MEDS: SODIUM CHLORIDE FLUSH 10ML SYR IVF SCH ×2 (09:02→21:49)
[2018-08-27] MEDS: MIDODRINE 5 MG TABLET PO SCH ×3 (09:03→21:48)
[2018-08-27] MEDS: AMIODARONE 200 MG TABLET PO SCH ×2 (09:03→21:49)
[2018-08-27] MEDS: ASPIRIN 325 MG TABLET NG SCH (09:03)
[2018-08-27] MEDS: RISPERIDONE 1 MG/ML ORAL SOLN PO/NG SCH ×2 (09:04→21:50)
[2018-08-27] MEDS: VANCOMYCIN 50 MG/ML ORAL SUSP PO SCH ×2 (10:53→22:00)
[2018-08-27] MEDS ORDERED: VECURONIUM 10 MG ONE (15:05)
[2018-08-27] MEDS ORDERED: MIDAZOLAM 1 MG/ML, 5ML ONE (15:05)
[2018-08-27 15:23] LABS: ALBUMIN 3.6 g/dL (3.4-5.0); ANION GAP 11 mmol/L (5-15); CALCIUM 8.9 mg/dL (8.5-10.1); CHLORIDE 105 mmol/L (98-107); CREATININE 1.77 mg/dL (0.7-1.3)
[2018-08-27] MEDS ORDERED: MIDAZOLAM 1 MG/ML, 5ML IVPush ONE (16:00)
[2018-08-27] MEDS ORDERED: VECURONIUM 10 MG IVPush ONE (16:00)
[2018-08-27] MEDS ORDERED: FENTANYL PF 100 MCG/2ML IVPush ONE (16:00)
[2018-08-27] MEDS: INSULIN GLARGINE 100 UNITS/ML, PEN SQ-INSULIN SCH (21:51)
[2018-08-28] MEDS: ALBUMIN HUMAN 25% 100 ML IV SCH ×2 (00:49→08:30)
[2018-08-28] MEDS: LINEZOLID PMX 600MG/300ML 300 ML IV SCH ×2 (02:25→13:31)
[2018-08-28] MEDS: NOREPINEPHRINE 8 MG in SODIUM CHLORIDE 0.9% 242 ML IV PRN (02:30)
[2018-08-28 04:49] LABS: MEAN CORPUSCULAR HEMOGLOBIN 30.3 pg (27.5-34.5); MEAN CORPUSCULAR HGB CONC 33.6 g/dL (33.2-36.2); MEAN CORPUSCULAR VOLUME 90.1 fL (81-97); MEAN PLATELET VOLUME 7.5 fL (7.4-10.4); PLATELET COUNT 119 x10^3/uL (130-400); RED BLOOD COUNT 2.37 x10^6/uL (4.38-5.82)
[2018-08-28 04:52] LABS: ALBUMIN 3.9 g/dL (3.4-5.0); ANION GAP 10 mmol/L (5-15); CALCIUM 8.4 mg/dL (8.5-10.1); CHLORIDE 103 mmol/L (98-107)
[2018-08-28] MEDS: INSULIN LISPRO 100 UNITS/ML, PEN SQ-INSULIN SCH ×4 (05:13→22:23)
[2018-08-28 05:41] LABS: BASOPHILS # (AUTO) 0.02 x10^3/uL (0-0.1); BASOPHILS % (AUTO) 0 % (0-1); EOSINOPHILS # (AUTO) 0.38 x10^3/uL (0-0.4); EOSINOPHILS % (AUTO) 7 % (1-7); LYMPHOCYTES # (AUTO) 0.55 x10^3/uL (1-3.4); LYMPHOCYTES % (AUTO) 10 % (22-44); MD SCAN; MONOCYTES # (AUTO) 0.28 x10^3/uL (0.2-0.8); MONOCYTES % (AUTO) 5 % (2-9); NEUTROPHILS # (AUTO) 4.11 x10^3/uL (1.8-6.8); NEUTROPHILS % (AUTO) 77 % (42-75)
[2018-08-28] MEDS: FUROSEMIDE 20 MG/2 ML IV SCH (08:30)
[2018-08-28] MEDS: AMIODARONE 200 MG TABLET PO SCH ×2 (08:47→22:21)
[2018-08-28] MEDS: ASPIRIN 325 MG TABLET NG SCH (08:47)
[2018-08-28] MEDS: SODIUM CHLORIDE FLUSH 10ML SYR IVF SCH ×2 (08:47→22:20)
[2018-08-28] MEDS: VANCOMYCIN 50 MG/ML ORAL SUSP PO SCH ×2 (08:48→22:21)
[2018-08-28] MEDS: PANTOPRAZOLE 40 MG IV IVPush SCH (08:48)
[2018-08-28] MEDS: POTASSIUM CHLORIDE 10% 40 MEQ/30 ML UDC PO SCH (08:48)
[2018-08-28] MEDS: MIDODRINE 5 MG TABLET PO SCH ×3 (08:48→22:21)
[2018-08-28] MEDS: RISPERIDONE 1 MG/ML ORAL SOLN PO/NG SCH (08:48)
[2018-08-28] MEDS: CEFTAZIDIME 2,000 MG in DEXTROSE 5% 50 ML IV SCH ×2 (10:25→22:23)
[2018-08-28] MEDS ORDERED: NOREPINEPHRINE 8 MG in SODIUM CHLORIDE 0.9% 242 ML IV PRN (19:00)
[2018-08-28] MEDS: INSULIN GLARGINE 100 UNITS/ML, PEN SQ-INSULIN SCH (22:22)
[2018-08-29] MEDS: LINEZOLID PMX 600MG/300ML 300 ML IV SCH ×2 (02:15→14:27)
[2018-08-29 04:23] LABS: MEAN CORPUSCULAR HEMOGLOBIN 30.2 pg (27.5-34.5); MEAN CORPUSCULAR HGB CONC 33.5 g/dL (33.2-36.2); MEAN CORPUSCULAR VOLUME 90.1 fL (81-97); MEAN PLATELET VOLUME 7.8 fL (7.4-10.4); PLATELET COUNT 112 x10^3/uL (130-400); RED BLOOD COUNT 2.37 x10^6/uL (4.38-5.82); RED CELL DISTRIBUTION WIDTH 18.8 % (9.4-14.8)
[2018-08-29 04:33] LABS: ALBUMIN 3.2 g/dL (3.4-5.0); ANION GAP 7 mmol/L (5-15); CALCIUM 8.5 mg/dL (8.5-10.1); CHLORIDE 104 mmol/L (98-107); CREATININE 1.54 mg/dL (0.7-1.3)
[2018-08-29 04:34] LABS: BASOPHILS % (AUTO) 0 % (0-1); EOSINOPHILS # (AUTO) 0.31 x10^3/uL (0-0.4); EOSINOPHILS % (AUTO) 5 % (1-7); LYMPHOCYTES # (AUTO) 0.54 x10^3/uL (1-3.4); LYMPHOCYTES % (AUTO) 8 % (22-44); MD SCAN; MONOCYTES # (AUTO) 0.35 x10^3/uL (0.2-0.8); MONOCYTES % (AUTO) 5 % (2-9); NEUTROPHILS # (AUTO) 5.58 x10^3/uL (1.8-6.8); NEUTROPHILS % (AUTO) 82 % (42-75)
[2018-08-29] MEDS: INSULIN LISPRO 100 UNITS/ML, PEN SQ-INSULIN SCH ×4 (05:11→22:14)
[2018-08-29] MEDS: PANTOPRAZOLE 40 MG IV IVPush SCH (10:29)
[2018-08-29] MEDS: ASPIRIN 325 MG TABLET NG SCH (10:29)
[2018-08-29] MEDS: SODIUM CHLORIDE FLUSH 10ML SYR IVF SCH ×2 (10:29→22:13)
[2018-08-29] MEDS: MIDODRINE 5 MG TABLET PO SCH ×3 (10:30→22:13)
[2018-08-29] MEDS: CEFTAZIDIME 2,000 MG in DEXTROSE 5% 50 ML IV SCH (10:30)
[2018-08-29] MEDS: AMIODARONE 200 MG TABLET PO SCH ×2 (10:30→22:14)
[2018-08-29] MEDS: VANCOMYCIN 50 MG/ML ORAL SUSP PO SCH ×2 (10:30→22:13)
[2018-08-29] MEDS ORDERED: VANCOMYCIN PMX 1GM/200ML 200 ML IV ONE ×2 (13:30)
[2018-08-29] MEDS ORDERED: VANCOMYCIN 1,000 MG in SODIUM CHLORIDE 0.9% 250 ML IVPB SCH (13:30)
[2018-08-29] MEDS: SCOPOLAMINE PATCH, 1.5MG PATCH.TD72 TD SCH (18:17)
[2018-08-29] MEDS ORDERED: CEFTAZIDIME 2,000 MG in DEXTROSE 5% 50 ML IV SCH (22:00)
[2018-08-29] MEDS: INSULIN GLARGINE 100 UNITS/ML, PEN SQ-INSULIN SCH (22:14)
[2018-08-30 04:51] LABS: MEAN CORPUSCULAR HEMOGLOBIN 29.8 pg (27.5-34.5); MEAN CORPUSCULAR HGB CONC 33.4 g/dL (33.2-36.2); MEAN CORPUSCULAR VOLUME 89.2 fL (81-97); MEAN PLATELET VOLUME 8.2 fL (7.4-10.4); PLATELET COUNT 98 x10^3/uL (130-400); RED BLOOD COUNT 2.26 x10^6/uL (4.38-5.82); RED CELL DISTRIBUTION WIDTH 18.3 % (9.4-14.8)
[2018-08-30 04:59] LABS: HEMOGRAM NOTE RECHECKED
[2018-08-30] MEDS: INSULIN LISPRO 100 UNITS/ML, PEN SQ-INSULIN SCH ×4 (05:00→22:18)
[2018-08-30 06:00] LABS: ALANINE AMINOTRANSFERASE 16 U/L (12-78); ANION GAP 7 mmol/L (5-15); CALCIUM 8.4 mg/dL (8.5-10.1); CHLORIDE 105 mmol/L (98-107); CREATININE 1.57 mg/dL (0.7-1.3)
[2018-08-30 06:00] LABS: INTERNATIONAL NORMALIZED RATIO 1.02 (0.93-1.1); PROTHROMBIN TIME 10.8 Seconds (9.6-11.5)
[2018-08-30 06:02] LABS: ALKALINE PHOSPHATASE 74 U/L (45-117); BILIRUBIN,TOTAL 0.6 mg/dL (0.2-1.0); TOTAL PROTEIN 7.2 g/dL (6.4-8.2)
[2018-08-30 06:08] LABS: BASOPHILS # (AUTO) 0.01 x10^3/uL (0-0.1); BASOPHILS % (AUTO) 0 % (0-1); EOSINOPHILS # (AUTO) 0.41 x10^3/uL (0-0.4); EOSINOPHILS % (AUTO) 6 % (1-7); LYMPHOCYTES # (AUTO) 1.03 x10^3/uL (1-3.4); LYMPHOCYTES % (AUTO) 15 % (22-44); MD SCAN; MONOCYTES # (AUTO) 0.45 x10^3/uL (0.2-0.8); MONOCYTES % (AUTO) 6 % (2-9); NEUTROPHILS # (AUTO) 5.14 x10^3/uL (1.8-6.8); NEUTROPHILS % (AUTO) 73 % (42-75)
[2018-08-30 07:53] VITALS: BP 104/46
[2018-08-30 08:25] VITALS: BP 104/46
[2018-08-30] MEDS ORDERED: D5%-0.45% NACL 1,000 ML IV SCH (08:30)
[2018-08-30] MEDS: ASPIRIN 325 MG TABLET NG SCH (08:34)
[2018-08-30] MEDS: MIDODRINE 5 MG TABLET PO SCH ×3 (08:34→22:08)
[2018-08-30] MEDS: VANCOMYCIN 50 MG/ML ORAL SUSP PO SCH ×2 (08:35→22:08)
[2018-08-30] MEDS: AMIODARONE 200 MG TABLET PO SCH ×2 (08:59→22:08)
[2018-08-30 09:06] VITALS: BP 96/41
[2018-08-30] MEDS: SODIUM CHLORIDE FLUSH 10ML SYR IVF SCH ×2 (09:06→22:09)
[2018-08-30 09:45] VITALS: BP 110/49
[2018-08-30] MEDS ORDERED: MIDAZOLAM 1 MG/ML, 5ML ONE (10:35)
[2018-08-30] MEDS ORDERED: FENTANYL PF 100 MCG/2ML ONE (10:35)
[2018-08-30] MEDS: PANTOPRAZOLE 40 MG IV IVPush SCH (10:36)
--- NOTE | 2018-08-30 11:56 | NUR ---
08/30 TF GOAL when ordered: PROMOTE W/ FIBER @ 75ML/HR
[2018-08-30] MEDS ORDERED: FUROSEMIDE 20 MG/2 ML IV ONE (21:00)
[2018-08-30] MEDS: INSULIN GLARGINE 100 UNITS/ML, PEN SQ-INSULIN SCH (22:18)
[2018-08-31 04:18] LABS: MEAN CORPUSCULAR HEMOGLOBIN 30.5 pg (27.5-34.5); MEAN CORPUSCULAR HGB CONC 34.2 g/dL (33.2-36.2); MEAN PLATELET VOLUME 8.6 fL (7.4-10.4); PLATELET COUNT 97 x10^3/uL (130-400); RED BLOOD COUNT 2.66 x10^6/uL (4.38-5.82); RED CELL DISTRIBUTION WIDTH 17.2 % (9.4-14.8)
[2018-08-31 04:20] LABS: ALBUMIN 2.9 g/dL (3.4-5.0); ANION GAP 9 mmol/L (5-15); CALCIUM 8.5 mg/dL (8.5-10.1); CHLORIDE 104 mmol/L (98-107)
[2018-08-31 04:40] LABS: BASOPHILS # (AUTO) 0.02 x10^3/uL (0-0.1); BASOPHILS % (AUTO) 1 % (0-1); EOSINOPHILS # (AUTO) 0.48 x10^3/uL (0-0.4); EOSINOPHILS % (AUTO) 9 % (1-7); LYMPHOCYTES # (AUTO) 0.94 x10^3/uL (1-3.4); LYMPHOCYTES % (AUTO) 17 % (22-44); MD SCAN; MONOCYTES # (AUTO) 0.52 x10^3/uL (0.2-0.8); MONOCYTES % (AUTO) 10 % (2-9); NEUTROPHILS # (AUTO) 3.43 x10^3/uL (1.8-6.8); NEUTROPHILS % (AUTO) 64 % (42-75)
[2018-08-31] MEDS: INSULIN LISPRO 100 UNITS/ML, PEN SQ-INSULIN SCH ×4 (04:43→23:00)
[2018-08-31] MEDS: SODIUM CHLORIDE FLUSH 10ML SYR IVF SCH ×2 (09:04→21:33)
[2018-08-31] MEDS: ASPIRIN 325 MG TABLET NG SCH (09:04)
[2018-08-31] MEDS: AMIODARONE 200 MG TABLET PO SCH ×2 (09:04→21:33)
[2018-08-31] MEDS: MIDODRINE 5 MG TABLET PO SCH ×3 (09:05→21:33)
[2018-08-31] MEDS: VANCOMYCIN 50 MG/ML ORAL SUSP PO SCH ×2 (09:05→21:39)
[2018-08-31] MEDS: PANTOPRAZOLE 40 MG IV IVPush SCH (09:05)
[2018-08-31] MEDS: D5%-0.45% NACL 1,000 ML IV SCH (09:06)
[2018-08-31] MEDS: INSULIN GLARGINE 100 UNITS/ML, PEN SQ-INSULIN SCH (21:39)
[2018-09-01] MEDS: D5%-0.45% NACL 1,000 ML IV SCH (03:00)
[2018-09-01 04:33] LABS: BASOPHILS # (AUTO) 0.01 x10^3/uL (0-0.1); BASOPHILS % (AUTO) 0 % (0-1); EOSINOPHILS # (AUTO) 0.52 x10^3/uL (0-0.4); EOSINOPHILS % (AUTO) 10 % (1-7); LYMPHOCYTES # (AUTO) 1.07 x10^3/uL (1-3.4); LYMPHOCYTES % (AUTO) 20 % (22-44); MD NO; MEAN CORPUSCULAR HEMOGLOBIN 29.9 pg (27.5-34.5); MEAN CORPUSCULAR HGB CONC 33.3 g/dL (33.2-36.2); MEAN CORPUSCULAR VOLUME 89.8 fL (81-97); MEAN PLATELET VOLUME 8.5 fL (7.4-10.4); MONOCYTES # (AUTO) 0.57 x10^3/uL (0.2-0.8); MONOCYTES % (AUTO) 11 % (2-9); NEUTROPHILS # (AUTO) 3.14 x10^3/uL (1.8-6.8); NEUTROPHILS % (AUTO) 59 % (42-75); PLATELET COUNT 103 x10^3/uL (130-400); RED BLOOD COUNT 2.94 x10^6/uL (4.38-5.82)
[2018-09-01 04:48] LABS: ALBUMIN 3.1 g/dL (3.4-5.0); ANION GAP 9 mmol/L (5-15); CALCIUM 8.7 mg/dL (8.5-10.1); CHLORIDE 104 mmol/L (98-107); CREATININE 1.49 mg/dL (0.7-1.3)
[2018-09-01] MEDS: INSULIN LISPRO 100 UNITS/ML, PEN SQ-INSULIN SCH ×4 (05:18→23:00)
[2018-09-01] MEDS: ASPIRIN 325 MG TABLET NG SCH (09:41)
[2018-09-01] MEDS: AMIODARONE 200 MG TABLET PO SCH ×2 (09:41→21:40)
[2018-09-01] MEDS: SODIUM CHLORIDE FLUSH 10ML SYR IVF SCH ×2 (09:41→21:38)
[2018-09-01] MEDS: VANCOMYCIN 50 MG/ML ORAL SUSP PO SCH ×2 (09:41→21:00)
[2018-09-01] MEDS: MIDODRINE 5 MG TABLET PO SCH ×3 (09:42→21:39)
[2018-09-01] MEDS: PANTOPRAZOLE 40 MG IV IVPush SCH (09:43)
[2018-09-01] MEDS: SCOPOLAMINE PATCH, 1.5MG PATCH.TD72 TD SCH (16:30)
[2018-09-01] MEDS: INSULIN GLARGINE 100 UNITS/ML, PEN SQ-INSULIN SCH (21:40)
[2018-09-02 04:45] LABS: ALBUMIN 3.1 g/dL (3.4-5.0); ANION GAP 8 mmol/L (5-15); CALCIUM 8.8 mg/dL (8.5-10.1); CHLORIDE 105 mmol/L (98-107); CREATININE 1.21 mg/dL (0.7-1.3)
[2018-09-02] MEDS: INSULIN LISPRO 100 UNITS/ML, PEN SQ-INSULIN SCH ×4 (05:00→23:04)
[2018-09-02 05:13] LABS: BASOPHILS # (AUTO) 0.03 x10^3/uL (0-0.1); BASOPHILS % (AUTO) 0 % (0-1); EOSINOPHILS # (AUTO) 0.79 x10^3/uL (0-0.4); EOSINOPHILS % (AUTO) 10 % (1-7); LYMPHOCYTES # (AUTO) 1.29 x10^3/uL (1-3.4); LYMPHOCYTES % (AUTO) 17 % (22-44); MD SCAN; MEAN CORPUSCULAR HEMOGLOBIN 29.9 pg (27.5-34.5); MEAN CORPUSCULAR HGB CONC 33.5 g/dL (33.2-36.2); MEAN PLATELET VOLUME 8.8 fL (7.4-10.4); MONOCYTES # (AUTO) 1.05 x10^3/uL (0.2-0.8); MONOCYTES % (AUTO) 14 % (2-9); NEUTROPHILS # (AUTO) 4.47 x10^3/uL (1.8-6.8); NEUTROPHILS % (AUTO) 59 % (42-75); PLATELET COUNT 130 x10^3/uL (130-400); RED BLOOD COUNT 2.94 x10^6/uL (4.38-5.82); RED CELL DISTRIBUTION WIDTH 17.5 % (9.4-14.8)
[2018-09-02] MEDS: VANCOMYCIN 50 MG/ML ORAL SUSP PO SCH ×2 (08:54→20:17)
[2018-09-02] MEDS: D5%-0.45% NACL 1,000 ML IV SCH (08:54)
[2018-09-02] MEDS: PANTOPRAZOLE 40 MG IV IVPush SCH (08:55)
[2018-09-02] MEDS: ASPIRIN 325 MG TABLET NG SCH (08:55)
[2018-09-02] MEDS: MIDODRINE 5 MG TABLET PO SCH ×3 (08:55→20:17)
[2018-09-02] MEDS: AMIODARONE 200 MG TABLET PO SCH ×2 (08:55→20:17)
[2018-09-02] MEDS: SODIUM CHLORIDE FLUSH 10ML SYR IVF SCH ×2 (08:56→20:17)
[2018-09-02] MEDS ORDERED: BUPIVACAINE/PF-EPI 0.5% 1:200K ONE (14:10)
[2018-09-02] MEDS ORDERED: FENTANYL PF 100 MCG/2ML ONE (14:44)
[2018-09-02] MEDS ORDERED: MIDAZOLAM 1 MG/ML, 2ML ONE (14:44)
[2018-09-02] MEDS ORDERED: PHENYLEPHRINE 10 MG/ML ONE (14:50)
[2018-09-02] MEDS ORDERED: GLYCOPYRROLATE 0.2MG/1ML, 5ML ONE (16:12)
[2018-09-02] MEDS ORDERED: PROPOFOL 10 MG/ML, 20ML ONE (16:12)
[2018-09-02] MEDS ORDERED: DEXAMETHASONE 4 MG/ML, 1ML ONE (16:12)
[2018-09-02] MEDS ORDERED: SUCCINYLCHOLINE 20 MG/ML, 10ML ONE (16:12)
[2018-09-02] MEDS ORDERED: CEFAZOLIN 1,000 MG ONE (16:12)
[2018-09-02] MEDS ORDERED: ONDANSETRON 2MG/ML, 2ML ONE (16:12)
[2018-09-02] MEDS ORDERED: NEOSTIGMINE 1 MG/ML, 10ML ONE (16:12)
[2018-09-02] MEDS ORDERED: ROCURONIUM 10MG/ML,5ML ONE (16:12)
[2018-09-02 17:11] VITALS: BP 123/50
[2018-09-02] MEDS: INSULIN GLARGINE 100 UNITS/ML, PEN SQ-INSULIN SCH (23:04)
[2018-09-03] MEDS: D5%-0.45% NACL 1,000 ML IV SCH (02:14)
[2018-09-03] MEDS ORDERED: SODIUM CHLORIDE 0.9%, 500ML IVBOLUS ONE (02:30)
[2018-09-03] MEDS: INSULIN LISPRO 100 UNITS/ML, PEN SQ-INSULIN SCH ×2 (04:22→08:56)
[2018-09-03] MEDS: ASPIRIN 325 MG TABLET NG SCH (08:48)
[2018-09-03] MEDS: MIDODRINE 5 MG TABLET PO SCH (08:48)
[2018-09-03] MEDS: AMIODARONE 200 MG TABLET PO SCH (08:48)
[2018-09-03] MEDS: PANTOPRAZOLE 40 MG IV IVPush SCH (08:48)
[2018-09-03] MEDS: SODIUM CHLORIDE FLUSH 10ML SYR IVF SCH (08:49)
[2018-09-03] MEDS ORDERED: VANCOMYCIN 50 MG/ML ORAL SUSP PO SCH (09:00)
[2018-09-03] MEDS ORDERED: SCOP1PAT11 TD (11:16)
[2018-09-03] MEDS ORDERED: VANC1VIA3 PO (11:16)
[2018-09-03] MEDS ORDERED: INSU100I11 SQ-INSULIN (11:16)
[2018-09-03] MEDS ORDERED: PANT40VI IVPush (11:16)
[2018-09-03] MEDS ORDERED: MIDO5TAB9 PO (11:16)
[2018-09-03] MEDS ORDERED: ASPI325T17 NG (11:16)
[2018-09-03] MEDS ORDERED: ACET325T14 PO (11:16)
[2018-09-03] MEDS ORDERED: AMIO200T42 PO (11:16)
[2018-09-03] MEDS ORDERED: INSU100I13 SQ-INSULIN (11:16)
[2018-09-11] MEDS ORDERED: VANCOMYCIN 50 MG/ML ORAL SUSP PO SCH (13:30)
== END 2018-09-03 14:17 | DRG 4 ==
LOC: ED 13:42 → EDIP 13:45 → 4EST 14:21 → 4WST 16:41 → CCU 08-16 15:46
PROVIDERS: ADMIT Family Medicine; ATTEND Family Medicine
PROC: 0T9B70Z Drainage of Bladder with Drainage Device, Via Natural or Artificial Opening (ICD-10-PCS; 2018-08-15)
PROC: 0BH17EZ Insertion of Endotracheal Airway into Trachea, Via Natural or Artificial Opening (ICD-10-PCS; principal; 2018-08-16)
PROC: 5A1955Z Respiratory Ventilation, Greater than 96 Consecutive Hours (ICD-10-PCS; 2018-08-16)
PROC: 02HV33Z Insertion of Infusion Device into Superior Vena Cava, Percutaneous Approach (ICD-10-PCS; 2018-08-16)
PROC: B548ZZA Ultrasonography of Superior Vena Cava, Guidance (ICD-10-PCS; 2018-08-16)
PROC: 30233N1 Transfusion of Nonautologous Red Blood Cells into Peripheral Vein, Percutaneous Approach (ICD-10-PCS; 2018-08-25)
PROC: 0B113F4 Bypass Trachea to Cutaneous with Tracheostomy Device, Percutaneous Approach (ICD-10-PCS; 2018-08-27)
PROC: 0DJ08ZZ Inspection of Upper Intestinal Tract, Via Natural or Artificial Opening Endoscopic (ICD-10-PCS; 2018-08-31)
PROC: 0DH64UZ Insertion of Feeding Device into Stomach, Percutaneous Endoscopic Approach (ICD-10-PCS; 2018-09-02)
DX: T83.518A Infection and inflammatory reaction due to other urinary catheter, initial encounter (principal); L89.153 Pressure ulcer of sacral region, stage 3; A41.9 Sepsis, unspecified organism; I63.89 Other cerebral infarction; G93.41 Metabolic encephalopathy; R65.21 Severe sepsis with septic shock; J96.01 Acute respiratory failure with hypoxia; I63.512 Cerebral infarction due to unspecified occlusion or stenosis of left middle cerebral artery; K27.4 Chronic or unspecified peptic ulcer, site unspecified, with hemorrhage; E43 Unspecified severe protein-calorie malnutrition; E87.1 Hypo-osmolality and hyponatremia; M62.82 Rhabdomyolysis; A04.71 Enterocolitis due to Clostridium difficile, recurrent; D62 Acute posthemorrhagic anemia; D68.69 Other thrombophilia; R47.01 Aphasia; Z99.11 Dependence on respirator [ventilator] status; E46 Unspecified protein-calorie malnutrition; E87.2 Acidosis; G81.91 Hemiplegia, unspecified affecting right dominant side; G90.3 Multi-system degeneration of the autonomic nervous system; I13.0 Hypertensive heart and chronic kidney disease with heart failure and stage 1 through stage 4 chronic kidney disease, or unspecified chronic kidney disease; J98.11 Atelectasis; L97.409 Non-pressure chronic ulcer of unspecified heel and midfoot with unspecified severity; N17.9 Acute kidney failure, unspecified; N39.0 Urinary tract infection, site not specified; R41.4 Neurologic neglect syndrome; I48.91 Unspecified atrial fibrillation; N18.3 Chronic kidney disease, stage 3 (moderate); B95.2 Enterococcus as the cause of diseases classified elsewhere; D63.8 Anemia in other chronic diseases classified elsewhere; D69.6 Thrombocytopenia, unspecified; Y84.6 Urinary catheterization as the cause of abnormal reaction of the patient, or of later complication, without mention of misadventure at the time of the procedure; Z16.21 Resistance to vancomycin; E11.22 Type 2 diabetes mellitus with diabetic chronic kidney disease; E11.621 Type 2 diabetes mellitus with foot ulcer; E11.65 Type 2 diabetes mellitus with hyperglycemia; E73.9 Lactose intolerance, unspecified; E78.00 Pure hypercholesterolemia, unspecified; E78.5 Hyperlipidemia, unspecified; E83.42 Hypomagnesemia; E87.6 Hypokalemia; E87.8 Other disorders of electrolyte and fluid balance, not elsewhere classified; I50.9 Heart failure, unspecified; I48.0 Paroxysmal atrial fibrillation; I48.2 Chronic atrial fibrillation; I49.3 Ventricular premature depolarization; I51.3 Intracardiac thrombosis, not elsewhere classified; K21.9 Gastro-esophageal reflux disease without esophagitis; K94.21 Gastrostomy hemorrhage; N25.0 Renal osteodystrophy; N40.0 Benign prostatic hyperplasia without lower urinary tract symptoms; Z22.322 Carrier or suspected carrier of Methicillin resistant Staphylococcus aureus; Z51.5 Encounter for palliative care; Z78.1 Physical restraint status; Z79.01 Long term (current) use of anticoagulants; Z79.82 Long term (current) use of aspirin; Z79.84 Long term (current) use of oral hypoglycemic drugs; Z82.49 Family history of ischemic heart disease and other diseases of the circulatory system; Z86.73 Personal history of transient ischemic attack (TIA), and cerebral infarction without residual deficits; Z87.891 Personal history of nicotine dependence; M19.90 Unspecified osteoarthritis, unspecified site
CPT/HCPCS: 36415; 36600; 74018; 77001; 84145; 99291; J3370; J3490; J7042; 31624; 36569; 70450; 71045; 76937; 80048; 80053; 80061; 81001; 82040; 82533; 82803; 82962; 83090; 83605; 83690; 83735; 83880; 84134; 84478; 85025; 85610; 85730; 86850; 86900; 86923; 87040; 87070; 87077; 87081; 87086; 87186; 87205; 87324; 93005; 93880; 94002; 94003; 99152; 99153; B4087; C8929; G0378; J0690; J0713; J1100; J2020; J2185; J2250; J2405; J2543; J2704; J2710; J3010; J3480; P9047; Q9957; 92523-GN; C1751; C9113; J0282; J0330; J1815; J1940; J2370; J3475; J7030; J7040; J7050; P9016